=== PATIENT | female | born 1955 | race African-American/Black ===

== ENCOUNTER 2016-12-30 11:55 | Inpatient (IN) | payer SELFPAY ==
[2016-12-30 12:48] LABS: Prothrombin Time 13.9 SEC (12.0-14.7)
[2016-12-30 12:49] LABS: PTT 29.9 SEC (22.9-36.1)
[2016-12-30 13:04] LABS: Band 45 % (5-11); Hematocrit 48.2 % (36.0-47.0); Mean Platelet Volume 10.2 fL (7.4-10.4); Neutrophil 26 % (42-75); Red Blood Cell (RBC) Count 4.76 mill/uL (4.20-5.40); White Blood Cell (WBC) Count 3.5 thou/uL (4.8-10.8)
[2016-12-30 13:07] LABS: ALT (SGPT) 31 U/L (8-55); AST (SGOT) 71 U/L (5-34); Alkaline Phosphatase 111 U/L (40-150); Anion Gap 19 mmol/L (10-20); BUN (Urea Nitrogen) 55 mg/dL (9.8-20.1); Bilirubin, Total 0.6 mg/dL (0.2-1.2); CK (CPK) 674 U/L (29-168); Calc. Creatinine Clearance 0 mL/min (70-130); Calcium 8.8 mg/dL (7.8-10.44); Carbon Dioxide 21 mmol/L (23-31); Chloride 103 mmol/L (98-107); Estimated GFR-MDRD 24; Globulin 4.3 g/dL (2.4-3.5); Protein, Total 7.6 g/dL (6.0-8.3)
[2016-12-30 13:13] LABS: Troponin I 0.089 ng/mL (< 0.028)
[2016-12-30 13:51] LABS: Bilirubin Negative (Negative); Blood, Urine Trace (Negative); Glucose, Urine (Dipstick) Negative (Negative); Ketone, Urine Negative (Negative); Nitrite Positive (Negative); Protein, Urine (Dipstick) Negative (Neg-Trace)
[2016-12-30 13:54] LABS: Bacteria/HPF 4+ HPF (None Seen); Hyaline Casts/LPF 7-10 HYALINE CAST LPF (0-3 Hyaline); RBC/HPF 0-3 HPF (0-3); Squamous Epithelial 0-3 HPF (0-3); WBC/HPF 21-50 HPF (0-3)
--- NOTE | 2016-12-30 13:58 | RAD ---
SINGLE VIEW OF THE CHEST 12/30/16 COMPARISON: 07/31/16 HISTORY: Weakness on the right side with slurred speech. FINDINGS: Single view of the chest shows enlarged but stable cardiomediastinal silhouette with atherosclerotic calcifications in the aorta. The pacemaker is unchanged in position. There is no evidence of consol idation, mass or pleural effusions. IMPRESSION: Cardiomegaly without evidence of acute cardiopulmonary disease. POS: [facility]
--- NOTE | 2016-12-30 14:12 | CT ---
BRAIN CT WITH IV CONTRAST 12/30/16 HISTORY: 61-year-old female with altered mental status, right sided weakness. No focal mass or midline shift. No intra or extra-axial hemorrhage. There is some chronic white rodrigo er ischemic changes. Sinuses and mastoids show no acute process. IMPRESSION: Atrophy and chronic white matter ischemic change without mass or hemorrhage or other acute process. POS: [facility]
--- NOTE | 2016-12-30 14:22 | ULT ---
RIGHT LOWER EXTREMITY VENOUS ULTRASOUND: 12/30/16 COMPARISON: None. HISTORY: Right leg heaviness, weakness, and pain for two days. TECHNIQUE: Multiplanar santana scale and color doppler images were obtained in a right lower extremity venous ultr asound. Spectral analysis of the doppler waveforms were performed. FINDINGS: The right common femoral vein, profunda femoral vein, superficial femoral vein, and popliteal vein a re normal in appearance without visible thrombus. These vessels demonstrate normal compression, flow and augmentation. The posterior tibial vein and greater saphenous vein are also patent on the right . IMPRESSION: No evidence of right lower extremity DVT. POS: [facility]
--- NOTE | 2016-12-30 17:05 | HP ---
DATE OF ADMISSION: 12/30/2016 PRIMARY CARE PHYSICIAN: Dr. Shah in [place]. PRIMARY TRADE CLERK: In [place], she cannot recall the name. CHIEF COMPLAINT: Right leg weakness, slurred speech, cough. HISTORY OF PRESENT ILLNESS: Ms. Davidson is a 61-year-old female, who looks much older than her stated age, who presents to the emergency department today initially for cough and shortness of breath. She then got around and telling about some left leg weakness and generalized body aches. In the emergency department, she had a workup with ultrasound, chest x-ray, brain CT and lab work that was largely unremarkable. We were called for admission for possible TIA. In further talking with the patient, she has got weakness in both of her lower extremities and both of her arms. She is able to lift her left stump up higher likely because it has got less weight, but overall her muscle is just aching and it hurts more to move. She denies any change in vision or hearing, taste or smell. No weakness. No paresthesias anywhere else. She has had no seizure- like activity, no increase in memory difficulties. PAST MEDICAL HISTORY: Includes 1. Coronary artery disease. 2. Hypertension. 3. Anxiety. 4. CHF, unknown type, likely systolic, possibly combined. 5. Hyperlipidemia. 6. Severe obesity. 7. COPD. 8. Peripheral vascular disease. 9. Varicose veins. 10. CKD, likely initially stage 3. Creatinine today is 2.49, back in July it was 1.2. PAST SURGICAL HISTORY: Includes, 1. Left AKA. 2. Hysterectomy. 3. Right knee repair. 4. Breast biopsy and a permanent pacemaker placement. HOME MEDICATIONS: Include, 1. Coreg 12.5 mg p.o. b.i.d. 2. Digoxin 0.125 mg daily. 3. Lasix 40 mg b.i.d. 4. KCl 8 mEq b.i.d. 5. Lisinopril 20 mg daily. 6. Wellbutrin 150 mg p.o. b.i.d. 7. Isosorbide mononitrate 30 mg daily. 8. Klonopin 1 mg daily. 9. Colace 50 mg daily. ALLERGIES: NKDA. FAMILY HISTORY: Negative for clotting or bleeding disorder. No immune dysfunction, no premature coronary disease. SOCIAL HISTORY: Negative for tobacco. She states she only smokes a few cigarettes when does when she gets angry, but was smoking 3 packs per day at her maximum for a number of years. No IV drug use or alcohol history. She lives at home with family. REVIEW OF SYSTEMS: Ten-point review of systems was performed and is negative for all other systems except as stated per HPI. PHYSICAL EXAMINATION: VITAL SIGNS: Temperature 98.2, pulse 72, blood pressure 130/63, respiratory rate list is 22, but she is only breathing 16-18 times a minute. She is satting 93%-95% on 3 liters nasal cannula which is her home oxygen level. GENERAL: She is awake. She is alert. She is oriented x3. She is a chronically ill-appearing, disheveled looking female. She is severely obese. She is not slurring her speech at present. She is still difficult to understand. HEENT: Normocephalic, atraumatic. Pupils equal, round, reactive bilaterally, mucous membranes are moist. She has no visible lesions and no thrush. She has got a nasal cannula with a concentrator in place. NECK: Supple. She has no lymphadenopathy, no JVD, no thyromegaly. I do not appreciate any bruits. Her carotids have normal upstroke. CARDIOVASCULAR: Normal S1 and S2. She has a faint systolic ejection murmur. I do not hear any diastolic rumbles. LUNGS: Have good air movement bilaterally. She has a symmetric chest excursion. She has got a prolonged expiratory phase with end-expiratory high pitched wheezing. This is mild. ABDOMEN: Obese. It is nontender, nondistended with good bowel sounds. I cannot palpate internal organs. EXTREMITIES: No cyanosis or clubbing. She has a left twhfs-[id number]-jzun amputation. There is no edema or redness at the stump site. Her right leg is intact. She has got no edema. The skin is intact. SKIN: Otherwise, warm, moist, well perfused without any other rashes or lesions. MUSCULOSKELETAL: Her hips, right knee, shoulders and bilateral elbows appear normal. She has had no palpable joint effusions. No erythema or heat. She has good range of motion passive and active. There is no pain. Muscles in the thigh right lower extremity, bilateral arms and shoulders are somewhat tender to palpation. NEUROLOGIC: Cranial nerves II-XII are grossly intact without any focal neurologic deficits. She had no normal speech pattern, though she is difficult to understand what she is saying sometimes just to the way she speaks. She has got 4/5 strength in bilateral upper arms. She has got 3-4/5 strength in her left stump. She has got 4/5 strength to her left lower extremity. She got 5/5 plantar and dorsiflexion of her foot and is able to barely raise her leg a bit off the table with a straight leg. LABORATORY EVALUATION: CMP is fairly normal. Electrolytes look good, bicarbonate 21, creatinine is 2.49 with a BUN of 55. Back in July of this year , her creatinine was 1.2. Glucose 145. Alkaline phosphatase is normal. AST elevated at 71, ALT 31. CBC showed a white count 3.5, hemoglobin 15.6, hematocrit 48.4, platelets 118,000. Her CK is elevated 674. INR is 1.1, troponin I 0.089. CK-MB is 1.7. RADIOGRAPHIC STUDIES: She had a vascular ultrasound negative for DVT. She had chest x-ray with increased cardiomegaly. She had a brain CT that showed chronic white matter changes, but no acute intracranial abnormalities. ASSESSMENT AND PLAN: 1. Diffuse muscle ache and weakness. CK is up a little bit. Start her on some IV fluids. We will actually hold her pravastatin at present. I think this certainly could be related to dehydration or having pravastatin on board. She has been on it for quite some time though. 2. Shortness of breath and cough. She does have some reactive airway sounds. We will place her on steroids, neb treatments, and levofloxacin. We will re- evaluate in the morning. 3. Acute kidney injury on stage 2 chronic kidney disease: Creatinine 2.4 now and the BUN 55, ratio greater than 20:1. We will start on gentle hydration with normal saline at 50 mL an hour overnight, recheck in the morning. 4. History of systolic congestive heart failure: Chronic. We will get a 2-D echocardiogram, watch her I's and O's, and hold her Lasix for the time being. I think she might actually be dry. 5. Hyperlipidemia, as above. 6. Severe obesity. 7. Hypertension. We will continue her regular antihypertensives with the exception of her lisinopril and her Lasix. We will hold these for the above stated renal reasons. Place the patient in observation, watch her overnight and reevaluate in the morning. JILLIAN
[2016-12-30 18:15] LABS: Troponin I 0.092 ng/mL (< 0.028)
[2016-12-30] MEDS ORDERED: Ondansetron HCl/PF 4 MG/2 ML Vial IVP PRN (18:17)
[2016-12-30] MEDS ORDERED: Ondansetron ODT 4 MG TAB SL PRN (18:17)
[2016-12-30] MEDS ORDERED: Acetaminophen 325 MG TAB PO PRN (18:40)
[2016-12-30] MEDS ORDERED: Enoxaparin Sodium 30 MG/0.3 ML SYRINGE SC SCH (18:40)
[2016-12-30] MEDS ORDERED: Albuterol Sulfate 2.5 mg/3 ml Neb NEB PRN (18:40)
[2016-12-30] MEDS ORDERED: HYDROcodone/Acetaminophen 10/325 mg Tablet PO PRN (18:40)
[2016-12-30] MEDS ORDERED: predniSONE 20 MG TAB PO SCH (18:40)
[2016-12-30] MEDS ORDERED: HYDROcodone/Acetaminophen 5/325 mg Tablet PO PRN (18:40)
[2016-12-30] MEDS: Carvedilol 6.25 MG TAB PO SCH (21:20)
[2016-12-30] MEDS: Sodium Chloride 0.9% 1,000 ML IV SCH (21:22)
--- NOTE | 2016-12-30 23:24 | PDOC.EVN ---
Event Note - Event Note Event Note: RN called - Pt had short run of NSVT. Echo pend. Add Mg and digoxin level to AM labs.
[2016-12-31 05:10] LABS: #Lymphocytes 0.9 thou/uL (1.20-3.40); #Monocytes 0.1 thou/uL (0.11-0.59); #Neutrophils 2.4 thou/uL (1.40-6.50); %Basophils 0.6 % (0.0-1.0); %Eosinophils 0.1 % (0.0-10.0); %Lymphocytes 26.9 % (21.0-51.0); %Monocytes 1.7 % (0.0-10.0); Mean Platelet Volume 10.4 fL (7.4-10.4); Red Blood Cell (RBC) Count 4.42 mill/uL (4.20-5.40); White Blood Cell (WBC) Count 3.4 thou/uL (4.8-10.8)
[2016-12-31 05:27] LABS: Digoxin 1.29 ng/mL (0.8-2.0)
[2016-12-31 05:29] LABS: Anion Gap 15 mmol/L (10-20); BUN (Urea Nitrogen) 52 mg/dL (9.8-20.1); BUN/Creatinine Ratio 26.13; Calc. Creatinine Clearance 33 mL/min (70-130); Calcium 8.6 mg/dL (7.8-10.44); Carbon Dioxide 26 mmol/L (23-31); Chloride 105 mmol/L (98-107); Estimated GFR-MDRD 31; Magnesium 2.3 mg/dL (1.6-2.6); Phosphorus 3.6 mg/dL (2.3-4.7)
[2016-12-31] MEDS ORDERED: FLU VACC QS2017-18 36 mo. & older 0.5 ML SYRINGE IM ONE (09:00)
[2016-12-31] MEDS: predniSONE 20 MG TAB PO SCH (10:00)
[2016-12-31] MEDS: Aspirin 325 MG TAB PO SCH (10:01)
[2016-12-31] MEDS: Carvedilol 6.25 MG TAB PO SCH ×2 (10:04→20:37)
[2016-12-31] MEDS: Digoxin 0.125 MG TAB PO SCH (10:06)
--- NOTE | 2016-12-31 14:38 | PDOC.PN ---
- Subjective Encounter Start Date: 12/31/16 Encounter Start Time: 12:00 Pt seen and examined. overnight events reviewed. Pt feels a little better, but still weak. No f/c, no dysuria. non/V/d/C, no CP, SOB about the smae and at baseline CK improved, renal function improved. Pt has a short run on NSVT overnight. 10 point ROS performed and neg for all systems except as above - Objective Resuscitation Status: Resuscitation Status FULL:Full Resuscitation MAR Reviewed: Yes Vital Signs & Weight: Vital Signs (12 hours) Temp Pulse Resp BP BP Pulse Ox 12/31/16 14:27 61 18 100 12/31/16 11:35 97.4 F L 50 L 16 125/62 95 12/31/16 10:06 47 L 12/31/16 08:00 97.1 F L 47 L 16 12/31/16 07:35 97.1 F L 49 L 16 135/63 97 12/31/16 06:06 59 L 16 100 12/31/16 04:33 97.3 F L 55 L 18 117/59 L 94 L Weight Admit Weight 157 lb 4.8 oz Weight 157 lb 4.8 oz I&O: 12/30/16 12/31/16 01/01/17 06:59 06:59 06:59 Intake Total 500 Output Total 0 Balance 500 Result Diagrams: 12/31/16 04:39 12/31/16 04:39 Radiology Reviewed by me: Yes EKG Reviewed by me: Yes Phys Exam - Physical Examination HEENT: PERRLA, moist MMs, sclera anicteric, oral pharynx no lesions Neck: no nodes, no JVD, supple, full ROM Respiratory: no wheezing, no rales, no rhonchi, clear to auscultation bilateral Cardiovascular: RRR, no rub murmurs stable Gastrointestinal: soft, non-tender, no distention, positive bowel sounds no RLE edema, left stumps intact Neurological: non-focal, normal sensation, moves all 4 limbs strength in BLE about the same, UE better than LE, stable Lymphatic: no nodes Psychiatric: normal affect, A&O x 3 Skin: no rash, normal turgor, cap refill <2 seconds Dx/Plan (1) Chronic systolic CHF (congestive heart failure) Code(s): I50.22 - CHRONIC SYSTOLIC (CONGESTIVE) HEART FAILURE Status: Acute (2) Physical deconditioning Code(s): R53.81 - OTHER MALAISE Status: Acute (3) Moderate dehydration Code(s): E86.0 - DEHYDRATION Status: Acute (4) CKD (chronic kidney disease) stage 3, GFR 30-59 ml/min Code(s): N18.3 - CHRONIC KIDNEY DISEASE, STAGE 3 (MODERATE) Status: Acute (5) HERNESTO (acute kidney injury) Code(s): N17.9 - ACUTE KIDNEY FAILURE, UNSPECIFIED Status: Acute (6) Rhabdomyolysis Code(s): M62.82 - RHABDOMYOLYSIS Status: Acute (7) Chronic hypoxemic respiratory failure Code(s): J96.11 - CHRONIC RESPIRATORY FAILURE WITH HYPOXIA Status: Acute (8) CAD (coronary artery disease) Code(s): I25.10 - ATHSCL HEART DISEASE OF [place] CORONARY ARTERY W/O ANG PCTRS Status: Chronic Qualifiers: Coronary Disease-Associated Artery/Lesion type: [place] artery [place] vs. transplanted heart: [place] heart Associated angina: without angina Qualified Code(s): I25.10 - Atherosclerotic heart disease of [place] coronary artery without angina pectoris Comment: No evidence of ACS, continue ASA 325mg daily and Lipitor 10mg daily (9) COPD (chronic obstructive pulmonary disease) Status: Chronic Comment: Continue Duonebs, inv steroids (10) HLD (hyperlipidemia) Code(s): E78.5 - HYPERLIPIDEMIA, UNSPECIFIED Status: Chronic - Plan * . renal functioning improving. contnue gently hydration, hold lasix. recheck in AM doubt TIA. follow up on imaging. suspect all just deconditioning with possible muscle weakness form rhabdo CK improved. CCM with hydration Continue home meds except for lasix and ACEI and statin change to inpatient. triglycerides 375.
[2016-12-31] MEDS: Sodium Chloride 0.9% 1,000 ML IV SCH (16:22)
[2017-01-01 04:50] LABS: Anion Gap 13 mmol/L (10-20); BUN (Urea Nitrogen) 50 mg/dL (9.8-20.1); CK (CPK) 171 U/L (29-168); Calc. Creatinine Clearance 44 mL/min (70-130); Calcium 8.7 mg/dL (7.8-10.44); Carbon Dioxide 26 mmol/L (23-31); Chloride 105 mmol/L (98-107); Estimated GFR-MDRD 43
[2017-01-01 05:25] LABS: Band 23 % (5-11); Hematocrit 43.6 % (36.0-47.0); Mean Platelet Volume 10.8 fL (7.4-10.4); Neutrophil 43 % (42-75); Red Blood Cell (RBC) Count 4.27 mill/uL (4.20-5.40); White Blood Cell (WBC) Count 2.6 thou/uL (4.8-10.8)
[2017-01-01] MEDS: predniSONE 20 MG TAB PO SCH (09:02)
[2017-01-01] MEDS: Aspirin 325 MG TAB PO SCH (09:02)
[2017-01-01] MEDS: Carvedilol 6.25 MG TAB PO SCH (09:03)
[2017-01-01] MEDS: Ondansetron ODT 4 MG TAB PO PRN (10:59)
[2017-01-01] MEDS: Digoxin 0.125 MG TAB PO SCH (11:04)
[2017-01-01] MEDS: Sodium Chloride 0.9% 1,000 ML IV SCH (13:16)
--- NOTE | 2017-01-01 14:26 | PDOC.PN ---
- Subjective Encounter Start Date: 01/01/17 Encounter Start Time: 09:45 Pt seen and examined earlier on rounds. Pt has been bradycardic all night, in the 40s and 50s. Pacer kicks on at HR 40 and demand paces. Pt denies CP, some WEINSTEIN, no N/V/D/c, no cough. Still complains of wekaness, but denies syncope or presyncope. 10 point ROS performed and neg x as above - Objective Resuscitation Status: Resuscitation Status FULL:Full Resuscitation MAR Reviewed: Yes Vital Signs & Weight: Vital Signs (12 hours) Temp Pulse Resp BP BP Pulse Ox 01/01/17 12:00 97.7 F 46 L 20 128/59 L 99 01/01/17 11:09 97.7 F 01/01/17 11:04 49 L 01/01/17 09:03 131/61 01/01/17 08:59 97.7 F 49 L 20 100 01/01/17 08:00 42 L 20 131/61 100 01/01/17 06:37 60 16 01/01/17 04:00 98.3 F 41 L 18 118/66 99 Weight Admit Weight 157 lb 4.8 oz Weight 157 lb 4.8 oz I&O: 12/31/16 01/01/17 01/02/17 06:59 06:59 06:59 Intake Total 500 960 Output Total 0 0 Balance 500 960 Result Diagrams: 01/01/17 03:45 01/01/17 03:45 Radiology Reviewed by me: Yes EKG Reviewed by me: Yes Phys Exam - Physical Examination Constitutional: NAD HEENT: PERRLA, moist MMs, sclera anicteric Neck: no nodes, no JVD, supple, full ROM Respiratory: no wheezing, no rales, no rhonchi, clear to auscultation bilateral Cardiovascular: no significant murmur, no rub regular, liberty cardic, occasional ectopy Gastrointestinal: soft, non-tender, no distention, positive bowel sounds Musculoskeletal: no edema, pulses present Left AKA stump without edema or erythema Neurological: non-focal, normal sensation, moves all 4 limbs Lymphatic: no nodes Psychiatric: normal affect, A&O x 3 Skin: no rash, normal turgor, cap refill <2 seconds Dx/Plan (1) Chronic systolic CHF (congestive heart failure) Code(s): I50.22 - CHRONIC SYSTOLIC (CONGESTIVE) HEART FAILURE Status: Chronic (2) Physical deconditioning Code(s): R53.81 - OTHER MALAISE Status: Acute Comment: may be from bradycardia (3) Moderate dehydration Code(s): E86.0 - DEHYDRATION Status: Resolved (4) CKD (chronic kidney disease) stage 3, GFR 30-59 ml/min Code(s): N18.3 - CHRONIC KIDNEY DISEASE, STAGE 3 (MODERATE) Status: Chronic (5) HERNESTO (acute kidney injury) Code(s): N17.9 - ACUTE KIDNEY FAILURE, UNSPECIFIED Status: Resolved Comment : Cr down to 1.4. normal around 1.2-1.3 (6) Rhabdomyolysis Code(s): M62.82 - RHABDOMYOLYSIS Status: Resolved Qualifiers: Rhabdomyolysis type: non-traumatic Qualified Code(s): M62.82 - Rhabdomyolysis (7) Chronic hypoxemic respiratory failure Code(s): J96.11 - CHRONIC RESPIRATORY FAILURE WITH HYPOXIA Status: Chronic (8) CAD (coronary artery disease) Code(s): I25.10 - ATHSCL HEART DISEASE OF [place] CORONARY ARTERY W/O ANG PCTRS Status: Chronic Qualifiers: Coronary Disease-Associated Artery/Lesion type: [place] artery [place] vs. transplanted heart: [place] heart Associated angina: without angina Qualified Code(s): I25.10 - Atherosclerotic heart disease of [place] coronary artery without angina pectoris Comment: No evidence of ACS, continue ASA 325mg daily and Lipitor 10mg daily (9) COPD (chronic obstructive pulmonary disease) Status: Chronic Comment: Continue Duonebs, inv steroids (10) HLD (hyperlipidemia) Code(s): E78.5 - HYPERLIPIDEMIA, UNSPECIFIED Status: Chronic - Plan cont current plan of care, PT/OT, social security benefits interviewer will get pacer interrogated, hold BBlocker and dig, consult cardiology * .
[2017-01-02] MEDS: Ondansetron ODT 4 MG TAB PO PRN (02:42)
[2017-01-02 05:20] LABS: #Lymphocytes 0.7 thou/uL (1.20-3.40); #Monocytes 0.2 thou/uL (0.11-0.59); #Neutrophils 2.8 thou/uL (1.40-6.50); %Eosinophils 0.2 % (0.0-10.0); %Lymphocytes 18.6 % (21.0-51.0); %Monocytes 5.4 % (0.0-10.0); Hematocrit 43.3 % (36.0-47.0); Red Blood Cell (RBC) Count 4.24 mill/uL (4.20-5.40); White Blood Cell (WBC) Count 3.7 thou/uL (4.8-10.8)
[2017-01-02 05:29] LABS: Anion Gap 13 mmol/L (10-20); BUN (Urea Nitrogen) 47 mg/dL (9.8-20.1); Calc. Creatinine Clearance 49 mL/min (70-130); Calcium 9.1 mg/dL (7.8-10.44); Carbon Dioxide 26 mmol/L (23-31); Chloride 106 mmol/L (98-107); Estimated GFR-MDRD 49
--- NOTE | 2017-01-02 06:00 | CON ---
DATE OF CONSULTATION: 01/01/2017 HISTORY OF PRESENT ILLNESS: Verenice Davidson is a 61-year-old black female with longstanding history of cardiomyopathy with ejection fraction of approximately 15%, probably due to hypertensive cardiovascular disease and coronary artery disease. She apparently underwent cardiac catheterization at [facility] in 2001 or 2002 according to the patient, which demonstrated an occluded vessel. She never underwent any intervention and has been treated medically. In 10/2009, she had a nuclear scan in [place], showing a moderate size area of scarring of the proximal to distal inferior wall, but no ischemia. She was having frequent exacerbations of her congestive heart failure with multiple hospitalizations. There also was a question regarding compliance of her medications. She was cared for by [facility] for a period of time until they stopped using this hospital. I then assumes her care in 2011, although she has never come to the office for followup. In 11/2011, she underwent placement of a single-chamber ICD. In 02/2012, she was admitted with heart failure due to dietary noncompliance. She also ran out of Lasix for one week prior to the admission. She has had multiple other admissions for heart failure. Her last admission was in 07/2016 when she was admitted due to noncompliance with medicines and food. She now presents to the emergency room with complaining of cough and increased shortness of breath. She also states that she has had general body aches as well as severe weakness of her left leg with inability to lift it. She has been found to be extremely bradycardic at times, requiring ventricular pacing at 40 per minute with her single-chamber ICD. She denies any chest discomfort. PAST MEDICAL HISTORY: Coronary artery disease, hypertension, hyperlipidemia, severe cardiomyopathy, obesity, COPD, peripheral vascular disease, chronic kidney disease. OPERATIONS: A single-chamber ICD placement, left ylkkf-[id number] amputation, hysterectomy, right knee surgery, and breast biopsy. HOME MEDICATIONS: Include carvedilol 12.5 b.i.d., digoxin 0.125 q.a.m., Lasix 40 b.i.d., KCl 10 mEq b.i.d., lisinopril 20 daily, Wellbutrin 150 b.i.d., isosorbide mononitrate 30 q.a.m., Colace daily, and Klonopin 1 mg daily. ALLERGIES: None. SOCIAL HISTORY: She continues to smoke occasionally. She had smoked up to 3 packs per day in the past. No alcohol. FAMILY HISTORY: Negative for myocardial infarction, CABG. REVIEW OF SYSTEMS: A 12 point review of systems otherwise unremarkable. PHYSICAL EXAMINATION: VITAL SIGNS: Blood pressure 117/59, pulse of 45. HEENT: PERRL. NECK: Supple. CHEST: Reveals distant breath sounds. CARDIOVASCULAR: S1 and S2 are normal, without any S3, S4, or murmurs. ABDOMEN: Normal bowel sounds without tenderness or organomegaly. EXTREMITIES: Revealed left qmtyl-wvy-zvsg amputation. There is no right leg edema. NEUROLOGIC: Grossly intact. SKIN: Warm and dry. LABORATORY AND DIAGNOSTIC DATA: EKG revealed normal sinus rhythm with episodes of nonsustained ventricular tachycardia. Interrogation of her ICD also demonstrates that she has significant episodes of nonsustained ventricular tachycardia, especially in early August when she had approximately 8 in one day. Over the last 2 months, her episodes have been less frequent. She ventricularly paces 0.3% of the time; however, on the monitor here, she is ventricularly pacing quite frequently. She was in sinus rhythm, although at times has long pauses and is ventricularly paced. Echocardiogram reveals moderate left ventricular enlargement with ejection fraction of 10% to 15%, evidence of diastolic dysfunction, defibrillator via the right ventricle, large right ventricle, left atrium enlargement, [id number]-jn-[id number] mitral regurgitation , mitral annular calcification, and mild tricuspid regurgitation. Hemoglobin 14.3, hematocrit 43.6, white count 2600, platelets 114,000. INR 1.1, sodium 139 , potassium 4.5, chloride 105, carbon dioxide 26, BUN 50, creatinine 1.47. Cholesterol 160, triglycerides 375, HDL 9, LDL 76. Troponin I 0.092. IMPRESSION: 1. Chronic systolic congestive heart failure, EF 15%.. 2. Probable coronary artery disease from her history and finding of a fixed inferior defect on scan in the past. 3. Moderate mitral regurgitation. 4. Status post single-chamber ICD. 5. Smoker, [employer] exacerbation. 6. History of nonsustained ventricular tachycardia with multiple episodes up to 8 a day in early August. However, these seem to be less frequent present time. 7. Cocaine abuse in the past. 8. History of noncompliance. 9. Renal insufficiency 10. Hypercholesterolemia. 11. Probable UTI, on Levaquin. PLAN: With her extreme sinus bradycardia, carvedilol will be held. She probably needs to undergo upgrade to a dual chamber ICD. Certainly her severe bradycardia as well as ventricularly pacing with her ejection fraction of 15% that could explain her episode of severe weakness at home. Electrophysiology will be consulted regarding upgrade to a dual chamber ICD. JILLIAN
[2017-01-02] MEDS: Sodium Chloride 0.9% 1,000 ML IV SCH (06:13)
[2017-01-02] MEDS: predniSONE 20 MG TAB PO SCH (09:08)
[2017-01-02] MEDS: Aspirin 325 MG TAB PO SCH (09:08)
[2017-01-02] MEDS ORDERED: Benzonatate 100 MG CAP PO PRN (11:31)
--- NOTE | 2017-01-02 11:35 | PDOC.PN ---
- Subjective Encounter Start Date: 01/02/17 Encounter Start Time: 11:25 Subjective: f/u for dyspnea, cough in context of severe CM EF 15% with AICD. -: Feels better overall. HERNESTO resolving. EP evaluation for ICD upgrade to -: dual-chamber device. - Objective Resuscitation Status: Resuscitation Status DNR:Do Not Resuscitate MAR Reviewed: Yes Vital Signs & Weight: Vital Signs (12 hours) Temp Pulse Resp BP Pulse Ox 01/02/17 08:00 97.4 F L 65 22 H 143/64 H 99 01/02/17 07:31 64 15 97 01/02/17 04:29 97.7 F 68 18 142/72 H 98 01/02/17 03:46 99 01/02/17 00:27 62 16 98 01/02/17 00:16 97.4 F L 65 18 138/62 100 Weight Admit Weight 157 lb 4.8 oz Weight 157 lb 4.8 oz I&O: 01/01/17 01/02/17 01/03/17 06:59 06:59 06:59 Intake Total 960 1300 Output Total 0 150 Balance 960 1150 Result Diagrams: 01/02/17 03:56 01/02/17 03:56 Radiology Reviewed by me: Yes (2D echo - EF 10-15%, mod LAE, diast dysfxn) EKG Reviewed by me: Yes (Tele - sinus bradycardia, A-sensed, V-paced 40-50's) Phys Exam - Physical Examination Constitutional: NAD HEENT: PERRLA, oral pharynx no lesions Neck: no JVD, supple wheezing bilat, diminished in bases Cardiovascular: RRR Gastrointestinal: soft, non-tender, no distention, positive bowel sounds Musculoskeletal: no edema, pulses present Neurological: normal sensation, moves all 4 limbs Psychiatric: A&O x 3 Skin: normal turgor, cap refill <2 seconds Dx/Plan (1) HERNESTO (acute kidney injury) Code(s): N17.9 - ACUTE KIDNEY FAILURE, UNSPECIFIED Status: Resolved Comment : Improved, continue supportive mgmt, hold Lisinopril another 24h (2) CKD (chronic kidney disease) stage 3, GFR 30-59 ml/min Code(s): N18.3 - CHRONIC KIDNEY DISEASE, STAGE 3 (MODERATE) Status: Chronic Comment: See #1 (3) Chronic hypoxemic respiratory failure Code(s): J96.11 - CHRONIC RESPIRATORY FAILURE WITH HYPOXIA Status: Chronic Comment: Baseline O2 requirements (4) Chronic systolic CHF (congestive heart failure) Code(s): I50.22 - CHRONIC SYSTOLIC (CONGESTIVE) HEART FAILURE Status: Chronic Comment: Resume Lasix 40mg BID (5) Rhabdomyolysis Code(s): M62.82 - RHABDOMYOLYSIS Status: Resolved Qualifiers: Rhabdomyolysis type: non-traumatic Qualified Code(s): M62.82 - Rhabdomyolysis Comment: Resolving (6) Bradycardia Code(s): R00.1 - BRADYCARDIA, UNSPECIFIED Status: Acute Comment: ? subacute , off Coreg, evaluation for ICD upgrade per EP (7) CAD (coronary artery disease) Code(s): I25.10 - ATHSCL HEART DISEASE OF [place] CORONARY ARTERY W/O ANG PCTRS Status: Chronic Qualifiers: Coronary Disease-Associated Artery/Lesion type: [place] artery [place] vs. transplanted heart: [place] heart Associated angina: without angina Qualified Code(s): I25.10 - Atherosclerotic heart disease of [place] coronary artery without angina pectoris Comment: Continue ASA 325mg daily (8) HLD (hyperlipidemia) Code(s): E78.5 - HYPERLIPIDEMIA, UNSPECIFIED Status: Chronic Comment: Will hold statin another 48h then resume due to rhabdomyolysis (9) PVD (peripheral vascular disease) Code(s): I73.9 - PERIPHERAL VASCULAR DISEASE, UNSPECIFIED Status: Chronic - Plan continue antibiotics, PT/OT, drug abuse social worker, respiratory therapy Stable overall -: Continue ASA 325mg daily -: EP evaluation for AICD upgrade -: Palliative care screening appreciated -: PT for mobilization * Resume Lasix 40mg BID * Change Duonebs q4h * AM lab: BMP
[2017-01-02] MEDS: Furosemide 40 MG TAB PO SCH (14:15)
[2017-01-02] MEDS: clonazePAM 1 MG TAB PO SCH (21:30)
[2017-01-03] MEDS: Furosemide 40 MG TAB PO SCH ×2 (05:17→14:36)
[2017-01-03 05:32] LABS: Anion Gap 15 mmol/L (10-20); BUN (Urea Nitrogen) 37 mg/dL (9.8-20.1); Calc. Creatinine Clearance 53 mL/min (70-130); Calcium 9.3 mg/dL (7.8-10.44); Carbon Dioxide 25 mmol/L (23-31); Chloride 106 mmol/L (98-107); Estimated GFR-MDRD 52
[2017-01-03 05:41] LABS: Bilirubin Negative (Negative); Blood, Urine Negative (Negative); Glucose, Urine (Dipstick) Negative (Negative); Ketone, Urine Negative (Negative); Nitrite Negative (Negative); Protein, Urine (Dipstick) Negative (Neg-Trace); Urobilinogen 0.2 mg/dL (0.2-1.0)
[2017-01-03 05:44] LABS: Bacteria/HPF None Seen HPF (None Seen); Hyaline Casts/LPF 0-3 HYALINE CAST LPF (0-3 Hyaline); RBC/HPF 0-3 HPF (0-3); Squamous Epithelial 0-3 HPF (0-3); WBC/HPF None Seen HPF (0-3)
[2017-01-03] MEDS: predniSONE 20 MG TAB PO SCH (07:47)
[2017-01-03] MEDS: Aspirin 325 MG TAB PO SCH (07:50)
[2017-01-03] MEDS: clonazePAM 1 MG TAB PO SCH ×2 (07:50→21:31)
[2017-01-03] MEDS: Bupropion 150 MG SR TAB PO SCH ×2 (07:50→21:31)
[2017-01-03] MEDS ORDERED: Furosemide 40 MG/4 ML VIAL SLOW IVP SCH (08:00)
--- NOTE | 2017-01-03 08:14 | PDOC.EVN ---
Event Note - Event Note Event Note: called to evaluate pt for sob, rr- 28, sat 95 0n 2 lit chest- prolonged expiratory phase, some bibasilar rales a/p sob due to chf and component of copd will give one dose of 60 mg iv lasix, pt on prednisone, pt also got 2 neb rx f/u cxr and abg will put her on bipap and transfer to [facility]
[2017-01-03] MEDS ORDERED: Furosemide 100 MG/10 ML VIAL SLOW IVP SCH (08:15)
[2017-01-03] MEDS ORDERED: Morphine 4 MG/ML VIAL ONE (09:56)
--- NOTE | 2017-01-03 10:21 | CON ---
DATE OF CONSULTATION: 01/03/2017 REFERRING PHYSICIAN: Dr. Walt Frank. REASON FOR CONSULTATION: Cardiomyopathy and congestive heart failure combined with bradycardia - mel luation for upgrade of ICD to Dual chamber/cardiac resynchronization therapy system. HISTORY OF PRESENT ILLNESS: I was asked by Dr. Frank to provide electrophysiology consultation fo r Ms. Davidson, a 61-year-old lady known to our service with a history of single chamber ICD implantat ion in 2011. She has a known ejection fraction of approximately 15%. She was admitted to the [facility] on 12/31/2016 with increasing dyspnea and cough. She has decompensated congestive heart failure, and has been found to have periods of significant bradycardia. Her carvedilol has been held, and I a m asked to consider her for upgrade of her device to a dual chamber pacing system. Further, she has developed left bundle branch block and would be a candidate for a cardiac resynchronization therapy p acing. This morning, she is being moved to the [facility] due to severe hypoxia. On 2 liters nasal cannula oxygen her blood gas pO2 was 54. She is sitting upright in bed and has bilateral wheezes on exam. She is g asping for air. Her rhythm this morning is stable with a rate in the 60-70 beats per minute range. PAST MEDICAL HISTORY: 1. Chronic systolic congestive heart failure with ejection fraction of 15%. 2. History of moderate mitral regurgitation. 3. Single chamber ICD in situ. 4. Chronic obstructive pulmonary disease. 5. History of cocaine abuse. 6. History of noncompliance. 7. Renal insufficiency. CURRENT MEDICATIONS: Albuterol, aspirin, furosemide, isosorbide mononitrate, levofloxacin, prednison e. ALLERGIES: None. FAMILY HISTORY: No family history of arrhythmias. SOCIAL HISTORY: Continued tobacco use. No alcohol. REVIEW OF SYSTEMS: Twelve point system review was discussed with Ms. Davidson. Aside from a cough, w eakness and dyspnea others negative. PHYSICAL EXAMINATION: VITAL SIGNS: Blood pressure 126/72, pulse is 65 and regular. GENERAL: She is alert and oriented with appropriate affect. HEENT: Moist mucous membranes. Nonicteric sclerae. NECK: No bruits. Normal thyroid. No JVD. CHEST: Decreased breath sounds with bilateral rales. HEART: Regular rate and rhythm without murmurs or gallops auscultable. The PMI is laterally displac ed. ABDOMEN: Bowel sounds positive, normoactive and nontender. No hepatosplenomegaly or masses. EXTREMITIES: Left above the knee amputation. No edema. NEUROLOGIC: Grossly intact. DIAGNOSTIC DATA: EKG on admission demonstrates normal sinus rhythm at 87 beats per minute, left bund le branch block, nonspecific ST-T wave changes. WBC 3.7, hemoglobin 13.6, hematocrit 43.3, platelet count 144,000, BUN 37, creatinine 1.26, potassium 4.5. ABG on 2 liters nasal cannula, pO2 54, pH 7.4 8. IMPRESSION: 1. Severe cardiomyopathy with ejection fraction of 15%. 2. Decompensating congestive heart failure. 3. Chronic obstructive pulmonary disease. 4. Bradycardia/left bundle branch block. RECOMMENDATIONS: Ms. Davidson is certainly a candidate for upgrade of her single chamber ICD to a car diac resynchronization therapy device, which would hopefully improve her congestive heart failure and allow reintroduction of beta suzanne therapy. However, she is in respiratory distress currently and certainly cannot lay flat. She is moving to the [facility] now for more aggressive therapy including BiPAP and nebulizer therapies and further diuresis. When she is stable from a heart failure/pulmonary standpoint, we will plan upgrade of her device. I described to her the rationale for that procedure along with risks involved. She understands the ris ks include but are not limited to bleeding, infection, damage to blood vessels, hemo/pneumothorax, pe ricardial tamponade, stroke, myocardial infarction, . She would like to proceed after her pulmo nary status has improved.
--- NOTE | 2017-01-03 10:22 | RAD ---
PORTABLE CHEST: Comparison: 12-30-16 History: Shortness of breath. FINDINGS: Heart size is enlarged. Interstitial markings are slightly increased and appear slightly more promine nt than on the prior exam suggesting some element of edema. IMPRESSION: Cardiomegaly with chronic lung changes, however, the interstitial changes appear more prominent than on the prior exam suggesting there may be some element of edema present. POS: [facility]
--- NOTE | 2017-01-03 10:57 | CON ---
DATE OF CONSULTATION: 01/03/2017 HISTORY OF PRESENT ILLNESS: She is a 61-year-old DNR patient who was transferred from the [facility] to the [facility] for respiratory distress. She has been here in the hospital now for several days. She was to have some kind of a pacemaker adj ustment done. She has cardiomyopathy, ejection fraction 15%. At this stage it is difficult to get any additional information from her. She was placed on BiPAP fo r comfort measures. She has undergone extensive evaluation in the past at different areas. She is d enying any chest pain, chills, sweats, hemoptysis. She was found to be bradycardic on admission with a ventricular rate of 40, single chamber. I understand they want to switch her to a dual chamber. PAST MEDICAL HISTORY: Chronic obstructive pulmonary disease, coronary artery disease, hypertension, dyslipidemia, cardiomyopathy 15%, obesity, renal failure, peripheral vascular disease. PAST SURGICAL HISTORY: Multiple as outlined extensively including hysterectomy, knee, breast biopsy, pacemaker, stent, left [place] amputation. MEDICATIONS: Coreg 12.5, Lasix 40, Tessalon, potassium, ISMO 30, Lasix 20, bupropion 150, Zestril 20 . REVIEW OF SYSTEMS: Difficult to obtain. PHYSICAL EXAMINATION: VITAL SIGNS: Blood pressure 171/80, sats apparently low, now they are 100%, respirations 32, tempera ture 98. CHEST: She has bilateral crackles. CARDIAC: Normal S1-S2. ABDOMEN: Soft. No masses. LABORATORY: White count 3.7, H&H 13 and 43, platelet count is normal. Chemistry shows creatinine 1. 2. Electrolytes are normal. X-ray shows CHF. IMPRESSION: 1. Respiratory failure secondary to congestive heart failure. 2. Encephalopathy. 3. Bradycardiac. 4. Renal failure. 5. Chronic obstructive pulmonary disease. PLAN: I have added steroids, neb treatments, supportive care, noninvasive ventilation. I will follow while in the [facility].
[2017-01-03] MEDS ORDERED: Morphine PF 1 MG/ML SYR IVP PRN (12:11)
--- NOTE | 2017-01-03 15:12 | PDOC.PN ---
- Subjective Encounter Start Date: 01/03/17 Encounter Start Time: 12:00 Subjective: f/u for cough, dyspnea. Developed severe resp distress overnight requiring -: BiPAP and IV Lasix. Improved overall currently. Evaluation in progress for -: AICD upgrade. Off BiPAP currently. - Objective Resuscitation Status: Resuscitation Status DNR:Do Not Resuscitate MAR Reviewed: Yes Vital Signs & Weight: Vital Signs (12 hours) Temp Pulse Resp BP Pulse Ox 01/03/17 14:00 71 18 99 01/03/17 12:00 99.1 F 74 17 97/68 97 01/03/17 10:00 95 24 H 99 01/03/17 08:52 88 32 H 171/88 H 100 01/03/17 08:50 90 01/03/17 08:44 98.3 F 96 32 H 99 01/03/17 08:00 98.3 F 96 22 H 96 01/03/17 07:30 98.3 F 96 22 H 173/114 H 100 01/03/17 07:20 85 28 H 94 L 01/03/17 07:15 91 L 01/03/17 07:11 82 32 H 91 L 01/03/17 05:13 98.8 F 87 20 135/95 H 100 Weight Admit Weight 157 lb 4.8 oz Weight 162 lb 1.6 oz I&O: 01/02/17 01/03/17 01/04/17 06:59 06:59 06:59 Intake Total 1300 830 240 Output Total 150 1100 Balance 1150 -270 240 Result Diagrams: 01/02/17 03:56 01/03/17 05:03 Additional Labs: Microbiology 04/17/16 04:10 Urine voided Urine Culture - Final NO GROWTH AT 36 HOURS Laboratory Tests 02/25/16 03/26/16 04/15/16 08:48 Unknown 18:29 Creatinine 1.48 H Phosphorus Creatine Kinase B-Natriuretic Peptide 3686.8 H 3238.9 H 25-OH Vitamin D Total 04/15/16 04/16/16 04/16/16 18:29 05:53 05:53 Creatinine 1.60 H Phosphorus 4.8 H Creatine Kinase B-Natriuretic Peptide 451.7 H 25-OH Vitamin D Total 17.4 L 04/17/16 04/18/16 12/30/16 06:03 05:42 12:32 Creatinine 1.72 H Phosphorus 3.7 3.9 Creatine Kinase 674 H B-Natriuretic Peptide 25-OH Vitamin D Total 12/31/16 12/31/16 01/01/17 04:39 04:39 03:45 Creatinine 1.99 H 1.47 H Phosphorus Creatine Kinase 374 H 171 H B-Natriuretic Peptide 25-OH Vitamin D Total 01/02/17 03:56 Creatinine 1.33 H Phosphorus Creatine Kinase B-Natriuretic Peptide 25-OH Vitamin D Total Radiology Reviewed by me: Yes (PCXR - bilat pulm edema) EKG Reviewed by me: Yes (Tele - sinus liberty, V-paced) Phys Exam - Physical Examination Constitutional: NAD lethargic but answers questions HEENT: PERRLA, oral pharynx no lesions Neck: no JVD, supple basilar crackles Cardiovascular: RRR Gastrointestinal: soft, non-tender, no distention, positive bowel sounds Musculoskeletal: no edema, pulses present Neurological: moves all 4 limbs Psychiatric: A&O x 3 Skin: normal turgor, cap refill <2 seconds Dx/Plan (1) Acute on chronic systolic (congestive) heart failure Code(s): I50.23 - ACUTE ON CHRONIC SYSTOLIC (CONGESTIVE) HEART FAILURE Status : Acute Comment: EF 10-15%, likely more chronic component with acute exacerbation, Lasix, EP evaluation for AICD upgrade (2) HERNESTO (acute kidney injury) Code(s): N17.9 - ACUTE KIDNEY FAILURE, UNSPECIFIED Status: Resolved Comment : Improved, continue supportive mgmt, hold Lisinopril another 24h (3) CKD (chronic kidney disease) stage 3, GFR 30-59 ml/min Code(s): N18.3 - CHRONIC KIDNEY DISEASE, STAGE 3 (MODERATE) Status: Chronic Comment: See #1 (4) Chronic hypoxemic respiratory failure Code(s): J96.11 - CHRONIC RESPIRATORY FAILURE WITH HYPOXIA Status: Chronic Comment: Baseline O2 requirements (5) Chronic systolic CHF (congestive heart failure) Code(s): I50.22 - CHRONIC SYSTOLIC (CONGESTIVE) HEART FAILURE Status: Chronic Comment: Resume Lasix 40mg BID (6) Rhabdomyolysis Code(s): M62.82 - RHABDOMYOLYSIS Status: Resolved Qualifiers: Rhabdomyolysis type: non-traumatic Qualified Code(s): M62.82 - Rhabdomyolysis Comment: Resolving (7) Bradycardia Code(s): R00.1 - BRADYCARDIA, UNSPECIFIED Status: Acute Comment: ? subacute , off Coreg, evaluation for ICD upgrade per EP (8) CAD (coronary artery disease) Code(s): I25.10 - ATHSCL HEART DISEASE OF [place] CORONARY ARTERY W/O ANG PCTRS Status: Chronic Qualifiers: Coronary Disease-Associated Artery/Lesion type: [place] artery [place] vs. transplanted heart: [place] heart Associated angina: without angina Qualified Code(s): I25.10 - Atherosclerotic heart disease of [place] coronary artery without angina pectoris Comment: Continue ASA 325mg daily (9) HLD (hyperlipidemia) Code(s): E78.5 - HYPERLIPIDEMIA, UNSPECIFIED Status: Chronic Comment: Will hold statin another 48h then resume due to rhabdomyolysis (10) PVD (peripheral vascular disease) Code(s): I73.9 - PERIPHERAL VASCULAR DISEASE, UNSPECIFIED Status: Chronic - Plan continue antibiotics, PT/OT, adoption social worker, respiratory therapy Stable currently -: Continue Lasix 40mg BID -: EP for AICD upgrade -: Continue ASA 325mg daily -: Monitor I/O's and daily weight * AM lab: BMP, CBC * Transfer to Tele
[2017-01-03 17:46] LABS: Oxyhemoglobin 90.8 % (94.0-97.0); Sodium 142 mmol/L (135-148)
[2017-01-03 17:47] LABS: Mode 2LNC; Modified Allen's Test POSITIVE; Vent NO
[2017-01-04 05:16] LABS: Anion Gap 13 mmol/L (10-20); BUN (Urea Nitrogen) 38 mg/dL (9.8-20.1); Calc. Creatinine Clearance 53 mL/min (70-130); Calcium 8.8 mg/dL (7.8-10.44); Carbon Dioxide 32 mmol/L (23-31); Chloride 99 mmol/L (98-107); Estimated GFR-MDRD 51
[2017-01-04] MEDS: Furosemide 40 MG TAB PO SCH ×2 (06:12→14:32)
[2017-01-04] MEDS: clonazePAM 1 MG TAB PO SCH ×2 (10:33→20:32)
[2017-01-04] MEDS: Bupropion 150 MG SR TAB PO SCH ×2 (10:33→20:33)
[2017-01-04] MEDS: Aspirin 325 MG TAB PO SCH (10:33)
--- NOTE | 2017-01-04 11:48 | PDOC.PN ---
- Subjective Encounter Start Date: 01/04/17 Encounter Start Time: 11:30 Subjective: f/u for CHF, resp failure and ischemic cardiomyopathy. Overall feeling well -: No events overnight. Considering AICD upgrade to dual-chamber device. - Objective Resuscitation Status: Resuscitation Status DNR:Do Not Resuscitate MAR Reviewed: Yes Vital Signs & Weight: Vital Signs (12 hours) Temp Pulse Resp BP Pulse Ox 01/04/17 10:51 58 L 20 97 01/04/17 07:27 100 01/04/17 07:25 60 20 98 01/04/17 04:35 99 01/04/17 04:00 97.4 F L 64 20 158/73 H 100 01/04/17 01:54 60 18 100 01/04/17 00:00 97.8 F 56 L 16 143/77 H 99 Weight Admit Weight 157 lb 4.8 oz Weight 149 lb 11.2 oz I&O: 01/03/17 01/04/17 01/05/17 06:59 06:59 06:59 Intake Total 830 840 Output Total 1100 Balance -270 840 Result Diagrams: 01/02/17 03:56 01/04/17 04:45 EKG Reviewed by me: Yes (Tele - sinus liberty in 50's) Phys Exam - Physical Examination Constitutional: NAD alert, responsive HEENT: PERRLA, oral pharynx no lesions Neck: no JVD, supple few basilar crackles Cardiovascular: RRR Gastrointestinal: soft, non-tender, no distention, positive bowel sounds Musculoskeletal: pulses present Neurological: normal sensation, moves all 4 limbs Psychiatric: A&O x 3 Skin: normal turgor, cap refill <2 seconds Dx/Plan (1) Acute on chronic systolic (congestive) heart failure Code(s): I50.23 - ACUTE ON CHRONIC SYSTOLIC (CONGESTIVE) HEART FAILURE Status : Acute Comment: EF 10-15%, likely more chronic component with acute exacerbation, Lasix, EP evaluation for AICD upgrade (2) HERNESTO (acute kidney injury) Code(s): N17.9 - ACUTE KIDNEY FAILURE, UNSPECIFIED Status: Resolved Comment : Improved, continue supportive mgmt, hold Lisinopril another 24h (3) CKD (chronic kidney disease) stage 3, GFR 30-59 ml/min Code(s): N18.3 - CHRONIC KIDNEY DISEASE, STAGE 3 (MODERATE) Status: Chronic Comment: See #1 (4) Chronic hypoxemic respiratory failure Code(s): J96.11 - CHRONIC RESPIRATORY FAILURE WITH HYPOXIA Status: Chronic Comment: Baseline O2 requirements (5) Chronic systolic CHF (congestive heart failure) Code(s): I50.22 - CHRONIC SYSTOLIC (CONGESTIVE) HEART FAILURE Status: Chronic Comment: Resume Lasix 40mg BID (6) Rhabdomyolysis Code(s): M62.82 - RHABDOMYOLYSIS Status: Resolved Qualifiers: Rhabdomyolysis type: non-traumatic Qualified Code(s): M62.82 - Rhabdomyolysis Comment: Resolving (7) Bradycardia Code(s): R00.1 - BRADYCARDIA, UNSPECIFIED Status: Acute Comment: ? subacute , off Coreg, evaluation for ICD upgrade per EP (8) CAD (coronary artery disease) Code(s): I25.10 - ATHSCL HEART DISEASE OF [place] CORONARY ARTERY W/O ANG PCTRS Status: Chronic Qualifiers: Coronary Disease-Associated Artery/Lesion type: [place] artery [place] vs. transplanted heart: [place] heart Associated angina: without angina Qualified Code(s): I25.10 - Atherosclerotic heart disease of [place] coronary artery without angina pectoris Comment: Continue ASA 325mg daily (9) HLD (hyperlipidemia) Code(s): E78.5 - HYPERLIPIDEMIA, UNSPECIFIED Status: Chronic Comment: Will hold statin another 48h then resume due to rhabdomyolysis (10) PVD (peripheral vascular disease) Code(s): I73.9 - PERIPHERAL VASCULAR DISEASE, UNSPECIFIED Status: Chronic - Plan PT/OT, marriage and family social worker, respiratory therapy Stable overall -: EP re-eval for AICD upgrade to dual-chamber device -: Continue Lasix 40mg BID -: Continue Levaquin 250mg po daily -: Continue Solumedrol 40mg IV BID * Pt will consider hospice upon returning home and can discuss it with her scale manager * AM lab: BMP
--- NOTE | 2017-01-04 12:45 | PRG ---
DATE OF SERVICE: 01/04/2017 SUBJECTIVE: Verenice Davidson is awake, alert, and responsive. No shortness of breath. OBJECTIVE: VITAL SIGNS: Sats are 100% on 3 liters, temperature is 97, blood pressure 157/83. CHEST: Reveals no crackles or wheezing. CARDIAC: Normal S1 and S2. LABORATORY DATA: Creatinine 1.2. IMPRESSION: 1. Respiratory failure. 2. Congestive heart failure. 3. Renal failure. PLAN: Continue cardiac care. The patient apparently scheduled for cardiac intervention. We will follow while in the telemetry unit.
[2017-01-05] MEDS: Furosemide 40 MG TAB PO SCH ×2 (06:10→13:45)
[2017-01-05] MEDS: clonazePAM 1 MG TAB PO SCH ×2 (09:14→21:15)
[2017-01-05] MEDS: Bupropion 150 MG SR TAB PO SCH ×2 (09:15→21:15)
[2017-01-05] MEDS ORDERED: Gentamicin 80 MG/2 ML VIAL ONE (10:11)
[2017-01-05] MEDS ORDERED: CEFAZOLIN/Water 2 GM/20 ML SYRINGE ONE ×2 (10:11)
[2017-01-05] MEDS ORDERED: CEFAZOLIN 1 GM VIAL ONE (10:11)
[2017-01-05] MEDS ORDERED: Lidocaine 1% PF 5 ML VIAL ONE (10:14)
[2017-01-05] MEDS ORDERED: Propofol 200 MG/20 ML VIAL ONE (10:14)
[2017-01-05] MEDS ORDERED: Ondansetron HCl/PF 4 MG/2 ML Vial ONE (10:14)
[2017-01-05] MEDS ORDERED: Fentanyl 100 MCG/2 ML VIAL ONE (10:32)
[2017-01-05] MEDS ORDERED: traMADol HCl 50 MG TAB PO PRN (12:14)
[2017-01-05] MEDS ORDERED: diphenhydrAMINE 25 MG CAP PO PRN (12:14)
[2017-01-05] MEDS ORDERED: Acetaminophen 325 MG TAB PO PRN (12:14)
[2017-01-05] MEDS ORDERED: Ondansetron HCl/PF 4 MG/2 ML Vial IVP PRN (12:14)
[2017-01-05] MEDS ORDERED: Morphine PF 1 MG/ML SYR IVP PRN (12:16)
--- NOTE | 2017-01-05 12:23 | RAD ---
CHEST 1 VIEW: HISTORY: Defibrillator revision. FINDINGS: The cardiac silhouette is magnified and enlarged. Pulmonary vasculature is engorged. Mediastinum is midline with multilead left subclavian cardiac electronic device in place. Leads overlie the right atrium, right ventricle, and coronary sinus. There is no evidence of pneumothorax. equipment monitor phototypesetting leads overlie the chest. There is calcification in the arterial structures. IMPRESSION: 1. Left subclavian cardiac electronic device is in good radiographic position. 2. Cardiomegaly with pulmonary vascular congestion. 3. Atherosclerosis. POS: [facility]
--- NOTE | 2017-01-05 12:54 | PDOC.PN ---
- Subjective Encounter Start Date: 01/05/17 Encounter Start Time: 09:20 -: old records requested/rev Pt not seen by me for last three days. to laboratory engineer now for AICD upgrade to dual chamber pacing by Dr Baumann. Chart reviewed for last three days No F/C, no N/V/d/c, no CP or SOB at present, feels better and less weak. 10 point ROS performed and neg for all systems except as above - Objective Resuscitation Status: Resuscitation Status DNR:Do Not Resuscitate MAR Reviewed: Yes Vital Signs & Weight: Vital Signs (12 hours) Temp Pulse Resp BP Pulse Ox 01/05/17 08:11 100 01/05/17 08:09 62 20 01/05/17 07:25 62 16 177/86 H 01/05/17 04:00 97.5 F L 67 16 163/76 H 100 01/05/17 02:16 66 18 97 Weight Admit Weight 157 lb 4.8 oz Weight 152 lb 3.2 oz I&O: 01/04/17 01/05/17 01/06/17 06:59 06:59 06:59 Intake Total 840 Output Total 600 Balance 840 -600 Result Diagrams: 01/02/17 03:56 01/04/17 04:45 Radiology Reviewed by me: Yes EKG Reviewed by me: Yes Phys Exam - Physical Examination Constitutional: NAD HEENT: PERRLA, moist MMs, sclera anicteric, oral pharynx no lesions Neck: no nodes, no JVD, supple, full ROM Respiratory: no wheezing, no rhonchi bibasialr crackles stable Cardiovascular: RRR, no significant murmur, no rub liberty Gastrointestinal: soft, non-tender, no distention, positive bowel sounds Musculoskeletal: pulses present, edema present stump with edema as well Neurological: non-focal, normal sensation, moves all 4 limbs Lymphatic: no nodes Psychiatric: normal affect, A&O x 3 Skin: no rash, normal turgor, cap refill <2 seconds Dx/Plan (1) Chronic systolic CHF (congestive heart failure) Code(s): I50.22 - CHRONIC SYSTOLIC (CONGESTIVE) HEART FAILURE Status: Chronic Comment: Resume Lasix 40mg BID (2) Physical deconditioning Code(s): R53.81 - OTHER [place] Status: Acute Comment: from bradycardia (3) Moderate dehydration Code(s): E86.0 - DEHYDRATION Status: Resolved (4) CKD (chronic kidney disease) stage 3, GFR 30-59 ml/min Code(s): N18.3 - CHRONIC KIDNEY DISEASE, STAGE 3 (MODERATE) Status: Chronic Comment: See #1 (5) HERNESTO (acute kidney injury) Code(s): N17.9 - ACUTE KIDNEY FAILURE, UNSPECIFIED Status: Resolved Comment : Improved, continue supportive mgmt, hold Lisinopril another 24h (6) Rhabdomyolysis Code(s): M62.82 - RHABDOMYOLYSIS Status: Resolved Qualifiers: Rhabdomyolysis type: non-traumatic Qualified Code(s): M62.82 - Rhabdomyolysis Comment: Resolved (7) Chronic hypoxemic respiratory failure Code(s): J96.11 - CHRONIC RESPIRATORY FAILURE WITH HYPOXIA Status: Chronic Comment: Baseline O2 requirements (8) CAD (coronary artery disease) Code(s): I25.10 - ATHSCL HEART DISEASE OF [place] CORONARY ARTERY W/O ANG PCTRS Status: Chronic Qualifiers: Coronary Disease-Associated Artery/Lesion type: [place] artery [place] vs. transplanted heart: [place] heart Associated angina: without angina Qualified Code(s): I25.10 - Atherosclerotic heart disease of [place] coronary artery without angina pectoris Comment: Continue ASA 325mg daily (9) COPD (chronic obstructive pulmonary disease) Status: Chronic Comment: Continue Duonebs, inv steroids (10) HLD (hyperlipidemia) Code(s): E78.5 - HYPERLIPIDEMIA, UNSPECIFIED Status: Chronic Comment: Will hold statin another 48h then resume due to rhabdomyolysis - Plan * . follow up results of AICD upgrade. case discussed iwgenoveva Baumann, aniket well, no identified complications
[2017-01-05] MEDS: Aspirin 325 MG TAB PO SCH (13:45)
--- NOTE | 2017-01-05 14:40 | PDOC.CTH ---
<Yamini Cottrell - Last Filed: 01/05/17 14:53> Cardiology Progress Note - Subjective the pt seen and examined. No overnight events. No cardiac complaints. S/p AICD upgrade to dual chamber AICD today. She complains of very light discomfort at the procedure site. - Objective Vital Signs Temp Pulse Resp BP Pulse Ox 01/05/17 08:11 100 01/05/17 08:09 62 20 01/05/17 07:25 62 16 177/86 H 01/05/17 04:00 97.5 F L 67 16 163/76 H 100 Admit Weight 157 lb 4.8 oz Weight 152 lb 3.2 oz 01/04/17 01/05/17 01/06/17 06:59 06:59 06:59 Intake Total 840 120 Output Total 600 450 Balance 840 -600 -330 - Physical Examination General/Neuro: alert & oriented x3 Neck: no JVD present Lungs: other: (coases and diminished at bases) Heart: RRR Abdomen: soft Extremities: other: (Lt AKA; no edema in RLE) - Labs Result Diagrams: 01/02/17 03:56 01/04/17 04:45 Troponin/CKMB CK-MB (CK-2) 1.7 ng/mL (0-6.6) 12/30/16 12:32 Troponin I 0.092 ng/mL (< 0.028) H 12/30/16 17:44 - Assessment/Plan 1. Chronic systolic HF with EF 15% and S/p AICD placement - s/p AICD upgrade to dual chamber pacing by Dr Baumann today; The site is clean with dry Dressing; on Lasix 40mg PO BID; 2. mild CAD - on ASA and BBlocker; cont. monitor on tele 3. HTN - Start Coreg 12.5mg BID; cont. monitor 4. CKD stage 3 - stable; no VINICIUS at this moment; 5. Hyperlipidemia - LDL on 12/30 was 76; no on Statin med 6. UTI - on Antibiotic IV meds; managed by PCP 7. COPD - on Duonebs and inv steroids; managed by PCP 8. PVD with hx of [place] reviewed Review of Systems - Review of Systems Constitutional: reports: no symptoms reported EENTM: reports: no symptoms reported Respiratory: reports: no symptoms reported Cardiac (ROS): reports: no symptoms reported ABD/GI: reports: no symptoms reported : reports: no symptoms reported Musculoskeletal: reports: no symptoms reported <Tawnya Blackwell - Last Filed: 01/05/17 15:19> Cardiology Progress Note - Objective Vital Signs Temp Pulse Resp BP Pulse Ox 01/05/17 15:00 76 16 01/05/17 08:11 100 01/05/17 08:09 62 20 01/05/17 07:25 62 16 177/86 H 01/05/17 04:00 97.5 F L 67 16 163/76 H 100 Admit Weight 157 lb 4.8 oz Weight 152 lb 3.2 oz 01/04/17 01/05/17 01/06/17 06:59 06:59 06:59 Intake Total 840 120 Output Total 600 450 Balance 840 -600 -330 - Labs Result Diagrams: 01/02/17 03:56 01/04/17 04:45 Troponin/CKMB CK-MB (CK-2) 1.7 ng/mL (0-6.6) 12/30/16 12:32 Troponin I 0.092 ng/mL (< 0.028) H 12/30/16 17:44 - Assessment/Plan Pt. seen and eval. by me. Back from labor employment associate after new AICD. No complaints. I agree with the A/P by the SPECIAL EDUCATION SCIENCE TEACHER. Resume coreg.
[2017-01-05] MEDS ORDERED: Iopamidol 370 76% 50 ML VIAL FS ONE (17:19)
[2017-01-05] MEDS: Carvedilol 6.25 MG TAB PO SCH (18:10)
[2017-01-05] MEDS: CEFAZOLIN 1 GM, Syringe 2.5 ML in Sterile Water 7.5 ML SLOW IVP SCH (18:11)
--- NOTE | 2017-01-06 00:01 | PRG ---
DATE OF SERVICE: 01/05/2017 SUBJECTIVE: The patient was seen today. She is doing well status post pacemaker insertion. OBJECTIVE: VITAL SIGNS: Temperature 97, 97% on room air, pulse 67, blood pressure 160/76. CHEST: Decreased breath sounds, no wheezing. CARDIAC: Normal S1, S2. No gallops. ABDOMEN: Soft. No masses. LABORATORY AND X-RAY FINDINGS: Chest x-ray postprocedure shows significant encephalization, increase d markings, cardiomegaly. IMPRESSION: 1. Respiratory failure. 2. Congestive heart failure. PLAN: 1. Continue neb treatments, supportive care. 2. Discontinue steroids, discontinue morphine. 3. We will follow.
[2017-01-06] MEDS: CEFAZOLIN 1 GM, Syringe 2.5 ML in Sterile Water 7.5 ML SLOW IVP SCH ×2 (02:27→10:04)
[2017-01-06 04:54] LABS: #Lymphocytes 0.8 thou/uL (1.20-3.40); #Monocytes 0.5 thou/uL (0.11-0.59); #Neutrophils 8.4 thou/uL (1.40-6.50); %Basophils 0.2 % (0.0-1.0); %Eosinophils 0.1 % (0.0-10.0); %Lymphocytes 8.2 % (21.0-51.0); %Monocytes 5.5 % (0.0-10.0); Hematocrit 42.7 % (36.0-47.0); Mean Platelet Volume 9.6 fL (7.4-10.4); Red Blood Cell (RBC) Count 4.18 mill/uL (4.20-5.40); White Blood Cell (WBC) Count 9.8 thou/uL (4.8-10.8)
[2017-01-06 05:02] LABS: Anion Gap 13 mmol/L (10-20); BUN (Urea Nitrogen) 35 mg/dL (9.8-20.1); Calc. Creatinine Clearance 49 mL/min (70-130); Carbon Dioxide 33 mmol/L (23-31); Chloride 99 mmol/L (98-107); Estimated GFR-MDRD 51
[2017-01-06] MEDS: Furosemide 40 MG TAB PO SCH ×2 (05:23→15:00)
[2017-01-06] MEDS: Carvedilol 6.25 MG TAB PO SCH ×2 (09:51→18:10)
[2017-01-06] MEDS: Bupropion 150 MG SR TAB PO SCH ×2 (09:51→21:55)
[2017-01-06] MEDS: Aspirin 325 MG TAB PO SCH (09:52)
[2017-01-06] MEDS: clonazePAM 1 MG TAB PO SCH ×2 (09:52→21:56)
--- NOTE | 2017-01-06 10:30 | RAD ---
CHEST 2 VIEWS: Date: 01/06/17 HISTORY: Post pacemaker placement. COMPARISON: 11/30/11 exam and 01/05/17 study. FINDINGS: Heart size is enlarged. Internal defibrillator device is present. I do not see any signs of pneumotho rax. IMPRESSION: 1. Cardiomegaly. 2. No evidence of pneumothorax. POS: [facility]
[2017-01-06] MEDS ORDERED: Furosemide 40 MG/4 ML VIAL SLOW IVP SCH (10:45)
[2017-01-06] MEDS ORDERED: Lisinopril 20 MG TAB PO SCH (10:45)
--- NOTE | 2017-01-06 16:46 | PDOC.PN ---
- Subjective Encounter Start Date: 01/06/17 Encounter Start Time: 16:43 Patient seen and examined. No new complaints. No overnight events - Objective Resuscitation Status: Resuscitation Status DNR:Do Not Resuscitate MAR Reviewed: Yes Vital Signs & Weight: Vital Signs (12 hours) Temp Pulse Pulse Pulse Resp BP BP 01/06/17 15:07 67 18 01/06/17 14:51 66 67 166/105 H 01/06/17 14:08 01/06/17 14:07 67 15 01/06/17 11:37 97.7 F 71 17 01/06/17 09:51 170/95 H 01/06/17 08:00 97.6 F 65 16 01/06/17 07:33 01/06/17 07:32 65 16 01/06/17 07:10 97.6 F 68 18 BP BP Pulse Ox Pulse Ox Pulse Ox 01/06/17 15:07 134/85 93 L 01/06/17 14:51 134/85 91 L 93 L 01/06/17 14:08 98 01/06/17 14:07 98 01/06/17 11:37 164/85 H 90 L 01/06/17 09:51 01/06/17 08:00 99 01/06/17 07:33 99 01/06/17 07:32 99 01/06/17 07:10 170/95 H 99 Weight Admit Weight 157 lb 4.8 oz Weight 166 lb 12.8 oz I&O: 01/05/17 01/06/17 01/07/17 06:59 06:59 06:59 Intake Total 1260 Output Total 600 2025 Balance -600 -765 Result Diagrams: 01/06/17 04:42 01/06/17 04:42 Phys Exam - Physical Examination Constitutional: NAD HEENT: PERRLA Neck: no JVD Respiratory: no wheezing Cardiovascular: no significant murmur Gastrointestinal: non-tender, no distention Musculoskeletal: pulses present Neurological: moves all 4 limbs Psychiatric: A&O x 3 Dx/Plan (1) Physical deconditioning Code(s): R53.81 - OTHER MALAISE Status: Acute Comment: from bradycardia (2) CKD (chronic kidney disease) stage 3, GFR 30-59 ml/min Code(s): N18.3 - CHRONIC KIDNEY DISEASE, STAGE 3 (MODERATE) Status: Chronic Comment: See #1 (3) Chronic hypoxemic respiratory failure Code(s): J96.11 - CHRONIC RESPIRATORY FAILURE WITH HYPOXIA Status: Chronic Comment: Baseline O2 requirements (4) Acute on chronic systolic (congestive) heart failure Code(s): I50.23 - ACUTE ON CHRONIC SYSTOLIC (CONGESTIVE) HEART FAILURE Status : Acute Comment: EF 10-15%, likely more chronic component with acute exacerbation, Lasix, EP evaluation for AICD upgrade (5) CAD (coronary artery disease) Code(s): I25.10 - ATHSCL HEART DISEASE OF [place] CORONARY ARTERY W/O ANG PCTRS Status: Chronic Qualifiers: Coronary Disease-Associated Artery/Lesion type: [place] artery [place] vs. transplanted heart: [place] heart Associated angina: without angina Qualified Code(s): I25.10 - Atherosclerotic heart disease of [place] coronary artery without angina pectoris Comment: Continue ASA 325mg daily (6) HLD (hyperlipidemia) Code(s): E78.5 - HYPERLIPIDEMIA, UNSPECIFIED Status: Chronic Comment: Will hold statin another 48h then resume due to rhabdomyolysis (7) HTN (hypertension) Code(s): I10 - ESSENTIAL (PRIMARY) HYPERTENSION Status: Chronic Qualifiers: - Plan * 1. Chronic systolic HF with EF 15% and S/p AICD placement - s/p AICD upgrade to dual chamber pacing by Dr Baumann today; The site is clean with dry Dressing; on Lasix 40mg PO BID; 2. mild CAD - on ASA and BBlocker; cont. monitor on tele 3. HTN - Start Coreg 12.5mg BID; cont. monitor 4. CKD stage 3 - stable; no VINICIUS at this moment; 5. Hyperlipidemia - LDL on 12/30 was 76; no on Statin med 6. UTI - on Antibiotic IV meds 7. COPD - on Duonebs and inv steroids 8. PVD with hx of AMARI ACUÑA
--- NOTE | 2017-01-06 16:59 | PRG ---
DATE OF SERVICE: 01/06/2017 SUBJECTIVE: This morning, she denies any shortness of breath. OBJECTIVE: VITAL SIGNS: Blood pressure 170/95, sats are 99% on 3 liters, respirations are 18 and temperature 97 . CHEST: No wheezing. CARDIAC: Normal S1 and S2. ABDOMEN: Soft. No masses. IMPRESSION: 1. Status post respiratory failure, congestive heart failure. 2. Chronic obstructive pulmonary disease. 3. Bradycardia, status post pacemaker. PLAN: Her x-ray looks normal this morning. No acute infiltrates seen. We will switch over to oral prednisone. We will follow.
[2017-01-06] MEDS: Cefadroxil Hydrate 500 mg/5 ml Suspenion PO SCH (21:56)
[2017-01-07] MEDS: Furosemide 40 MG TAB PO SCH ×2 (05:50→13:28)
[2017-01-07] MEDS: Carvedilol 6.25 MG TAB PO SCH ×2 (08:58→17:35)
[2017-01-07] MEDS: Lisinopril 20 MG TAB PO SCH (08:58)
[2017-01-07] MEDS: predniSONE 20 MG TAB PO SCH (08:58)
[2017-01-07] MEDS: Bupropion 150 MG SR TAB PO SCH ×2 (08:59→20:19)
[2017-01-07] MEDS: clonazePAM 1 MG TAB PO SCH ×2 (08:59→20:19)
[2017-01-07] MEDS: Aspirin 325 MG TAB PO SCH (08:59)
[2017-01-07] MEDS: Cefadroxil Hydrate 500 mg/5 ml Suspenion PO SCH ×2 (08:59→20:20)
--- NOTE | 2017-01-07 12:56 | PRG ---
DATE OF SERVICE: 01/07/2017 SUBJECTIVE: This morning, she is doing better, less short of breath. She is unable to walk because of amputation of the leg. OBJECTIVE: VITAL SIGNS: Have been stable, blood pressure 130/73, temperature 97, respirations 18, sats are 96% on 1 liter. CHEST: Bilateral crackles, without any wheezing. CARDIAC: Normal S1, S2. No gallops. ABDOMEN: Soft, no masses. IMPRESSION: Congestive heart failure, status post pacemaker, respiratory failure, improved. PLAN: Continue empiric antibiotics. Low dose prednisone. Decision as per Cardiology.
--- NOTE | 2017-01-07 15:10 | PRG ---
DATE OF SERVICE: 01/07/2017 SUBJECTIVE: Ms. Davidson is feeling fine, awake, alert, no complaints. PHYSICAL EXAMINATION: VITAL SIGNS: Blood pressure 130/73, pulse is 60. LUNGS: Clear. CARDIAC: Normal S1, normal S2. ASSESSMENT: Congestive heart failure, status post upgrade of her pacemaker to defibrillator, plan to home anytime.
--- NOTE | 2017-01-07 16:14 | PDOC.PN ---
- Subjective Encounter Start Date: 01/07/17 Encounter Start Time: 16:13 Patient seen and examined. No new complaints. No overnight events - Objective Resuscitation Status: Resuscitation Status DNR:Do Not Resuscitate MAR Reviewed: Yes Vital Signs & Weight: Vital Signs (12 hours) Temp Pulse Resp BP BP Pulse Ox 01/07/17 14:06 61 16 96 01/07/17 08:58 138/73 01/07/17 07:25 60 20 95 01/07/17 07:10 97.4 F L 60 18 138/73 95 Weight Admit Weight 157 lb 4.8 oz Weight 145 lb 12.8 oz I&O: 01/06/17 01/07/17 01/08/17 06:59 06:59 06:59 Intake Total 1260 920 Output Total 2024 950 Balance -765 -30 Result Diagrams: 01/06/17 04:42 01/06/17 04:42 Phys Exam - Physical Examination Constitutional: NAD HEENT: PERRLA Neck: no JVD Respiratory: no wheezing Cardiovascular: no significant murmur Gastrointestinal: non-tender Musculoskeletal: pulses present Neurological: moves all 4 limbs Psychiatric: A&O x 3 Dx/Plan (1) Physical deconditioning Code(s): R53.81 - OTHER MALAISE Status: Acute Comment: from bradycardia (2) CKD (chronic kidney disease) stage 3, GFR 30-59 ml/min Code(s): N18.3 - CHRONIC KIDNEY DISEASE, STAGE 3 (MODERATE) Status: Chronic Comment: See #1 (3) Chronic hypoxemic respiratory failure Code(s): J96.11 - CHRONIC RESPIRATORY FAILURE WITH HYPOXIA Status: Chronic Comment: Baseline O2 requirements (4) Acute on chronic systolic (congestive) heart failure Code(s): I50.23 - ACUTE ON CHRONIC SYSTOLIC (CONGESTIVE) HEART FAILURE Status : Acute Comment: EF 10-15%, likely more chronic component with acute exacerbation, Lasix, EP evaluation for AICD upgrade (5) CAD (coronary artery disease) Code(s): I25.10 - ATHSCL HEART DISEASE OF [place] CORONARY ARTERY W/O ANG PCTRS Status: Chronic Qualifiers: Coronary Disease-Associated Artery/Lesion type: [place] artery [place] vs. transplanted heart: [place] heart Associated angina: without angina Qualified Code(s): I25.10 - Atherosclerotic heart disease of [place] coronary artery without angina pectoris Comment: Continue ASA 325mg daily (6) HLD (hyperlipidemia) Code(s): E78.5 - HYPERLIPIDEMIA, UNSPECIFIED Status: Chronic Comment: Will hold statin another 48h then resume due to rhabdomyolysis (7) HTN (hypertension) Code(s): I10 - ESSENTIAL (PRIMARY) HYPERTENSION Status: Chronic Qualifiers: - Plan * continue current mx * f/u card plan
[2017-01-08] MEDS: Furosemide 40 MG TAB PO SCH (05:05)
[2017-01-08 08:59] LABS: Anion Gap 14 mmol/L (10-20); BUN (Urea Nitrogen) 41 mg/dL (9.8-20.1); Calc. Creatinine Clearance 49 mL/min (70-130); Calcium 9.4 mg/dL (7.8-10.44); Carbon Dioxide 34 mmol/L (23-31); Chloride 95 mmol/L (98-107); Estimated GFR-MDRD 53
[2017-01-08] MEDS ORDERED: Digoxin 0.125 MG TAB PO SCH (09:00)
[2017-01-08] MEDS: Bupropion 150 MG SR TAB PO SCH (09:05)
[2017-01-08] MEDS: Carvedilol 6.25 MG TAB PO SCH (09:05)
[2017-01-08] MEDS: clonazePAM 1 MG TAB PO SCH (09:06)
[2017-01-08] MEDS: Lisinopril 20 MG TAB PO SCH (09:06)
[2017-01-08] MEDS: predniSONE 20 MG TAB PO SCH (09:06)
[2017-01-08] MEDS: Aspirin 325 MG TAB PO SCH (09:06)
[2017-01-08] MEDS: Cefadroxil Hydrate 500 mg/5 ml Suspenion PO SCH (09:07)
--- NOTE | 2017-01-08 10:56 | PRG ---
DATE OF SERVICE: 01/08/2017 SUBJECTIVE: She is in a wheelchair, ambulating. PHYSICAL EXAMINATION: VITAL SIGNS: Blood pressure 144/92, pulse 70, sats 92 on 1 liter. CHEST: Chest reveals decreased breath sounds, no wheezing. CARDIAC: Normal S1, S2. Creatinine 1.24. On examination she denies any difficulty breathing. CHEST: Chest reveals decreased breath sounds, no wheezing. CARDIAC: Normal S1, S2. ABDOMEN: Soft, no masses. IMPRESSION: 1. Status post pacemaker for bradycardia. 2. Congestive heart failure 3. Possible pneumonia/bronchitis. PLAN: Continue antibiotics. Discontinue prednisone after 2 days. She can be discharged home anytime. I will follow at a distance.
[2017-01-08 12:17] VITALS: BP 145/82; TEMP 97.5
--- NOTE | 2017-01-08 19:36 | DIS ---
DATE OF ADMISSION: 12/30/2016 DATE OF DISCHARGE: 01/08/2017 PRIMARY CARE PHYSICIAN: Listed as Nic Shah M.D. at [facility]. DISCHARGE DIAGNOSES: 1. Symptomatic bradycardia. 2. Chronic systolic congestive heart failure. 3. Ischemic cardiomyopathy. 4. Chronic kidney disease stage 3. 5. Chronic hypoxemic respiratory failure. 6. Acute on chronic systolic congestive heart failure. 7. History of coronary artery disease, without angina. 8. Hyperlipidemia. 9. Hypertension. CONSULTATIONS: 1. Cardiology, Dr. Walt Frank. 2. Pulmonary, Dr. Damian Conti. 3. Electrophysiology, Dr. John Hartley. PROCEDURES: None. HISTORY AND PHYSICAL: Ms. Davidson is a 61-year-old -[place] female whom I admitted from the emergency department initially on observation for what was built as left greater than right weakness. On evaluation, the patient seemed to be equally weak all over. She was found to be slightly hypotens sotero and looked to be dehydrated based on lab work. She had increased creatinine and BUN with creatin ine ratio greater than 20:1 and felt lethargic. She was started on IV fluid gently overnight and was placed in observation. Overnight 12/30/2016 to 12/31/2016, patient felt somewhat better, but certainly did not feel wanted t o go home. Her blood pressure remained stable. She still felt weak. Denied dysuria, nausea, vomiti ng, diarrhea, constipation. No chest pain. Creatinine improved from 2.5 down to 1.99. BUN improved down to 52. Blood counts remained stable. Lasix and VINICIUS inhibitor and statin were continued to be held. CK improved. Imaging negative for acute cerebrovascular incident. Pacer interrogation reques kulwant as she was found to have bradycardia down high 30s and low 40s. By 01/01/2017, Cardiology saw the patient. Requested EP evaluation. No further workup was recommend ed. By 01/02/2017, Dr. Zuñiga took over as I was off for a few days. He noted the patient was feeling somewhat better. EP evaluation was pending for possible ICD upgrade to dual-chamber device and the patient was continued on aspirin. On 01/03/2017, the was called to evaluate the patient for increased respiratory rate and patien t was noted to have a prolonged expiratory phase and bibasilar rales. She was placed on BiPAP and tr ansferred to the [facility]. She was seen later that morning by Dr. Hartley with Electrophysiology. He recommended upgrade of her single chamber ICD to a cardiac resynchronization therapy with a dual-c hamber device, but they recommended that do it when she was in more stable respiratory status. In [facility], she was seen by Dr. Conti who started on diuretics and continued BiPAP. The patient remained stable and improving in respiratory status with good urine output. On 01/05/2017, the patient was going to the catheter builder immediately after I saw her for her pacemaker up grade. The procedure was without difficulty and she was transferred back to the floor postoperative. By 01/06/2017, her heart rate was stable in the 60s and down to 30s. She was feeling somewhat strong er and improving. Her creatinine remained in the normal level and she was watched over the weekend, 01/06/2017 to 01/08/2017. By today, she is feeling back to her baseline. She was stable for dischar with outpatient followup. Due to lack of insurance, she was not able to get any rehabilitation or get home healthcare services. PHYSICAL EXAMINATION: The patient was seen and examined on the day of discharge. Discharge plan and disposition was discussed with the patient face to face at the bedside. DISCHARGE MEDICATIONS: 1. Tessalon 100 mg p.o. t.i.d. p.r.n. 2. Bupropion SR 150 mg p.o. b.i.d. 3. Carvedilol 12.5 mg p.o. b.i.d. 4. Cefadroxil 500 mg p.o. b.i.d. for 5 more days. 5. Klonopin 1 mg p.o. b.i.d. 6. Digoxin 0.125 mg p.o. daily. 7. Docusate p.r.n. 8. Lasix 40 mg p.o. b.i.d. 9. Isosorbide mononitrate 30 mg p.o. daily. 10. Zestril 20 mg p.o. daily. 11. Potassium 40 mEq daily. FOLLOWUP APPOINTMENTS: 1. Primary care physician within a week. 2. Cardiology with electrophysiology in a week with Dr. Borja for suture removal. 3. Hose Tender as scheduled. DISCHARGE ACTIVITY: Per cardiopulmonary limits and was placed on her amputation. DISCHARGE DIET: Heart healthy, diabetic. DISCHARGE INSTRUCTIONS: To follow with primary doctor or Cardiology with chest pain or difficulty br eathing, or to return to the nearest ER if she is in extremis.
--- NOTE | 2017-01-18 06:25 | CCL ---
DATE OF PROCEDURE: 01/05/2017 PREOPERATIVE DIAGNOSES: 1. Chronic ischemic cardiomyopathy (ejection fraction 10% to 15%). 2. History of class 3 congestive heart failure with left bundle branch block and ventricular dyssync hrony. 3. History of nonsustained ventricular tachycardia. 4. Remote history of single chamber ICD on 11/29/2011. POSTOPERATIVE DIAGNOSIS: Inducible ventricular tachycardia/ventricular fibrillation (correctly detec kulwant and terminated by Medtronic [id number], implantable cardioverter defibrillator generator with new ri ght atrial pacing lead, old right ventricular transvenous defibrillator lead, and new left ventricula r pacing lead; upgrade single chamber implantable cardioverter-defibrillator to atrial biventricular implantable cardioverter-defibrillator). PROCEDURES: 1. Electrophysiologic study (defibrillation threshold testing) during ICD implantation/upgrade. 2. Implantation of atrio-biventricular non-thoracotomy ICD generator with new right atrial pacing le ad, old right ventricular transvenous defibrillator lead, and new left ventricular pacing lead. Gene rator: Medtronic [id number] serial number [id number]. Atrial pacemaker lead: Medtronic 5076-45, seria l number [id number]. Transvenous defibrillator lead: Medtronic 6947-58, serial number [id number] (i mplanted 11/29/2011). Left ventricular lead: Medtronic 4598-88, serial number [id number]. 3. Explantation of implantable cardioverter defibrillator generator. Generator: Medtronic [id number], serial number [id number] (implanted 11/29/2011). COMPLICATIONS: None. DESCRIPTION OF PROCEDURE: This patient was brought to the Cardiac electrophysiology lab in a nonseda kulwant and post-absorptive state. The left chest area was prepped and sterile drapes applied. Lidocain e 1% was utilized for local infiltration. Sedation was provided by the Department of Anesthesiology. An incision was made above the old ICD generator. The generator was explanted and leads examined. The old right ventricular transvenous defibrillator lead had the following thresholds and measuremen ts: Bipolar tip negative 0.5 millisecond pulse width, 0.7 volts, 1.4 mA, 487 ohms, 10.7 millivolts. The left subclavian vein was cannulated with a peel-away introducer for introduction of the new righ t atrial pacing lead and a second venapuncture utilized for the left ventricular lead. The atrial le ad was positioned in the right atrium with thresholds and measurements as follows: Bipolar tip negat soteor 0.5 millisecond pulse width, 0.5 volts, 0.7 mA, 671 ohms, 4.0 millivolts. The coronary sinus was cannulated and was visualized with contrast. A pulmonary artery catheter and Terumo Glidewire were utilized. The left ventricular lead was placed in a posterolateral cardiac vein. The left ventricul ar thresholds and measurements were as follows: Bipolar tip negative 0.5 milliseconds pulse width, 1 .0 volts, 1.5 mA, 773 ohms, 18.7 millivolts. Ventricular fibrillation was induced utilizing a T-shoc k method. Ventricular fibrillation was successfully terminated with energy level of 20.0 joules with lead impedance of 48 ohms. All defibrillation was biphasic. The generator leads were secured in th e pocket with 0 Ethibond. Subsequent layers were closed with 2 layers of 2-0 PDS followed by subcuti cular 5-0 PDS. A sterile bandage was applied and the patient returned to [facility] bed in stable condi tion. IMPRESSION: Inducible ventricular tachycardia/ventricular fibrillation (correctly detected and termi nated by Medtronic [id number] atrial biventricular ICD generator with new right atrial pacing lead, old right ventricular transvenous defibrillator lead, and new left ventricular pacing lead; upgrade singl e chamber implantable cardioverter-defibrillator to atrial biventricular implantable cardioverter-def ibrillator). DISPOSITION: This patient has received nonpharmacologic therapy for the risk of ventricular tachyarr hythmia and recent congestive heart failure symptoms. She will follow up in electrophysiology clinic in approximately 2-3 weeks. POS: JOAQUIN
== END 2017-01-08 13:22 | disposition home health service (06) | DRG 226 ==
LOC: ERS 11:55 → OBSVTOIN 16:02 → 2SE 16:02 → IMCU/EMU 01-03 08:48 → 2NO 01-03 22:12
PROVIDERS: ADMIT Internal Medicine Infectious Disease; ATTEND Internal Medicine Infectious Disease
PROC: 5A09357 Assistance with Respiratory Ventilation, Less than 24 Consecutive Hours, Continuous Positive Airway Pressure (ICD-10-PCS; 2017-01-03)
PROC: 0JH609Z Insertion of Cardiac Resynchronization Defibrillator Pulse Generator into Chest Subcutaneous Tissue and Fascia, Open Approach (ICD-10-PCS; principal; 2017-01-05)
PROC: 02H43KZ Insertion of Defibrillator Lead into Coronary Vein, Percutaneous Approach (ICD-10-PCS; 2017-01-05)
PROC: 02H63KZ Insertion of Defibrillator Lead into Right Atrium, Percutaneous Approach (ICD-10-PCS; 2017-01-05)
PROC: 0JPT0PZ Removal of Cardiac Rhythm Related Device from Trunk Subcutaneous Tissue and Fascia, Open Approach (ICD-10-PCS; 2017-01-05)
DX: I13.0 Hypertensive heart and chronic kidney disease with heart failure and stage 1 through stage 4 chronic kidney disease, or unspecified chronic kidney disease (principal); I50.23 Acute on chronic systolic (congestive) heart failure; G93.40 Encephalopathy, unspecified; I47.2 Ventricular tachycardia; N17.9 Acute kidney failure, unspecified; I95.9 Hypotension, unspecified; J96.11 Chronic respiratory failure with hypoxia; N18.3 Chronic kidney disease, stage 3 (moderate); M62.82 Rhabdomyolysis; J44.1 Chronic obstructive pulmonary disease with (acute) exacerbation; N39.0 Urinary tract infection, site not specified; I25.5 Ischemic cardiomyopathy; E86.0 Dehydration; Z89.612 Acquired absence of left leg above knee; I73.9 Peripheral vascular disease, unspecified; R00.1 Bradycardia, unspecified; I25.10 Atherosclerotic heart disease of native coronary artery without angina pectoris; Z66 Do not resuscitate; E66.9 Obesity, unspecified; I44.7 Left bundle-branch block, unspecified; Z91.19 Patient's noncompliance with other medical treatment and regimen; I34.0 Nonrheumatic mitral (valve) insufficiency; F17.210 Nicotine dependence, cigarettes, uncomplicated; E78.00 Pure hypercholesterolemia, unspecified; F41.9 Anxiety disorder, unspecified; Z95.810 Presence of automatic (implantable) cardiac defibrillator
CPT/HCPCS: 33214; 33224; 36415; 51701; 70450; 71010; 71020; 80048; 80053; 80061; 80069; 80162; 81001; 81003; 81015; 82550; 82553; 82805; 83735; 84484; 85025; 85060; 85610; 85730; 93005; 93306; 93641; 94640; 94660; 96361; 96365; A4216; A4353; C1769; C1882; C1898; C1900; G8978-GP-CM; G8979-GP-CK; G8987-GO-CJ; G8988-GO-CI; G8996-GN-CI; G8997-GN-CI; G9162-GN-CJ; G9163-GN-CI; J0690; J0744; J1580; J1650; J1940; J2001; J2270; J2405; J2704; J2920; J3010; J7506; J7620; Q0162

== ENCOUNTER 2017-01-12 17:02 | Emergency (ER) | payer SELFPAY ==
[2017-01-12 18:01] LABS: Bilirubin Negative (Negative); Blood, Urine Moderate (Negative); Glucose, Urine (Dipstick) Negative (Negative); Ketone, Urine Negative (Negative); Nitrite Negative (Negative); Protein, Urine (Dipstick) Negative (Neg-Trace)
[2017-01-12 18:03] LABS: Bacteria/HPF None Seen HPF (None Seen); Squamous Epithelial 0-3 HPF (0-3); WBC/HPF 0-3 HPF (0-3)
[2017-01-12 18:13] LABS: Hyaline Casts/LPF 0-3 HYALINE CAST LPF (0-3 Hyaline)
[2017-01-12 18:24] LABS: #Basophils 0.1 thou/uL (0.0-0.2); #Lymphocytes 1.4 thou/uL (1.20-3.40); #Monocytes 0.5 thou/uL (0.11-0.59); %Basophils 2.8 % (0.0-1.0); %Eosinophils 1.2 % (0.0-10.0); %Lymphocytes 33.8 % (21.0-51.0); Hematocrit 44.8 % (36.0-47.0); Mean Platelet Volume 9.3 fL (7.4-10.4); Red Blood Cell (RBC) Count 4.44 mill/uL (4.20-5.40)
[2017-01-12 18:38] LABS: ALT (SGPT) 21 U/L (8-55); AST (SGOT) 39 U/L (5-34); Alkaline Phosphatase 104 U/L (40-150); Anion Gap 15 mmol/L (10-20); BUN (Urea Nitrogen) 37 mg/dL (9.8-20.1); Calc. Creatinine Clearance 0 mL/min (70-130); Calcium 8.6 mg/dL (7.8-10.44); Carbon Dioxide 21 mmol/L (23-31); Chloride 108 mmol/L (98-107); Estimated GFR-MDRD 28; Globulin 3.9 g/dL (2.4-3.5)
--- NOTE | 2017-01-12 18:48 | RAD ---
CHEST ONE VIEW 01/12/17 HISTORY: Hypotension. COMPARISON: 01/06/17. FINDINGS: Cardiac silhouette is magnified by projection. Pulmonary vasculature is unremarkable. Patient is rota kulwant rightward. Minimal linear atelectasis projects over the right base. Mediastinum is midline with a multilead left subclavian cardiac electronic device. No lobar consolidation or pneumothorax are appa rent. IMPRESSION: Chronic type findings are stable. No active cardiopulmonary abnormalities are demonstrated. POS: [facility]
[2017-01-12] MEDS ORDERED: Acetaminophen 325 MG TAB ONE (20:00)
--- NOTE | 2017-01-12 20:57 | ULT ---
RIGHT LOWER EXTREMITY VENOUS DUPLEX SONOGRAM: 01/12/17 Right leg pain and edema. FINDINGS: The right common femoral vein and greater saphenous junction evaluated along with the femoral, deep f emoral, popliteal, and posterior tibial veins. There is good color and spectral doppler flow, brittany cat and augmentation. IMPRESSION: No sonographic evidence of DVT within the right lower extremity. POS: [facility]
== END 2017-01-12 21:06 | disposition home or self-care (01) ==
LOC: ERS 17:02
DX: R53.1 Weakness (principal); I11.0 Hypertensive heart disease with heart failure; I50.9 Heart failure, unspecified; I25.10 Atherosclerotic heart disease of native coronary artery without angina pectoris; E78.5 Hyperlipidemia, unspecified; J44.9 Chronic obstructive pulmonary disease, unspecified; F17.210 Nicotine dependence, cigarettes, uncomplicated; F31.9 Bipolar disorder, unspecified; E66.9 Obesity, unspecified; I73.9 Peripheral vascular disease, unspecified; Z79.82 Long term (current) use of aspirin; Z79.899 Other long term (current) drug therapy
CPT/HCPCS: 36415; 51701; 71010; 80053; 81003; 81015; 85025; 93005; 93010; 96360; A4353

== ENCOUNTER 2017-01-14 20:41 | Observation (INO) | payer OTHER, SELFPAY ==
[2017-01-14 22:15] LABS: Troponin I 0.107 ng/mL (< 0.028)
[2017-01-15] MEDS ORDERED: Acetaminophen 500 MG TAB ONE (01:11)
[2017-01-15] MEDS ORDERED: Ondansetron ODT 4 MG TAB SL PRN (02:48)
[2017-01-15] MEDS ORDERED: Ondansetron HCl/PF 4 MG/2 ML Vial IVP PRN (02:48)
[2017-01-15] MEDS ORDERED: Acetaminophen 325 MG TAB PO PRN ×2 (02:48→02:54)
[2017-01-15] MEDS ORDERED: HYDROcodone/Acetaminophen 5/325 mg Tablet PO PRN (02:54)
[2017-01-15] MEDS ORDERED: HYDROcodone/Acetaminophen 10/325 mg Tablet PO PRN (02:54)
[2017-01-15] MEDS ORDERED: Ondansetron ODT 4 MG TAB PO PRN (02:54)
[2017-01-15 02:57] VITALS: BMI 23.6
[2017-01-15] MEDS: Sodium Chloride 0.9% 1,000 ML IV SCH ×3 (03:27→22:05)
[2017-01-15 05:11] LABS: Anion Gap 13 mmol/L (10-20); BUN (Urea Nitrogen) 27 mg/dL (9.8-20.1); Calc. Creatinine Clearance 32 mL/min (70-130); Carbon Dioxide 19 mmol/L (23-31); Chloride 111 mmol/L (98-107); Estimated GFR-MDRD 33
[2017-01-15 05:28] LABS: Band 5 % (5-11); Hematocrit 39.9 % (36.0-47.0); Mean Platelet Volume 9.7 fL (7.4-10.4); Neutrophil 54 % (42-75); Red Blood Cell (RBC) Count 4.04 mill/uL (4.20-5.40); White Blood Cell (WBC) Count 6.4 thou/uL (4.8-10.8)
--- NOTE | 2017-01-15 05:44 | HP ---
DATE OF ADMISSION: 01/15/2017 TIME OF SERVICE: 0030 PRIMARY CARE PHYSICIAN: Dr. Shah in [place]. CHIEF COMPLAINT: Low blood pressure. HISTORY OF PRESENT ILLNESS: Ms. Davidson is a 61-year-old -[place] female well known to me fr om her last hospital stay. She presented initially for weakness, marginal blood pressure and altered mental status. During that stay, she was found to be persistently bradycardic despite having an AIC D with pacing function present. She was here in the hospital for 11 days, she was given IV fluids to reverse her acute kidney injury, she also had an EP consultation and ended up getting an upgraded du al chamber pacemaker. She was discharged home about 10 days ago on home medications. Patient states that she is not really sure why she was brought to the hospital. She states her breat moris is fine, but she does continue to feel tired. No chest pain or shortness of breath at present. No nausea, vomiting, diarrhea, or constipation. In the emergency department, she was noted to have fairly normal labs, creatinine was noted to be inc reased from her new baseline, and after I had seen her and they agreed to admit the patient, she spik ed a fever to 102. She remains slightly tachypneic the entire time, but says she does not feel short of breath. PAST MEDICAL HISTORY: 1. Coronary artery disease. 2. Chronic systolic congestive heart failure. 3. Ischemic cardiomyopathy with an EF of 15%-20%. 4. Essential hypertension. 5. Anxiety. 6. Hyperlipidemia. 7. Obesity. 8. Chronic obstructive pulmonary disease. 9. Peripheral vascular disease. 10. Varicose veins of the lower extremities. 11. Chronic kidney disease 3. PAST SURGICAL HISTORY: 1. Left AKA. 2. Hysterectomy. 3. Right knee repair. 4. Breast biopsy. 5. AICD placement. 6. Dual chamber pacemaker upgrade in 12/2016. HOME MEDICATIONS: 1. Tessalon [place] 100 mg p.o. t.i.d. p.r.n. cough. 2. Bupropion SR 150 mg p.o. b.i.d. 3. Carvedilol 12.5 mg p.o. b.i.d. 4. Cefadroxil 500 mg p.o. b.i.d. for 5 more days, this will be completed on 01/13/2017. 5. Klonopin 1 mg p.o. b.i.d. 6. Digoxin 0.125 mg p.o. daily. 7. Lasix 40 mg p.o. b.i.d. 8. Isosorbide mononitrate 30 mg daily. 9. Zestril 20 mg daily. 10. KCl 40 mEq daily. ALLERGIES: No known drug allergies. FAMILY HISTORY: Negative for clotting or bleeding disorders. No immune dysfunction. SOCIAL HISTORY: She lives at home alone. She has family that lives nearby. She spends most of the day in a wheelchair and is able to transfer most of the time with her good leg from bed to wheelchair to potty chair and back. REVIEW OF SYSTEMS: A 10-point review of systems was performed, negative for all systems except as st ated as per HPI. PHYSICAL EXAMINATION: VITAL SIGNS: Temperature 98.2, pulse 78, blood pressure 132/59, respiratory rate 23, satting 97% on room air. T-max after I saw her was up to 102. GENERAL: She is awake. She is alert. She is chronically ill-appearing, obese -[place] valerie evans who was lying in bed. She opens her eyes and interacts to verbal stimuli. HEENT: Head is normocephalic, atraumatic. Pupils are equal and reactive to light bilaterally. Muco us membranes are moist without visible lesion, no thrush. NECK: Supple. There is no lymphadenopathy, JVD, or thyromegaly. She has normal carotid upstrokes. LUNGS: Clear to auscultation bilaterally, anteriorly. She has no wheezes, rales, or rhonchi. No pr olonged expiratory phase. She has some faint crackles present in the bilateral bases. CARDIOVASCULAR: She has a regular rhythm around 80. She has a 2-3/6 holosystolic murmur best heard at the apex. ABDOMEN: Obese. It is nontender and nondistended. She has normoactive bowel sounds. There is no r ebound, rigidity, or guarding. No peritoneal signs. EXTREMITIES: Show no cyanosis, no clubbing with 1+ edema of the right leg. Her left stump site was clean, dry, and intact with some minimal stump edema. SKIN: Otherwise warm, moist, and well perfused. MUSCULOSKELETAL: Otherwise normal to inspection without any inflamed joints and no palpable effusion s. NEUROLOGIC: Cranial nerves II through XII are grossly intact. She has no focal neurologic deficits. Strength is 4-5/5 in all 4 of her extremities. LABORATORY DATA AND X-RAY FINDINGS: CMP is normal except for a creatinine of 2.18. She was around 1 .2 on discharge. The remainder of her electrolytes remained normal. CBC showed a white count of 6.9 , hemoglobin 14.9, hematocrit of 49.4, platelet count of 137,000. Chest x-ray shows some mild pulmon jeffrey vascular congestion. ASSESSMENT AND PLAN: 1. Fever: 102 in the ER. Patient recently in the hospital. She was slightly tachypneic when she c kg in. She had some increased pulmonary vascular congestion, but I do feel like overall she is dehy drated. We will start her on antibiotics with cefepime and levofloxacin to cover for healthcare-asso ciated pneumonia. We will repeat chest x-ray in the morning. Oxygen as needed. Currently, satting 100% on room air. 2. Hypertension. We will continue home medications. We will hold the Lasix for right now. 3. Acute kidney injury: Creatinine up to 2.18 from 1.2. The patient I think is intravascularly vol ume depleted due to her Lasix. We will decrease the Lasix to 40 mg once a day once we get her rehydr ated. We will start her on IV fluids 60 mL per hour right now. 4. History of chronic systolic congestive heart failure. 5. Anxiety. 6. Hyperlipidemia. We will continue home medications. 7. History of chronic obstructive pulmonary disease, currently without exacerbation. 8. Chronic kidney disease 3 with acute kidney injury. The patient was placed in observation, we will gently hydrate, continue home medications, we will hol d the Lasix and restart at 40 mg once a day once her creatinine normalizes.
[2017-01-15] MEDS ORDERED: Carvedilol 25 MG TAB PO SCH (08:00)
--- NOTE | 2017-01-15 08:18 | RAD ---
PORTABLE CHEST: Date: 01/15/17 HISTORY: Fever, tachypnea. COMPARISON: 01/14/17. FINDINGS: Mild cardiomegaly. AICD leads. Aortic calcification. Lungs appear clear with no infiltrate or vascula r congestion. IMPRESSION: No acute lung process identified. POS: [facility]
[2017-01-15] MEDS ORDERED: Digoxin 0.125 MG TAB PO SCH ×2 (09:00→12:45)
[2017-01-15] MEDS ORDERED: Cefepime 1 GM in Sodium Chloride 0.9% 100 ML IVPB SCH (09:00)
--- NOTE | 2017-01-15 09:34 | PDOC.PN ---
- Subjective Encounter Start Date: 01/15/17 Encounter Start Time: 09:33 Subjective: occ sticking ant chest pain - Objective Resuscitation Status: Resuscitation Status FULL:Full Resuscitation MAR Reviewed: Yes Vital Signs & Weight: Vital Signs (12 hours) Temp Pulse Resp BP Pulse Ox 01/15/17 07:48 99.0 F 80 20 135/72 92 L 01/15/17 02:54 92 L 01/15/17 02:45 100.0 F H 86 24 H 01/15/17 02:42 100.0 F H 86 24 H 104/55 L 92 L Weight Weight 146 lb 6.4 oz I&O: 01/14/17 01/15/17 01/16/17 06:59 06:59 06:59 Intake Total 191 Balance 191 Result Diagrams: 01/15/17 04:48 01/15/17 04:48 Phys Exam - Physical Examination Constitutional: NAD Neck: no JVD Respiratory: clear to auscultation bilateral Cardiovascular: RRR, no significant murmur Gastrointestinal: soft, positive bowel sounds Musculoskeletal: no edema Dx/Plan (1) CAD in [place] artery Code(s): I25.10 - ATHSCL HEART DISEASE OF [place] CORONARY ARTERY W/O ANG PCTRS Status: Acute Comment: chronic, stable (2) Cardiomyopathy Code(s): I42.9 - CARDIOMYOPATHY, UNSPECIFIED Status: Acute Qualifiers: Cardiomyopathy type: unspecified Qualified Code(s): I42.9 - Cardiomyopathy , unspecified Comment: EF 10-15%, AICD in place, NYHA IV (3) Hypoxemia Code(s): R09.02 - HYPOXEMIA Status: Chronic Comment: ? chronic component, recheck RA saturations, may need Home O2 at d/c (4) Physical deconditioning Code(s): R53.81 - OTHER MALAISE Status: Chronic Comment: from bradycardia (5) CKD (chronic kidney disease), stage III Status: Chronic Comment: Stable (6) COPD (chronic obstructive pulmonary disease) Status: Chronic Comment: Continue Duonebs, inv steroids (7) HLD (hyperlipidemia) Code(s): E78.5 - HYPERLIPIDEMIA, UNSPECIFIED Status: Chronic Comment: Will hold statin another 48h then resume due to rhabdomyolysis (8) HTN (hypertension) Code(s): I10 - ESSENTIAL (PRIMARY) HYPERTENSION Status: Chronic Qualifiers: Hypertension type: essential hypertension - Plan cxr reveals no chf or infiltrate, WBC count Nl, blood C&S pending -: does have temp 100, monitor -: selected home meds * .
[2017-01-15] MEDS ORDERED: Carvedilol 6.25 MG TAB PO SCH (12:45)
[2017-01-15] MEDS: Famotidine 20 MG TAB PO SCH (12:46)
[2017-01-15] MEDS: Cefepime 1 GM, Admixture Fee 1 EACH in Sterile Water 10 ML SLOW IVP SCH ×2 (13:16→22:14)
[2017-01-15] MEDS: Enoxaparin Sodium 30 MG/0.3 ML SYRINGE SC SCH (13:16)
[2017-01-15] MEDS ORDERED: BUPROPION HCL 150 MG PO SCH (21:00)
[2017-01-15] MEDS: Bupropion 150 MG SR TAB PO SCH (22:02)
[2017-01-15] MEDS: Carvedilol 6.25 MG TAB PO SCH (22:13)
[2017-01-15] MEDS: clonazePAM 1 MG TAB PO SCH (22:14)
[2017-01-16] MEDS ORDERED: Docusate Sodium 100 MG/10 ML UDCUP PO SCH (09:00)
[2017-01-16] MEDS ORDERED: Lisinopril 20 MG TAB PO SCH (09:00)
[2017-01-16] MEDS ORDERED: Digoxin 0.125 MG TAB PO SCH (09:00)
[2017-01-16] MEDS ORDERED: Potassium Chloride 8 MEQ TAB PO SCH (09:00)
[2017-01-16] MEDS ORDERED: Furosemide 20 MG TAB PO SCH (09:00)
--- NOTE | 2017-01-16 09:53 | DIS ---
TRANSFER OF CARE NOTE PRIMARY CARE PROVIDER: Dr. Gregorio Shah DATE OF DISCHARGE: 01/16/2017 DISPOSITION: Discharged home. FINAL DIAGNOSES: 1. Fever, resolved. No source of any infection. 2. Chronic systolic heart failure. 3. Cardiac pacemaker. 4. Coronary artery disease. 5. Cardiomyopathy. 6. Chronic hypoxic respiratory failure. 7. Chronic kidney disease stage 3. 8. Chronic obstructive pulmonary disease. 9. Hypertension. 10. Hyperlipidemia. 11. Physical deconditioning. 12. Peripheral vascular disease. DISCHARGE MEDICATIONS: Coreg 12.5 mg twice a day, Bupropion 150 twice a day, digoxin 125 mcg a day, Klonopin 1 mg twice a day, Lasix 40 mg twice a day, Imdur 30 mg a day, lisinopril 20 mg a day, potass ium 8 mEq a day. ALLERGIES: No known drug allergies. PENDING AT THE TIME OF DISCHARGE: Nothing. CODE STATUS: Full. HOSPITAL COURSE: The patient was admitted to the [facility] through the emergenc y department with weakness. She had one temperature of 102. Her chest x-ray, no acute lung process, AICD, mild cardiomegaly. LABORATORY: Creatinine 1.86, BUN 27, sodium 139, potassium 4.2. White count 6.4 with no left shift, hemoglobin 13.3, platelet count 102,000. The patient had no fever after admission, she did have on admission, temperature of 100.0. Subsequen tly, they have all been within normal limits. Her vital signs were within normal limits. Cardioresp iratory exam is normal. Microbiology reveals negative cultures. She is being discharged home on her home medicines. CONSULTATIONS: None. PROCEDURES: None. When told she was being discharged home she said she wanted to be worked up for her headaches, that s he wanted to know why she had headaches. I told her she would need to follow up with her PCP. I hav e advised her to follow up with Dr. Shah within 1 week.
[2017-01-16] MEDS: Cefepime 1 GM, Admixture Fee 1 EACH in Sterile Water 10 ML SLOW IVP SCH (10:05)
[2017-01-16] MEDS: Enoxaparin Sodium 30 MG/0.3 ML SYRINGE SC SCH (10:06)
[2017-01-16] MEDS: Bupropion 150 MG SR TAB PO SCH (10:07)
[2017-01-16] MEDS: Carvedilol 6.25 MG TAB PO SCH (10:08)
[2017-01-16] MEDS: clonazePAM 1 MG TAB PO SCH (10:08)
[2017-01-16] MEDS: Famotidine 20 MG TAB PO SCH (10:09)
[2017-01-16 11:53] VITALS: BP 134/65; TEMP 97.9
== END 2017-01-16 12:49 | disposition home or self-care (01) ==
LOC: ERS 20:41 → 2SE 01-15
PROVIDERS: ADMIT Internal Medicine Infectious Disease; ATTEND Internal Medicine Infectious Disease
DX: R50.9 Fever, unspecified (principal); I13.0 Hypertensive heart and chronic kidney disease with heart failure and stage 1 through stage 4 chronic kidney disease, or unspecified chronic kidney disease; N18.3 Chronic kidney disease, stage 3 (moderate); I50.22 Chronic systolic (congestive) heart failure; I25.10 Atherosclerotic heart disease of native coronary artery without angina pectoris; J96.11 Chronic respiratory failure with hypoxia; J44.9 Chronic obstructive pulmonary disease, unspecified; E78.5 Hyperlipidemia, unspecified; R53.81 Other malaise; I73.9 Peripheral vascular disease, unspecified; F41.9 Anxiety disorder, unspecified; I42.9 Cardiomyopathy, unspecified; I83.93 Asymptomatic varicose veins of bilateral lower extremities; Z79.899 Other long term (current) drug therapy; Z95.810 Presence of automatic (implantable) cardiac defibrillator; Z89.612 Acquired absence of left leg above knee; Z90.710 Acquired absence of both cervix and uterus; Z98.890 Other specified postprocedural states; Z87.891 Personal history of nicotine dependence
CPT/HCPCS: 36415; 36416; 71010; 80048; 85025; 87040; 96360; 96361; 96365; 96366; 96372; A4216; G0378; J0692; J1650; J1956

== ENCOUNTER 2017-03-11 11:48 | Observation (INO) | payer OTHER, SELFPAY ==
[2017-03-11 12:57] LABS: Band 2 % (5-11); Hemoglobin 13.2 g/dL (12.0-16.0); Lymphocytes 58 % (21-51); MDiff Complete? YES; Mean Corpuscular HGB CONC 31.7 g/dL (32.0-36.0); Mean Corpuscular Hemoglobin 31.7 pg (27.0-31.0); Mean Platelet Volume 8.7 fL (7.4-10.4); Monocytes 13 % (0-10); Neutrophil 27 % (42-75); Platelet Count 288 thou/uL (130-400); Red Blood Cell (RBC) Count 4.15 mill/uL (4.20-5.40); White Blood Cell (WBC) Count 4.7 thou/uL (4.8-10.8)
[2017-03-11 13:08] LABS: CKMB 0.9 ng/mL (0-6.6); Troponin I 0.042 ng/mL (< 0.028)
--- NOTE | 2017-03-11 13:15 | RAD ---
SINGLE VIEW OF THE CHEST: COMPARISON: 01/15/17. HISTORY: Chest tightness and productive cough. FINDINGS: A single view of the chest shows an enlarged cardiomediastinal silhouette with atherosclerotic calcif ications in the aorta. The pacemaker is unchanged in position. There is no evidence of consolidatio n, mass, or pleural effusion. IMPRESSION: Cardiomegaly without evidence of acute cardiopulmonary disease. POS: ISAELH
[2017-03-11 13:17] LABS: Anion Gap 16 mmol/L (10-20); BUN (Urea Nitrogen) 13 mg/dL (9.8-20.1); Calc. Creatinine Clearance 0 mL/min (70-130); Calcium 9.2 mg/dL (7.8-10.44); Carbon Dioxide 22 mmol/L (23-31); Chloride 106 mmol/L (98-107); Estimated GFR-MDRD 61; Glucose 95 mg/dL (80-115); Potassium 3.6 mmol/L (3.5-5.1); Sodium 140 mmol/L (136-145)
[2017-03-11] MEDS ORDERED: Furosemide 20 MG/2 ML VIAL ONE (13:50)
[2017-03-11] MEDS ORDERED: methylPREDNISolone Sod Succ/PF 125 MG/2 ML VIAL ONE (13:50)
[2017-03-11] MEDS ORDERED: Water For Inject, Bacteriostat 30 ML ONE (13:50)
[2017-03-11 14:28] LABS: Bilirubin Negative (Negative); Blood, Urine Large (Negative); Clarity CLOUDY (Clear); Glucose, Urine (Dipstick) Negative (Negative); Leukocyte Moderate (Negative); Nitrite Positive (Negative); Protein, Urine (Dipstick) 100 mg/dL (Neg-Trace); Specific Gravity, Urine 1.018 (1.002-1.036); pH, Urine 5.5 (5.0-9.0)
[2017-03-11 14:30] LABS: Bacteria/HPF 2+ HPF (None Seen); Hyaline Casts/LPF 0-3 HYALINE CAST LPF (0-3 Hyaline); RBC/HPF GREATER THAN 50-TNTC HPF (0-3); Squamous Epithelial 0-3 HPF (0-3); WBC/HPF 21-50 HPF (0-3)
[2017-03-11] MEDS ORDERED: Ondansetron HCl/PF 4 MG/2 ML Vial IVP PRN (16:14)
[2017-03-11] MEDS ORDERED: Acetaminophen 325 MG TAB PO PRN (16:14)
[2017-03-11] MEDS ORDERED: Ondansetron ODT 4 MG TAB SL PRN (16:14)
[2017-03-11] MEDS ORDERED: HYDROcodone/Acetaminophen 5/325 mg Tablet PO PRN ×2 (16:14)
[2017-03-11] MEDS ORDERED: Enoxaparin Sodium 30 MG/0.3 ML SYRINGE SC SCH (17:00)
[2017-03-11] MEDS ORDERED: Furosemide 40 MG/4 ML VIAL SLOW IVP SCH (17:00)
[2017-03-11 18:22] VITALS: BMI 29.2
[2017-03-11] MEDS ORDERED: Benzonatate 100 MG CAP PO PRN (18:22)
--- NOTE | 2017-03-11 20:55 | HP-2 ---
CODE STATUS: FULL. PRIMARY CARE PHYSICIAN: Dandre thorpe. ATTENDING PHYSICIAN: Dr. Read. RESIDENT: Dr. Carranza. CHIEF COMPLAINT: Shortness of breath and insomnia. HISTORY OF PRESENT ILLNESS: This is a 61-year-old female with past medical history of systolic congestive heart failure with ejection fraction of 10% to 15 % as well as COPD that presented with a mildly worsening shortness of breath over the past 3 days as well as reported insomnia. She states that she has been unable to sleep for the past couple of days and has really been annoying her and eventually this has prompted her to come to the Emergency Department. She also does endorse an intermittent cough. The patient recently left hospice due to personal reasons. Hospice was filling medications and she has been out of some of her medications since leaving hospice. Prior to leaving hospice, patient was also on oxygen p.r.n.; however, she has also not been using this as she has not had it available to her. The patient endorses some orthopnea. Additionally, the patient has some suprapubic pain and has polyuria more so than usual. She also does endorse some musculoskeletal pain in her back and on her left stump. The patient was given furosemide 20 mg IV in the Emergency Department as well as Levaquin 750 mg, methylprednisolone 125 mg IV and DuoNeb treatment. PAST MEDICAL HISTORY: 1. Systolic congestive heart failure with an ejection fraction of 10% to 15% noted on echo in 12/2016. 2. Coronary artery disease. 3. Hyperlipidemia. 4. Hypertension. 5. Arthritis. 6. Chronic obstructive pulmonary disease. 7. Arrhythmia status post dual chamber automatic implantable cardioverter- defibrillator placement in 12/2016. 8. Obesity. 9. Peripheral vascular disease, status post left above-knee amputation. 10. Varicose leg ulcers. 11. Bipolar disorder. 12. Depression. PAST SURGICAL HISTORY: 1. Left above-knee amputation. 2. Pacemaker. 3. Dual chamber automatic implantable cardioverter-defibrillator. 4. Hysterectomy. 5. Right knee surgery. 6. Wrist biopsy. ALLERGIES: No known drug allergies. MEDICATIONS: 1. Benzonatate 100 mg capsule t.i.d. p.r.n. 2. Bupropion 150 mg b.i.d. 3. Carvedilol 12.5 mg b.i.d. 4. Clonazepam 1 mg p.o. b.i.d. 5. Digoxin 125 mcg p.o. daily. 6. Docusate sodium 50 mg capsule daily. 7. Furosemide 60 mg in the a.m. and 40 mg at night. 8. Isosorbide mononitrate 30 mg daily. 9. Lisinopril 20 mg daily. 10. Potassium chloride 8 mEq p.o. daily. FAMILY HISTORY: Noncontributory. SOCIAL HISTORY: The patient is a 4-pack per day smoker since the age of 13. She states that a couple weeks ago, she cut back to 5-10 cigarettes per day. She does endorse drinking socially and does have a history of marijuana abuse. REVIEW OF SYSTEMS: A 12-point review of systems was performed, which include general, eyes, ENT, respiratory, CV, GI, , skin, musculoskeletal, neuro and psych. All were negative except as listed in the HPI. PHYSICAL EXAMINATION: VITAL SIGNS: Blood pressure 147/89, pulse 100, respiratory rate 20, T-max 98.3 , pulse ox 96% on 2 liters and current weight 77 kilograms. GENERAL: The patient is alert and oriented x3, no acute distress, well- developed, well-nourished, obese. She does have some tangential thinking and is very distractable. EYES: Pupils are equally round and reactive to light and accommodation. ENT: Nasal mucosa within normal limits. Oropharynx within normal limits. NECK: Supple. CARDIOVASCULAR: Regular rate and rhythm. No murmurs. Radial pulses, pedal pulses 1+. RESPIRATORY: Normal effort. No retractions. Mild bibasilar rales. SKIN: Warm and dry. No cyanosis. No lesions. ABDOMEN: Soft, mildly tender to palpation in the suprapubic region. No masses or distention. EXTREMITIES: No clubbing, cyanosis or edema. MUSCULOSKELETAL: Structure within normal limits. NEUROLOGIC: No focal deficits. GCS 15. PSYCHIATRIC: Pressured speech and tangential thinking. LABORATORY AND RADIOGRAPHIC DATA: 1. CBC reveals a white blood cell count of 4.7, hemoglobin 13.2, hematocrit 41.5 and platelets 288. 2. CMP reveals sodium of 140, potassium 3.6, chloride 106, bicarbonate 22, BUN 13, creatinine 1.09, glucose 95 and calcium 9.2. 3. CK-MB is 0.9, troponin 0.042. 4. BNP 3775. 5. UA shows specific gravity 1.018 with large blood, 100 protein, moderate leukocyte esterase, positive nitrites, red blood cells greater than 50, white blood cells 21-50 and bacteria 2+. 6. Influenza negative. 7. Chest x-ray shows cardiomegaly without evidence of acute cardiopulmonary disease. ASSESSMENT AND PLAN: This is a 61-year-old female that presented with worsening shortness of breath and insomnia. 1. Mild chronic obstructive pulmonary exacerbation. The patient was admitted to telemetry for observation. She was given Levaquin in the Emergency Department as well as methylprednisolone and DuoNebs. Prednisone 40 mg will be continued for a period of 5 days. The patient will continue to get DuoNebs scheduled q.4 hours for treatment of chronic obstructive pulmonary disease exacerbation. 2. Chronic congestive heart failure with an ejection fraction of 10% to 15% noted on echo in 12/2016, appears stable at this time. The patient does not appear to be fluid overloaded. She did have some mild rales on clinical exam. Chest x-ray did not show any evidence of acute cardiopulmonary disease. The patient was given 20 mg IV Lasix in the Emergency Department. She was given additional 40 mg and will be continued on her home medications after this point. Additionally, she will be placed on 1800 mL fluid restriction diet. We will monitor strict I's and O's. 3. Hypertension. Continue home medications. 4. Urinary tract infection. The patient will be started on Macrobid b.i.d. for treatment of urinary tract infection. Urinary tract infection appears to be uncomplicated. 5. Peripheral vascular disease, status post amputation. The patient able to transfer by herself. We will put fall risks while in hospital. 6. Bipolar disorder. Uncertain whether or not patient has been taking her medications. Questionable whether or not she is in a manic phase, which is contributing to her recent insomnia as well as her pressured speech. We will continue her home medications while she is here in the hospital and continue to monitor. 7. Arthritis. We will give Tylenol or ibuprofen p.r.n. for pain. 8. Insomnia. The patient states she has been unable to sleep for the past few days. She does have some pressured speech. She has a history of bipolar disorder, uncertain whether or not she is currently in a manic episode, uncertain whether or not she has been taking her medications. We will continue home medications and if still unable to sleep, we will add on hydroxyzine. DISPOSITION AND LENGTH OF HOSPITAL STAY: One day. Symptomatic medications will be provided. History and physical exam as well as management were discussed with Dr. Read. JILLIAN
[2017-03-11] MEDS ORDERED: Furosemide 40 MG TAB PO SCH (21:00)
[2017-03-11] MEDS: Carvedilol 25 MG TAB PO SCH (21:24)
[2017-03-11] MEDS: Bupropion 150 MG SR TAB PO SCH (21:24)
[2017-03-11] MEDS: Nitrofurantoin Monohyd/M-Cryst 100 MG CAP PO SCH (21:25)
[2017-03-11] MEDS: clonazePAM 1 MG TAB PO SCH (21:25)
[2017-03-12 05:17] LABS: Anion Gap 17 mmol/L (10-20); BUN (Urea Nitrogen) 17 mg/dL (9.8-20.1); Calc. Creatinine Clearance 50 mL/min (70-130); Carbon Dioxide 23 mmol/L (23-31); Chloride 102 mmol/L (98-107); Estimated GFR-MDRD 53; Glucose 206 mg/dL (80-115); Potassium 3.9 mmol/L (3.5-5.1); Sodium 138 mmol/L (136-145)
[2017-03-12] MEDS ORDERED: predniSONE 20 MG TAB PO SCH (08:00)
[2017-03-12] MEDS: clonazePAM 1 MG TAB PO SCH (08:30)
[2017-03-12] MEDS: Bupropion 150 MG SR TAB PO SCH (08:31)
[2017-03-12] MEDS: Carvedilol 25 MG TAB PO SCH (08:32)
[2017-03-12] MEDS: Nitrofurantoin Monohyd/M-Cryst 100 MG CAP PO SCH (08:33)
[2017-03-12] MEDS ORDERED: Enoxaparin Sodium 30 MG/0.3 ML SYRINGE SC SCH (09:00)
[2017-03-12] MEDS ORDERED: Potassium Chloride 8 MEQ TAB PO SCH (09:00)
[2017-03-12] MEDS ORDERED: Furosemide 40 MG TAB PO SCH (09:00)
[2017-03-12] MEDS ORDERED: Docusate Sodium 100 MG/10 ML UDCUP PO SCH (09:00)
[2017-03-12] MEDS ORDERED: Digoxin 0.125 MG TAB PO SCH (09:00)
[2017-03-12] MEDS ORDERED: Lisinopril 20 MG TAB PO SCH (09:00)
--- NOTE | 2017-03-12 09:35 | PDOC.FM ---
- Subjective Subjective: Patient reports continued SOB overnight. Denies NUÑEZ, CP, N/V, Abd pain. Reports she feels like she's "smoking." - Objective MAR Reviewed: Yes Vital Signs & Weight: Vital Signs (12 hours) Temp Pulse Resp BP BP Pulse Ox 03/12/17 08:30 74 03/12/17 07:52 97.4 F L 71 28 H 140/75 95 03/12/17 04:00 98.2 F 76 20 144/79 H 94 L 03/12/17 02:12 74 16 95 03/12/17 00:44 134/81 03/11/17 22:38 77 16 95 Weight Weight 68.674 kg I&O: 03/11/17 03/12/17 03/13/17 06:59 06:59 06:59 Intake Total 210 Output Total 325 Balance -115 Result Diagrams: 03/11/17 12:29 03/12/17 04:00 <Stan Goff - Last Filed: 03/12/17 09:33> - Objective Vital Signs & Weight: Vital Signs (12 hours) Temp Pulse Resp BP Pulse Ox 03/12/17 15:45 97.5 F L 68 20 132/73 95 03/12/17 11:45 97.1 F L 63 16 126/77 92 L Weight Weight 68.674 kg I&O: 03/11/17 03/12/17 03/13/17 06:59 06:59 06:59 Intake Total 210 350 Output Total 325 Balance -115 350 Result Diagrams: 03/11/17 12:29 03/12/17 04:00 <Nasrin Mariee - Last Filed: 03/12/17 22:14> Phys Exam - Physical Examination Constitutional: NAD Neck: full ROM Respiratory: no wheezing, clear to auscultation bilateral Cardiovascular: RRR, no significant murmur Gastrointestinal: soft TTP on right side of stomach Musculoskeletal: no edema, pulses present Neurological: non-focal, normal sensation Psychiatric: normal affect <Stan Goff - Last Filed: 03/12/17 09:33> Dx/Plan (1) COPD exacerbation Code(s): J44.1 - CHRONIC OBSTRUCTIVE PULMONARY DISEASE W (ACUTE) EXACERBATION Status: Chronic Plan: mild continue with steroids no significant signs of fluid overload, but will continue with fluid restriction likely ok to discharge later today (2) CAD in [place] artery Code(s): I25.10 - ATHSCL HEART DISEASE OF [place] CORONARY ARTERY W/O ANG PCTRS Status: Acute (3) UTI (urinary tract infection) Status: Acute Plan: continue macrobid (4) HTN (hypertension) Code(s): I10 - ESSENTIAL (PRIMARY) HYPERTENSION Status: Chronic QualifierTitle: Hypertension type: essential hypertension (5) Chronic systolic CHF (congestive heart failure) Code(s): I50.22 - CHRONIC SYSTOLIC (CONGESTIVE) HEART FAILURE Status: Chronic <Stan Goff - Last Filed: 03/12/17 09:33> Attending Addendum - Attending Addendum I personally evaluated the patient and discussed the management with Dr. Goff. I agree with the History, Examination, Assessment and Plan documented above with any addition or exceptions noted below. The patient is feeling much better. She states breathing is at baseline. Restarting heart failure and copd meds. If continues to do well, will likely discharge. <Nasrin Mariee - Last Filed: 03/12/17 22:14>
--- NOTE | 2017-03-12 09:51 | HP ---
ATTENDING ADDENDUM DATE OF ADMISSION: 03/11/2017 DATE OF DICTATION: 03/12/2017 The patient was seen and examined and chart reviewed with Dr. Carranza and I agree with the assessme nt and plan. HISTORY: The patient is a 61-year-old black female with a past medical history of severe end-stage c ongestive heart failure with an ejection fraction of 10-15%, coronary artery disease, hyperlipidemia, hypertension, degenerative joint disease, chronic obstructive pulmonary disease, status post automat ic implantable cardioverter/defibrillator, peripheral vascular disease, status post left [id number] [id number] amputation, bipolar disorder and depression who was admitted for a mild congestive heart failure e xacerbation as the patient presented with the complaint of insomnia. When asked further, she states that she has been unable to lie down for the last 3 days and feels like she is smothering when she do es. She does not have any dyspnea on exertion; however, she does have a [place] Heart Class of 3 co ndition at baseline and has been out of her medication for the last several days to weeks, ever since hospice care was discontinued by the patient when she thought that "they might be wanting to kill me ". Otherwise she is having no chest pain, increased edema, nausea, vomiting. PAST MEDICAL HISTORY/MEDICATIONS: Please see the resident's report. PHYSICAL EXAMINATION: GENERAL: The patient is a well-nourished, well-developed black female in no acute distress, sitting upright in bed. NECK: She has no jugular venous distention. HEART: Her heart has a regular rhythm, rate of 80 without rub, murmur or gallop. CHEST: Her chest had bilateral breath sounds with bibasilar rales. LABORATORY: Her lab work is as reported by the resident with an elevated BNP of 3775. Urinalysis s hows 2+ bacteria, 20-50 white blood cells. The patient is being admitted for congestive heart failure exacerbation with mild chronic obstructive pulmonary disease exacerbation as well. The patient really appears to be in no acute distress. We will treat accordingly. She also had a mild urinary tract infection which can be treated as an outpa tient. The patient likely will be able to return home after a brief hospital stay. We had some discussion about the benefits of hospice care in light of her advanced coronary artery di sease and will have case management to assess in the morning and to reassess the possibility of reins tituting hospice care at home.
[2017-03-12 15:59] VITALS: BP 132/73; TEMP 97.5
--- NOTE | 2017-03-13 13:38 | DIS-2 ---
DATE OF ADMISSION: 03/11/2017 DATE OF DISCHARGE: 03/12/2017 ADMITTING ATTENDING: Parker Read M.D. DISCHARGE ATTENDING: Nasrin Mariee M.D. RESIDENT: Stan Goff D.O. CONSULTS: None. PROCEDURES: Chest x-ray on 03/11/2017 showing cardiomegaly without evidence of acute cardiopulmonary disease with no evidence of consolidation, mass or pleural effusion. PRIMARY DIAGNOSIS: Mild chronic obstructive pulmonary disease exacerbation. SECONDARY DIAGNOSES: 1. Coronary artery disease. 2. Urinary tract infection. 3. Hypertension. 4. Chronic systolic congestive heart failure. DISCHARGE MEDICATIONS: 1. Macrobid 100 mg p.o. daily. 2. Prednisone 40 mg p.o. daily with breakfast x5 days. 3. Carvedilol 12.5 mg p.o. b.i.d. 4. Digoxin 125 mcg p.o. daily. 5. Isosorbide mononitrate 30 mg p.o. daily. 6. Lisinopril 20 mg p.o. daily. 7. Tessalon Perles 100 mg p.o. t.i.d. p.r.n. cough. 8. Bupropion 150 mg p.o. b.i.d. 9. Clonazepam 1 mg p.o. b.i.d. 10. Furosemide 60 mg p.o. q.a.m. 11. Potassium chloride 8 mEq p.o. daily. 12. Docusate sodium 50 mg p.o. daily. 13. Furosemide 40 mg p.o. at bedtime. DISCONTINUED MEDICATIONS: None. HOSPITAL COURSE: The patient is a 61-year-old female who presented to the emergency room with shortn ess of breath over the past 3 days. The patient has a longstanding history of COPD and systolic hear t failure with an ejection fraction of 10-15% and has in the past been on hospice; however, recently left hospice due to personal reasons and as such she has been off of medications since that time. Ho wever, the patient reports that the true reason she ended up coming to the hospital is because her in somnia is keeping up and he was getting tired of this. On initial evaluation in the emergenc y room, patient's labs showed a BNP of 3775 which is about baseline for her. The patient did not marialuisa ear to be fluid overloaded; therefore conservative treatment was started with steroids and DuoNebs. In addition, the patient was given 20 mg of IV Lasix and restarted on all of her COPD and CHF home me dications. The following morning, the patient was found having reported improved sleep and breathing was improved. Therefore, the patient was clinically stable to be sent home on prednisone for 5 days and restarted on home medications. It is also worth noting that the patient did have a UTI and was started on Macrobid. As patient has been on hospice in the past, the Palliative Care team was consulted to help possibly s et up home health services as the patient has left hospice care and currently does not have any true caretakers at home. As of discharge, Palliative Care had contacted the home health company in [facility] where the patient lives; however, they reported that the patient was 10 miles outside of their [facility] area therefore, the palliative care RN stated that she would reach out to the [place] office to see if they would be able to see the patient and there is no further reports of success or failure o f the [place] office to contact the patient. DISPOSITION: Guarded. DISCHARGE INSTRUCTIONS: 1. Location: Home. 2. Diet: Fluid restricted 1500 mL daily and heart healthy. 3. Activity: As tolerated. 4. Followup: Follow up with [facility] as well as [facility] in the next 1-3 da ys.
--- NOTE | 2017-03-31 16:20 | EKG ---
Test Reason : Blood Pressure : / mmHG Vent. Rate : 091 BPM Atrial Rate : 091 BPM P-R Int : 098 ms QRS Dur : 160 ms QT Int : 450 ms P-R-T Axes : 092 -57 125 degrees QTc Int : 553 ms Atrial-sensed ventricular-paced rhythm Abnormal ECG Confirmed by MORIS MTZ M.D. ([id number]), medical editor JASMINA HALL ([id number]) on 03/31/2017 4:19:48 PM Referred By: Confirmed By:MORIS MTZ M.D.
== END 2017-03-12 17:11 | disposition home or self-care (01) ==
LOC: ERS 11:48 → 2SW 16:05
PROVIDERS: ADMIT Family Medicine; ATTEND Family Medicine
DX: I11.0 Hypertensive heart disease with heart failure (principal); I50.84 End stage heart failure; I50.23 Acute on chronic systolic (congestive) heart failure; I25.10 Atherosclerotic heart disease of native coronary artery without angina pectoris; I73.9 Peripheral vascular disease, unspecified; E78.5 Hyperlipidemia, unspecified; J44.1 Chronic obstructive pulmonary disease with (acute) exacerbation; M19.90 Unspecified osteoarthritis, unspecified site; F32.9 Major depressive disorder, single episode, unspecified; N39.0 Urinary tract infection, site not specified; I83.009 Varicose veins of unspecified lower extremity with ulcer of unspecified site; L97.909 Non-pressure chronic ulcer of unspecified part of unspecified lower leg with unspecified severity; G47.00 Insomnia, unspecified; Z79.899 Other long term (current) drug therapy; Z95.810 Presence of automatic (implantable) cardiac defibrillator; Z89.612 Acquired absence of left leg above knee; Z90.710 Acquired absence of both cervix and uterus; Z98.890 Other specified postprocedural states
CPT/HCPCS: 36415; 71045; 80048; 81003; 81015; 82553; 83880; 84484; 85025; 87804; 93005; 94640; 94760; 96372; 96374; 96375; 99406; G0378; J1650; J1940; J2930; J7506; J7620

== ENCOUNTER 2017-03-21 11:58 | Observation (INO) | payer SELFPAY ==
[2017-03-21 13:10] LABS: #Basophils 0.1 thou/uL (0.0-0.2); #Lymphocytes 1.7 thou/uL (1.20-3.40); #Monocytes 0.7 thou/uL (0.11-0.59); #Neutrophils 2.2 thou/uL (1.40-6.50); %Basophils 1.2 % (0.0-1.0); %Lymphocytes 35.5 % (21.0-51.0); %Monocytes 14.1 % (0.0-10.0); %Neutrophils 48.1 % (42.0-75.0); Hemoglobin 13.7 g/dL (12.0-16.0); Mean Corpuscular HGB CONC 31.2 g/dL (32.0-36.0); Mean Corpuscular Hemoglobin 31.5 pg (27.0-31.0); Mean Platelet Volume 9.3 fL (7.4-10.4); Platelet Count 257 thou/uL (130-400); RBC Distribution Width 15.4 % (11.5-14.5); Red Blood Cell (RBC) Count 4.34 mill/uL (4.20-5.40); White Blood Cell (WBC) Count 4.6 thou/uL (4.8-10.8)
--- NOTE | 2017-03-21 13:13 | RAD ---
SINGLE VIEW OF THE CHEST: HISTORY: Dyspnea. COMPARISON: 03/11/2017 FINDINGS: A single view of the chest shows an enlarged but stable cardiomediastinal silhouette. The pacemaker is unchanged in position. There is no evidence of consolidation, mass, or pleural effusion. IMPRESSION: Cardiomegaly without evidence of acute cardiopulmonary disease. POS: [facility]
[2017-03-21 13:16] LABS: INR-International Normal Ratio 1.2; PTT 30.9 SEC (22.9-36.1); Prothrombin Time 15.6 SEC (12.0-14.7)
[2017-03-21 13:31] LABS: ALT (SGPT) 18 U/L (8-55); AST (SGOT) 36 U/L (5-34); Albumin 3.8 g/dL (3.4-4.8); Alkaline Phosphatase 152 U/L (40-150); Anion Gap 15 mmol/L (10-20); BUN (Urea Nitrogen) 21 mg/dL (9.8-20.1); Bilirubin, Total 2.6 mg/dL (0.2-1.2); CK (CPK) 41 U/L (29-168); Calc. Creatinine Clearance 0 mL/min (70-130); Calcium 9.3 mg/dL (7.8-10.44); Carbon Dioxide 21 mmol/L (23-31); Chloride 108 mmol/L (98-107); Estimated GFR-MDRD 51; Globulin 4.2 g/dL (2.4-3.5); Glucose 106 mg/dL (80-115); Potassium 3.9 mmol/L (3.5-5.1); Sodium 140 mmol/L (136-145)
[2017-03-21 13:35] LABS: CKMB 1.5 ng/mL (0-6.6); Troponin I 0.043 ng/mL (< 0.028)
[2017-03-21] MEDS ORDERED: methylPREDNISolone Sod Succ/PF 125 MG/2 ML VIAL ONE (13:55)
[2017-03-21] MEDS ORDERED: Mag-Al 1200 mg/1200 mg/30 ML UDCUP PO PRN (14:15)
[2017-03-21] MEDS ORDERED: Azithromycin 500 MG in Sodium Chloride 0.9% 250 ML 250 ML IVPB SCH (14:15)
[2017-03-21] MEDS ORDERED: Calcium Carbonate 500 MG ChewTAB PO PRN (14:15)
[2017-03-21] MEDS ORDERED: Albuterol Sulfate 2.5 mg/3 ml Neb NEB PRN (14:15)
[2017-03-21] MEDS ORDERED: Acetaminophen 325 MG TAB PO PRN (14:15)
[2017-03-21] MEDS ORDERED: Ondansetron HCl/PF 4 MG/2 ML Vial IVP PRN (14:15)
[2017-03-21] MEDS ORDERED: Milk Of Magnesia 30 ML UDCUP PO PRN (14:15)
--- NOTE | 2017-03-21 16:44 | PDOC.EVN ---
Attending Addendum - Attending Addendum I personally evaluated the patient and discussed the management with Dr. Castro. I agree with the History, Examination, Assessment and Plan documented in her H& P with any addition or exceptions noted below. Patient with history of sCHF with last EF 10-15% s/p AICD placement, HTN, COPD, and CAD presenting with several days of feeling "ill", including abdominal pain , nausea,vomiting, and mild increase in shortness of breath. She was admitted here 10 days ago for COPD/CHF, and patient admits she has not taken any medications since discharge. Her exam is significant for rales in lung bases, and mild LE edema. Her abdominal exam is benign. Vitals overall stable. Lab work shows mild increase in creatinine above baseline, elevated BNP (though chronic), and indeterminate troponin. CXR did not show evidence of severe volume overload. Patient to be admitted for likely mild CHF exacerbation due to medication noncompliance. Strict I/O, trend trops, and diuresis. Resume home medications for other chronic conditions will likely result in symptom improvement. Palliative care consult as patient recently discontinued hospice services due to lack of knowledge about the program. Symptomatic meds for nausea /vomiting as needed. May need gentle fluids if renal function worsens overnight if she continues to have n/v.
[2017-03-21] MEDS ORDERED: Furosemide 20 MG/2 ML VIAL SLOW IVP SCH (17:00)
[2017-03-21 18:46] VITALS: BMI 29.5
[2017-03-21 18:55] LABS: Troponin I 0.026 ng/mL (< 0.028)
[2017-03-21] MEDS: Carvedilol 6.25 MG TAB PO SCH (20:26)
[2017-03-21] MEDS: clonazePAM 1 MG TAB PO SCH (20:27)
[2017-03-21] MEDS: Bupropion 150 MG SR TAB PO SCH (20:27)
[2017-03-21 22:34] LABS: Troponin I 0.032 ng/mL (< 0.028)
[2017-03-22] MEDS ORDERED: Furosemide 20 MG/2 ML VIAL SLOW IVP SCH (06:00)
[2017-03-22 06:20] LABS: Anion Gap 16 mmol/L (10-20); BUN (Urea Nitrogen) 22 mg/dL (9.8-20.1); Calc. Creatinine Clearance 51 mL/min (70-130); Calcium 9.2 mg/dL (7.8-10.44); Carbon Dioxide 23 mmol/L (23-31); Chloride 106 mmol/L (98-107); Estimated GFR-MDRD 53; Glucose 143 mg/dL (80-115); Potassium 4.2 mmol/L (3.5-5.1); Sodium 141 mmol/L (136-145)
--- NOTE | 2017-03-22 06:29 | HP-2 ---
DATE OF ADMISSION: 03/21/2017, the patient seen at 1439 hours. CODE STATUS: FULL. ATTENDING PHYSICIAN: Aaron Valentin M.D. ADMITTING RESIDENT: Maya Castro M.D., PGY-3 HISTORIAN: Patient. CHIEF COMPLAINT: Nausea, vomiting, abdominal pain, shortness of breath. HISTORY OF PRESENT ILLNESS: The patient is a 61-year-old black female who presents with a 1 day history of nausea and vomiting and abdominal pain. During the entirety of the history and physical, patient is not able to give me much detail other than she is having a lot of abdominal pain and feels as if she needs to vomit; however, is not able to vomit. She does endorse that her has been sick recently. Of note, patient was admitted for CHF and COPD approximately 10 days ago. She endorses that she did not pickler helper any of the prescribed medicines after she left the hospital. She also endorses that she has not taken any home medicines for approximately the last month and the only medicine she has taken were the one that were given during her last hospitalization. During the interview, she also states that she has had some skin burning over the site of her AICD pacemaker, which was placed in 12/2016, status post arrhythmia. During her stay, she was also diagnosed with reduced EF , congestive heart failure with an EF of 10% to 15%. She has been noncompliant with diet as well as medications. The patient states that she has also been short of breath over the last few days and has noticed increased fluid in her lower extremities. In the emergency department, the patient was given DuoNeb, azithromycin, Rocephin, and Solu-Medrol. PAST MEDICAL HISTORY: 1. Reduced EF congestive heart failure with EF of 10% to 15% in 12/2016. 2. Coronary artery disease. 3. Hyperlipidemia. 4. Hypertension. 5. Osteoarthritis. 6. Chronic obstructive pulmonary disease. 7. History of arrhythmia with AICD placement. 8. Obesity. 9. Peripheral vascular disease with history of left knpla-hod-qnoq amputation. 10. Varicose ulcers. 11. Bipolar disorder. 12. Depression. PAST SURGICAL HISTORY: 1. Left dlkqy-ype-zzju amputation. 2. AICD placement. 3. Hysterectomy. 4. Right knee surgery. 5. Wrist biopsy. ALLERGIES: No known drug allergies. MEDICATIONS: 1. Bupropion 150 mg b.i.d. 2. Carvedilol 12.5 mg b.i.d. 3. Clonazepam 1 mg p.o. b.i.d. 4. Digoxin 125 mcg p.o. daily. 5. Docusate sodium 50 mg capsule daily. 6. Furosemide 60 mg q.a.m. and 40 mg at bedtime. 7. Isosorbide mononitrate 30 mg 1 tab p.o. daily. 8. Lisinopril 20 mg 1 tab p.o. daily. 9. Potassium chloride 8 mEq 1 tab p.o. daily. FAMILY HISTORY: Noncontributory. PAST SOCIAL HISTORY: The patient states that she has been smoking 4 packs a day since the age of 13 but has reduced her smoking. The patient also endorses that she drinks socially and has previous history cannabis abuse. She lives in the [facility]. She does not work. She endorses her has been sick recently. REVIEW OF SYSTEMS: Ten point review of systems was conducted, pertinent positives are mentioned in HPI, all others are negative. PHYSICAL EXAMINATION: VITAL SIGNS: Blood pressure 155/103, pulse 88, respirations 22, T-max 97.4, pulse ox 100% on 2 liters, and current weight 77 kilograms. GENERAL: The patient is alert and oriented x3. She does appear in mild distress secondary to pain at her IV site and reported nausea. She is obese. She is a poor historian during the interview and exam. EYES: Pupils are equal, round, and reactive to light and accommodation. Extraocular muscles are intact. Conjunctivae within normal limits. ENT: Nasal mucosa and oropharynx moist without erythema. NECK: Supple. No lymphadenopathy. CARDIOVASCULAR: Regular rate and rhythm, no murmurs, gallops, clicks or rubs. Radial pulses and pedal pulses +2. RESPIRATORY: Normal effort, no retractions. Lungs have mild rhonchi and wheezing throughout. SKIN: Warm and dry, free of cyanosis or lesions. ABDOMEN: Soft, nontender to palpation. Bowel sounds present. No masses or distention. EXTREMITIES: No clubbing or cyanosis. There is trace lower extremity pitting edema. Of note, the patient has left AKA. MUSCULOSKELETAL: Structures are within normal limits other then left AKA. Tone is normal. The patient is able to move all of her extremities. NEUROLOGIC: No focal deficits. PSYCHIATRIC: The patient appears anxious and tearful. LABORATORY DATA: White count 4.6, hemoglobin 13.7, hematocrit 43.8, platelets 257, MCV 101. Sodium 140, potassium 3.9, chloride 108, bicarbonate 21, BUN 21, creatinine 1.28, glucose 106, calcium 9.3, AST 36, ALT 18, alkaline phosphatase 152, total bilirubin 2.6. Total protein 8.0. Albumin 3.8. PT, PTT, 30.9 and 15.6. INR 1.2. BNP 4540. CK 41, CK-MB 1.5, troponin 0.043. EKG shows atrial sensed ventricularly paced rhythm with frequent PVCs. ASSESSMENT AND PLAN: This is a 61-year-old female with: 1. Acute exacerbation of reduced ejection fraction congestive heart failure. We will place the patient under observation to the telemetry unit. The patient has been noncompliant with her medications that she has not taken any in over 1 month. Her BNP is elevated slightly above her baseline; however, she has had several admissions in her BNP often runs above the 2000 to 3000 range. Given her reported high dose of daily Lasix, we will start her on aggressive IV diuretics for this admission. We will restart her digoxin, Imdur, lisinopril, carvedilol. She has had a recent echo which showed an ejection fraction of 10% to 15%, so we will not obtain a new echo. We will record strict I's and O's. The patient has fluid and sodium restricted diet. We will educate her on congestive heart failure and try to set her up with [facility]. The patient does state that she is unfunded, so we will try to set her up with the free clinic. She is at high risk for readmission and often comes to the hospital for care of her congestive heart failure. 2. Nausea and vomiting, likely secondary to viral gastroenteritis. Given history of ill contacts, we will check flu swab. The patient's abdominal exam is benign, so we will administer some p.r.n. medications to aid with her abdominal pain. 3. History of arrhythmia. We will need to place the patient on telemetry for monitoring and she also has an AICD. 4. Hypertension. We will restart her home medications. 5. Depression and anxiety. The patient appears very tearful and anxious during the exam. We will restart her home Klonopin. 6. Tobacco abuse. We will provide tobacco cessation education for the patient and give her nicotine patch. 7. Peripheral vascular disease, this is already quite advanced. The patient has a left ogayi-alz-zwco amputation. We will continue with medical management. 8. Deep venous thrombosis prophylaxis. We will use Lovenox. DISPOSITION AND LENGTH OF STAY: Less than 2 days. Symptomatic medication will be provided. History and physical exam as well as management were discussed with Dr. Valentin. JILLIAN
[2017-03-22 06:53] LABS: Band 4 % (5-11); Lymphocytes 39 % (21-51); MDiff Complete? YES; Mean Corpuscular HGB CONC 31.9 g/dL (32.0-36.0); Mean Corpuscular Hemoglobin 32.1 pg (27.0-31.0); Mean Platelet Volume 9.6 fL (7.4-10.4); Monocytes 4 % (0-10); Neutrophil 53 % (42-75); Platelet Count 232 thou/uL (130-400); RBC Distribution Width 15.3 % (11.5-14.5); Red Blood Cell (RBC) Count 4.03 mill/uL (4.20-5.40); White Blood Cell (WBC) Count 2.5 thou/uL (4.8-10.8)
--- NOTE | 2017-03-22 08:26 | PDOC.FM ---
- Subjective Subjective: Patient doing well this morning. Reports that her SOB has improved some this AM and denies any chest pain or leg swelling. - Objective MAR Reviewed: Yes Vital Signs & Weight: Vital Signs (12 hours) Temp Pulse Resp BP BP BP BP 03/22/17 08:16 97.5 F L 03/22/17 07:56 96.0 F L 69 18 135/71 03/22/17 07:31 68 16 03/22/17 04:00 97.4 F L 60 20 131/78 03/22/17 01:30 03/21/17 23:48 61 22 H 131/77 03/21/17 21:31 92 18 03/21/17 20:28 98.0 F 92 20 151/85 H 135/85 03/21/17 20:26 148/79 H BP Pulse Ox 03/22/17 08:16 03/22/17 07:56 100 03/22/17 07:31 96 03/22/17 04:00 94 L 03/22/17 01:30 97 03/21/17 23:48 97 03/21/17 21:31 97 03/21/17 20:28 148/79 H 98 03/21/17 20:26 Weight Weight 68.538 kg I&O: 03/21/17 03/22/17 03/23/17 06:59 06:59 06:59 Output Total 240 Balance -240 Result Diagrams: 03/22/17 05:12 03/22/17 05:12 <Luanne Oconnor - Last Filed: 03/22/17 08:24> - Objective Vital Signs & Weight: Vital Signs (12 hours) Temp Pulse Resp BP Pulse Ox 03/22/17 08:54 71 03/22/17 08:16 97.5 F L 03/22/17 07:56 96.0 F L 69 18 135/71 100 03/22/17 07:31 68 16 96 03/22/17 04:00 97.4 F L 60 20 131/78 94 L 03/22/17 01:30 97 03/21/17 23:48 61 22 H 131/77 97 Weight Weight 68.538 kg I&O: 03/21/17 03/22/17 03/23/17 06:59 06:59 06:59 Output Total 240 Balance -240 Result Diagrams: 03/22/17 05:12 03/22/17 05:12 <Aaron Valentin Bala - Last Filed: 03/22/17 11:04> Phys Exam - Physical Examination Constitutional: NAD HEENT: moist MMs Respiratory: wheezing present rales in bilateral bases Cardiovascular: RRR, no significant murmur, no rub Gastrointestinal: soft, non-tender, no distention, positive bowel sounds Musculoskeletal: no edema, pulses present Neurological: non-focal, moves all 4 limbs Psychiatric: normal affect, A&O x 3 <Luanne Oconnor - Last Filed: 03/22/17 08:24> Dx/Plan (1) Acute on chronic systolic (congestive) heart failure Code(s): I50.23 - ACUTE ON CHRONIC SYSTOLIC (CONGESTIVE) HEART FAILURE Status : Chronic (2) Non compliance w medication regimen Code(s): Z91.14 - PATIENT'S OTHER NONCOMPLIANCE WITH MEDICATION REGIMEN Status : Acute (3) CKD (chronic kidney disease) stage 3, GFR 30-59 ml/min Code(s): N18.3 - CHRONIC KIDNEY DISEASE, STAGE 3 (MODERATE) Status: Chronic (4) COPD (chronic obstructive pulmonary disease) Status: Chronic (5) HLD (hyperlipidemia) Code(s): E78.5 - HYPERLIPIDEMIA, UNSPECIFIED Status: Chronic (6) HTN (hypertension) Code(s): I10 - ESSENTIAL (PRIMARY) HYPERTENSION Status: Chronic QualifierTitle: Hypertension type: essential hypertension - Plan Plan: 1. HFrEF exacerbation - EF 10-15% Patient was recently hospitalized for this and reported that she did not take any of her medications after discharge. BNP 4540, patient's BNP is routinely elevated in 3000s-4000s CXR showed cardiomegaly with no acute cardiopulmonary process -Lasix 40mg IV BID -Continue home Carvedilol, Lisinopril, Imdur, and Digoxin -Strict I/O's, Fluid Restrict 1800mL/day, Daily weights -Consult heart failure team -Consult palliative care, patient used to be on hospice, but is not anymore - would benefit from Palliative care services -Will wean off O2 as tolerated 2. COPD Patient has some wheezing on exam, her COPD could be contributing. -Will schedule duonebs -If patient's breathing status does not improve, will consider treatment for COPD exacerbation 3. Acute Gastroenteritis Patient had complaints of gastroenteritis on admission, but was not complaining of any N/V/D/abd pain this AM. -Zofran prn -Diet as tolerated 4. HTN -continue home meds 5. Bipolar/Anxiety/Depression -continue home meds 6. PVD Patient has AKA on left, continue medical management <Luanne Oconnor - Last Filed: 03/22/17 08:24> Attending Addendum - Attending Addendum I personally evaluated the patient and discussed the management with Dr. Oconnor. I agree with the History, Examination, Assessment and Plan documented above with any addition or exceptions noted below. Patient feeling somewhat better today. She is medically noncompliant and had return to hospital due to not taking her medications. She has minimal evidence of volume overload after resuming diuretics. She has mild wheezes, steroids have been restarted. If off O2 this afternoon and at baseline, likely discharge. <Aaron Valentin - Last Filed: 03/22/17 11:04>
[2017-03-22] MEDS: clonazePAM 1 MG TAB PO SCH (08:53)
[2017-03-22] MEDS: Furosemide 40 MG TAB PO SCH ×2 (08:53→13:43)
[2017-03-22] MEDS: Bupropion 150 MG SR TAB PO SCH (08:53)
[2017-03-22] MEDS: Carvedilol 6.25 MG TAB PO SCH (08:54)
[2017-03-22] MEDS ORDERED: Nicotine 21 MG PATCH TD SCH (09:00)
[2017-03-22] MEDS ORDERED: predniSONE 20 MG TAB PO SCH (09:00)
[2017-03-22] MEDS ORDERED: Enoxaparin Sodium 40 MG/0.4 ML SYRINGE SC SCH (09:00)
[2017-03-22] MEDS ORDERED: Digoxin 0.125 MG TAB PO SCH (09:00)
[2017-03-22] MEDS ORDERED: Lisinopril 20 MG TAB PO SCH (09:00)
[2017-03-22 12:12] LABS: HIV (1/2) Antibody/Antigen Non-Reactive (NonReactive); HIV 1/2 INDEX 0.21 S/CO (<1.00)
[2017-03-22 15:46] VITALS: BP 118/56; TEMP 97.4
--- NOTE | 2017-03-23 20:16 | DIS-2 ---
DATE OF ADMISSION: 03/21/2017 DATE OF DISCHARGE: 03/22/2017 ADMITTING RESIDENT: Maya Castro M.D. DISCHARGE RESIDENT: Luanne Oconnor M.D. ADMITTING ATTENDING: Aaron Valentin M.D. DISCHARGE ATTENDING: Aaron Valentin M.D. CONSULTATIONS: None. PROCEDURES: None. IMAGING DATA: Chest x-ray showed cardiomegaly without evidence of acute cardiopulmonary process. PRIMARY DIAGNOSES: 1. Acute exacerbation of heart failure with reduced ejection fraction. 2. Chronic obstructive pulmonary disease. 3. Acute gastroenteritis. SECONDARY DIAGNOSES: 1. Hypertension. 2. Bipolar. 3. Peripheral vascular disease. 4. Tobacco abuse. DISCHARGE MEDICATIONS: 1. Aspirin 81 mg p.o. daily. 2. Tessalon Perles 100 mg p.o. t.i.d. p.r.n. cough. 3. Bupropion 150 mg p.o. b.i.d. 4. Carvedilol 12.5 mg p.o. b.i.d. 5. Clonazepam 1 mg p.o. b.i.d. 6. Digoxin 125 mcg p.o. daily. 7. Colace 50 mg p.o. daily. 8. Lasix 40 mg p.o. q.a.m. 9. Lasix 40 mg p.o. at bedtime. 10. Isosorbide mononitrate 30 mg p.o. daily. 11. Lisinopril 20 mg p.o. daily. 12. Nitrofurantoin 100 mg p.o. b.i.d. 13. Potassium chloride 8 mEq p.o. daily. 14. Prednisone 40 mg p.o. q.a.m. with meals. DISCONTINUED MEDICATIONS: None. HISTORY OF PRESENT ILLNESS AND HOSPITAL COURSE: This is a 61-year-old female with a past medical his tory of CHF, ejection fraction of 10% to 15% and COPD who presented with a 1 day history of nausea, v omiting and abdominal pain. The patient was recently discharged from the hospital about 10 days ago for CHF and COPD exacerbation, did not pickers material handlers any of her medicines after she left the hospital and r eports that she has been very short of breath over the past few days and has noticed increased fluid in her lower extremities. The patient initially had a BNP of 4540. The patient was presumed to be i n a CHF exacerbation due to medication noncompliance. The patient was treated with IV Lasix and diur esed well. She was also put on fluid restriction and her home medications were continued which she w as likely not taking. The patient improved significantly after about 24 hours of treatment with this . She also was reporting symptoms of gastroenteritis, so she was treated symptomatically with Zofran and was given a diet as tolerated. IV fluids were not given as the patient did not appear to be deh ydrated and due to her severe CHF. The patient was counseled extensively on the importance of medica tion compliance and the patient was discharged home with medications for heart failure and her COPD. DISPOSITION: Stable. DISCHARGE INSTRUCTIONS: 1. Location: Home. 2. Diet: Heart healthy. 3. Activity: As tolerated. 4. Follow up with [facility] within 7 days.
--- NOTE | 2017-03-24 14:57 | EKG ---
Test Reason : Blood Pressure : / mmHG Vent. Rate : 088 BPM Atrial Rate : 088 BPM P-R Int : 098 ms QRS Dur : 142 ms QT Int : 438 ms P-R-T Axes : 037 -45 107 degrees QTc Int : 529 ms Atrial-sensed ventricular-paced rhythm with frequent Premature ventricular complexes Abnormal ECG Confirmed by JOSELIN WHITMAN DO ([id number]), editor managing director BERNICE LE ([id number]) on 03/24/2017 2:56:54 PM Referred By: Confirmed By:JOSELIN WHITMAN DO
== END 2017-03-22 18:54 | disposition home or self-care (01) ==
LOC: ERS 11:58 → SURG B 13:50 → 2SW 15:51
PROVIDERS: ADMIT Student in an Organized Health Care Education/Training Program; ATTEND Student in an Organized Health Care Education/Training Program
DX: I11.0 Hypertensive heart disease with heart failure (principal); I50.23 Acute on chronic systolic (congestive) heart failure; I25.10 Atherosclerotic heart disease of native coronary artery without angina pectoris; J44.9 Chronic obstructive pulmonary disease, unspecified; K52.9 Noninfective gastroenteritis and colitis, unspecified; I73.9 Peripheral vascular disease, unspecified; E78.5 Hyperlipidemia, unspecified; M19.90 Unspecified osteoarthritis, unspecified site; F31.9 Bipolar disorder, unspecified; F41.9 Anxiety disorder, unspecified; F17.210 Nicotine dependence, cigarettes, uncomplicated; E66.9 Obesity, unspecified; Z68.29 Body mass index [BMI] 29.0-29.9, adult; Z79.899 Other long term (current) drug therapy; Z89.612 Acquired absence of left leg above knee; Z90.710 Acquired absence of both cervix and uterus; Z95.810 Presence of automatic (implantable) cardiac defibrillator; Z98.890 Other specified postprocedural states
CPT/HCPCS: 36415; 71045; 80048; 80053; 82553; 83880; 84484; 85025; 85610; 85730; 87389; 93005; 94640; 96365; 96372; 96375; G0378; J0456; J0696; J1650; J1940; J2930; J7050; J7620

== ENCOUNTER 2017-03-25 00:28 | Inpatient (IN) | payer SELFPAY ==
[2017-03-25] MEDS ORDERED: Senokot 8.6 MG TAB PO PRN (06:16)
[2017-03-25] MEDS ORDERED: Benzonatate 100 MG CAP PO PRN (06:24)
[2017-03-25] MEDS ORDERED: Albuterol Sulfate 1.25 MG/3 ML NEB NEB PRN (06:25)
[2017-03-25] MEDS ORDERED: Furosemide 40 MG/4 ML VIAL ONE ×2 (07:17→14:21)
--- NOTE | 2017-03-25 07:20 | PDOC.EVN ---
Attending Addendum - Attending Addendum I personally evaluated the patient and discussed the management with Dr. Jamil Henderson. I agree with the History, Examination, Assessment and Plan documented in her H& P with any addition or exceptions noted below. Patient with history of CHFrEF, COPD, HTN, and medication noncompliance admitted here after worsening shortness of breath on exertion and at rest. Patient has 2 recent hospitalizations with subsequent bouncebacks due to non picking up her medications at the pharmacy. Hospice care was previously providing her meds until she revoked her care there. Now, she has Medicaid pending but no current funds to brass pickler rx. She complains of progressive symptoms since her last discharge. Denies chest pains, palpitations. Some worsening LE edema. Her exam is significant for no respiratory distress, mild rales in lung bases, and mild LE edema. Labs are overall stable from her last admission with a slight bump in her chronically elevated BNP. I believe her EF is 10-15% per last hospitalization. She will be admitted for CHF with exacerbation due to medication noncompliance. Resume home meds and diurese. Strict I/O. Consult Palliative care as well as CM to help arrange for financial assistance with outpatient medications as otherwise she will continue to revert to hospital for her medications.
[2017-03-25 07:28] LABS: Cardiac Risk 6.5 (Less than 4.5)
[2017-03-25 07:33] LABS: Troponin I 0.082 ng/mL (< 0.028)
[2017-03-25] MEDS ORDERED: clonazePAM 1 MG TAB ONE (08:25)
[2017-03-25] MEDS ORDERED: Digoxin 0.125 MG TAB ONE ×2 (09:24→09:44)
[2017-03-25] MEDS ORDERED: Enoxaparin Sodium 40 MG/0.4 ML SYRINGE ONE (09:24)
[2017-03-25] MEDS: Mometasone/Formoterol 120 PUFF INHALER INH SCH ×2 (10:22→18:58)
--- NOTE | 2017-03-25 15:04 | HP-2 ---
CODE STATUS: DNR. PRIMARY CARE PHYSICIAN: Unfunded. ATTENDING PHYSICIAN: Dr. Aaron Valentin. RESIDENT: Dr. Carolyn Henderson. HISTORIAN: Patient. CHIEF COMPLAINT: Shortness of breath. HISTORY OF PRESENT ILLNESS: This is a 61-year-old female with a past medical history of systolic and diastolic CHF and COPD, who presents from [place] with a chief complaint of shortness of breath and a BNP of 5986. Patient's BNP 2 days prior was around 4500. The patient states that she cannot afford her medications when she was discharged from the hospital 2 days ago. She is now with her and her son and has a provider who helps her at home because she does not have insurance. She drinks 3 cups of water a day and three cups of sodas per day. She is also complaining of chest pain, nausea, vomiting, and diaphoresis as well. In the ER, she received Lasix 40 IV, and DuoNebs 3 mL. PAST MEDICAL HISTORY: 1. Hypertension. 2. Bipolar. 3. PVD. 4. Tobacco abuse. 5. Medication noncompliance. 6. CAD. 7. CHF. 8. Systolic and diastolic. 9. COPD. 10. Pacemaker placed. 11. Left above the knee amputation. 12. History of ventricular tachycardia. 13. Chronic kidney disease. PAST SURGICAL HISTORY: 1. Pacemaker placement in 12/2016. 2. Echo completed in 12/2016 showed an ejection fraction of 10% to 15%, diastolic dysfunction, mitral regurg and mild tricuspid regurgitation. ALLERGIES: No known drug allergies. MEDICATIONS: 1. Bupropion 150 mg p.o. b.i.d. 2. Carvedilol 12.5 mg p.o. b.i.d. 3. Clonazepam 1 mg p.o. b.i.d. 4. Digoxin 125 mg b.i.d. 5. Colace 50 mg p.o. daily. 6. Lasix 40 mg p.o. b.i.d. 7. Isosorbide mononitrate 30 mg p.o. daily. 8. Lisinopril 20 mg daily. 9. Potassium chloride 8 mg daily. 10. Aspirin 81 mg daily. SOCIAL HISTORY: Denies tobacco, alcohol, and drug use. REVIEW OF SYSTEMS: GENERAL: Denies fevers or chills. EYES: No vision changes or eye pain. ENT: Denies nasal congestion or rhinorrhea. RESPIRATORY: Denies cough, congestion. Endorses shortness of breath. CARDIOVASCULAR: Endorses chest pain and diaphoresis. GI: Endorses nausea and vomiting. Denies diarrhea and constipation. GENITOURINARY: Denies incontinence, dysuria. SKIN: Denies rashes or lesions. MUSCULOSKELETAL: Denies pain or tenderness. NEURO: Denies weakness, numbness. PSYCHIATRIC: Anxiety, depression. PHYSICAL EXAMINATION: VITAL SIGNS: Blood pressure 145/91, pulse is 79, respiratory rate 26, T-max 98.7, pulse ox 77% on room air, increased to 90% on 3 liters. GENERAL: Alert and oriented x3, in no apparent distress. Obese. Difficult to elicit a good history from the patient. EYES: PERRLA, EOMI. NECK: Supple, no lymphadenopathy, or thyromegaly. CARDIOVASCULAR: Regular rate and rhythm. No murmur, rub or gallop. She has no murmur, S3 gallop present. 1+ pedal pulses. RESPIRATORY: Normal effort, no retractions. Crackles in the left lower lung base. ABDOMEN: Soft, obese, nontender. Hypoactive bowel sounds. EXTREMITIES: No edema. MUSCULOSKELETAL: The patient has a left utxje-avx-eloa amputation. NEUROLOGIC: No focal deficits. GCS 15. Cranial nerves II-XII intact. LABORATORY DATA: CBC 7.0, 12,8, 41.8, 207. CMP 138, 3.7, 104, 24, 21.3, glucose 138. GFR of 48. AST, ALT, alkaline phosphatase 31, 22, 130. Calcium 8.9, total protein 7.1, albumin 3.4. Lactic acid 1.8. BNP 5186, on 03/21/2017 BNP was 4540. Troponin 0.09. EKG normal sinus rhythm, paced LAD LVH, rate of 78. ASSESSMENT AND PLAN: This is a 61-year-old female with a past medical history of systolic and diastolic congestive heart failure, admitted for acute hypoxic respiratory failure secondary to systolic and diastolic congestive heart failure. 1. Acute hypoxic respiratory failure 2/2 systolic and diastolic congestive heart failure. We will admit the patient to tele obs. Patient does not have insurance. She cannot afford her medications when she was discharged from the hospital last time. She is a high risk for being a bounce back as there is difficulty in helping her to get her medications so that she can be compliant. We will continue to provide continuous pulse ox and with O2 goal 92%. We will order a case management consult to see if she can be assisted financially in any way. 2. Congestive heart failure exacerbation. We will start the patient on 40 mg IV of Lasix b.i.d. We will also restart her home medication. Counseled her on medication compliance and dietary compliance. I have ordered a lipid profile. We will start a statin likely a high intensity. We also order a director of casework services consult to help with financial assistance. 2. Hypertension. We will restart home meds, lisinopril. 3. Chronic obstructive pulmonary disease. The patient is never going to be on any home meds for chronic obstructive pulmonary disease. We will start her on Dulera here. Flonase for allergy like symptoms. Provide albuterol and DuoNebs p.r.n. 4. Bipolar disorder. We will restart the patient's home medications. DISPOSITION/LENGTH OF HOSPITAL STAY: 1-2 days. Symptomatic medications will be provided. History and physical exam as well management discussed with Dr. Aaron Valentin. JILLIAN
[2017-03-25] MEDS: Bupropion 150 MG SR TAB PO SCH ×2 (18:14→21:46)
[2017-03-25] MEDS: Carvedilol 25 MG TAB PO SCH ×2 (18:14→21:47)
[2017-03-25] MEDS: Digoxin 0.125 MG TAB PO SCH (18:14)
[2017-03-25] MEDS: clonazePAM 1 MG TAB PO SCH ×2 (18:14→21:47)
[2017-03-25] MEDS: Potassium Chloride 8 MEQ TAB PO SCH (18:14)
[2017-03-25] MEDS: Lisinopril 20 MG TAB PO SCH (18:15)
[2017-03-25] MEDS: Enoxaparin Sodium 40 MG/0.4 ML SYRINGE SC SCH (18:15)
[2017-03-25] MEDS: Docusate 100 MG CAP PO SCH ×2 (18:15→21:47)
[2017-03-25] MEDS: Furosemide 40 MG/4 ML VIAL SLOW IVP SCH (18:16)
[2017-03-25] MEDS ORDERED: FLU VACC QS2017-18 36 mo. & older 0.5 ML SYRINGE IM ONE (21:00)
[2017-03-25] MEDS: Atorvastatin Calcium 40 MG TAB PO SCH (21:47)
[2017-03-26 05:13] LABS: #Eosinphils 0.1 thou/uL (0.0-0.7); #Monocytes 0.5 thou/uL (0.11-0.59); %Basophils 0.6 % (0.0-1.0); %Eosinophils 2.3 % (0.0-10.0); %Lymphocytes 28.5 % (21.0-51.0); %Monocytes 13.6 % (0.0-10.0); Hemoglobin 11.9 g/dL (12.0-16.0); Mean Corpuscular Hemoglobin 31.5 pg (27.0-31.0); Mean Platelet Volume 9.4 fL (7.4-10.4); Platelet Count 201 thou/uL (130-400); RBC Distribution Width 15.1 % (11.5-14.5); Red Blood Cell (RBC) Count 3.77 mill/uL (4.20-5.40); White Blood Cell (WBC) Count 3.6 thou/uL (4.8-10.8)
[2017-03-26 05:42] LABS: Anion Gap 13 mmol/L (10-20); BUN (Urea Nitrogen) 17 mg/dL (9.8-20.1); Calc. Creatinine Clearance 51 mL/min (70-130); Calcium 8.4 mg/dL (7.8-10.44); Carbon Dioxide 27 mmol/L (23-31); Chloride 101 mmol/L (98-107); Estimated GFR-MDRD 59; Glucose 85 mg/dL (80-115); Potassium 3.6 mmol/L (3.5-5.1); Sodium 137 mmol/L (136-145)
[2017-03-26 05:43] LABS: Digoxin 0.36 ng/mL (0.8-2.0)
[2017-03-26] MEDS: Furosemide 40 MG/4 ML VIAL SLOW IVP SCH (06:57)
[2017-03-26] MEDS: Mometasone/Formoterol 120 PUFF INHALER INH SCH ×2 (07:27→19:47)
[2017-03-26 08:00] VITALS: BMI 27.5
[2017-03-26] MEDS: Potassium Chloride 8 MEQ TAB PO SCH (08:35)
[2017-03-26] MEDS: Digoxin 0.125 MG TAB PO SCH (08:36)
[2017-03-26] MEDS: Bupropion 150 MG SR TAB PO SCH ×2 (08:36→20:43)
[2017-03-26] MEDS: clonazePAM 1 MG TAB PO SCH ×2 (08:36→20:43)
[2017-03-26] MEDS: Carvedilol 25 MG TAB PO SCH ×2 (08:36→20:43)
[2017-03-26] MEDS: Enoxaparin Sodium 40 MG/0.4 ML SYRINGE SC SCH (08:37)
[2017-03-26] MEDS: Docusate 100 MG CAP PO SCH ×2 (08:37→20:43)
[2017-03-26] MEDS: Lisinopril 20 MG TAB PO SCH (08:37)
--- NOTE | 2017-03-26 09:18 | PDOC.FM ---
- Subjective Subjective: Patient is lying comfortably in bed. Reports she feels much improved from yesterday. No acute events overnight. - Objective MAR Reviewed: Yes Vital Signs & Weight: Vital Signs (12 hours) Temp Pulse Resp BP Pulse Ox 03/26/17 08:03 98.3 F 68 16 133/66 92 L 03/26/17 07:27 68 16 94 L 03/26/17 04:00 99.0 F 62 16 131/66 96 03/26/17 00:00 99.6 F 72 16 145/77 H 95 Weight Admit Weight 62.709 kg Weight 63.866 kg Result Diagrams: 03/26/17 04:09 03/26/17 04:09 Phys Exam - Physical Examination Constitutional: NAD HEENT: moist MMs, sclera anicteric Wheezing throughout Cardiovascular: RRR Systolic murmur Gastrointestinal: soft, non-tender Musculoskeletal: pulses present trace edema Neurological: moves all 4 limbs Lymphatic: no nodes Psychiatric: A&O x 3 Dx/Plan (1) Acute on chronic systolic (congestive) heart failure Code(s): I50.23 - ACUTE ON CHRONIC SYSTOLIC (CONGESTIVE) HEART FAILURE Status : Chronic (2) COPD (chronic obstructive pulmonary disease) Status: Chronic (3) HLD (hyperlipidemia) Code(s): E78.5 - HYPERLIPIDEMIA, UNSPECIFIED Status: Chronic (4) HTN (hypertension) Code(s): I10 - ESSENTIAL (PRIMARY) HYPERTENSION Status: Chronic Qualifiers: Hypertension type: essential hypertension Qualified Code(s): I10 - Essential (primary) hypertension (5) Physical deconditioning Code(s): R53.81 - OTHER [place] Status: Chronic (6) Bipolar disorder Code(s): F31.9 - BIPOLAR DISORDER, UNSPECIFIED Status: Acute (7) Tobacco abuse Code(s): Z72.0 - TOBACCO USE Status: Acute - Plan Plan: Acute on Chronic systolic CHF Exacerbation - patient continues to have bounceback admissions due to medication noncompliance - BNP significantly decreased from 5900 to 800 today with IV Lasix - Transition to home PO Lasix - continue home digoxin, carvedilol, Imdur, ASA - consult CM for resources to obtain home medications - Last EF 10-15% - Palliative care consult COPD - Continue Dulera - Duonebs q4h prn Physical Deconditioning - consult PT Tobacco Abuse - counseled on cessation HTN - continue home Lisinopril Bipolar disorder - Continue Buproprion Uninsured Status - consult CM - Patient working on filling out medicaid application
[2017-03-26] MEDS: Furosemide 40 MG TAB PO SCH (14:19)
[2017-03-26] MEDS: Atorvastatin Calcium 40 MG TAB PO SCH (20:43)
--- NOTE | 2017-03-27 06:42 | PDOC.FM ---
- Subjective Subjective: Patient resting comfortably in bed. Reports back pain and trouble getting up out of bed but otherwise feels better. Denies CP, SOB. Spoke with patient in depth about roadblocks to obtaining medications and care for her outside of the hospital. Patient expresses interest in hospice care. Addressed code status of DNR going forward and what hospice care means in depth. Patient reported understanding. - Objective MAR Reviewed: Yes Vital Signs & Weight: Vital Signs (12 hours) Temp Pulse Resp BP BP Pulse Ox 03/27/17 03:11 99.3 F 73 20 138/75 92 L 03/26/17 20:05 97.6 F 66 18 144/80 H 95 03/26/17 19:47 67 18 95 Weight Admit Weight 62.709 kg Weight 62.686 kg I&O: 03/25/17 03/26/17 03/27/17 06:59 06:59 06:59 Intake Total 1400 Balance 1400 Result Diagrams: 03/26/17 04:09 03/26/17 04:09 <Leonora Adames - Last Filed: 03/27/17 09:22> - Objective Vital Signs & Weight: Vital Signs (12 hours) Temp Pulse Resp BP BP Pulse Ox 03/27/17 10:35 76 16 99 03/27/17 10:15 137/83 03/27/17 10:13 73 03/27/17 08:00 98.6 F 73 18 137/83 96 03/27/17 03:11 99.3 F 73 20 138/75 92 L Weight Admit Weight 62.709 kg Weight 62.686 kg I&O: 03/26/17 03/27/17 03/28/17 06:59 06:59 06:59 Intake Total 1400 Balance 1400 Result Diagrams: 03/27/17 08:36 03/27/17 08:36 <Parker Read - Last Filed: 03/27/17 10:58> Phys Exam - Physical Examination Constitutional: NAD HEENT: moist MMs Neck: no nodes, no JVD expiratory wheezing throughout systolic murmur Gastrointestinal: soft, non-tender Musculoskeletal: no edema Neurological: non-focal, moves all 4 limbs Psychiatric: A&O x 3 Skin: cap refill <2 seconds <Leonora Adames - Last Filed: 03/27/17 09:22> Dx/Plan (1) Acute on chronic systolic (congestive) heart failure Code(s): I50.23 - ACUTE ON CHRONIC SYSTOLIC (CONGESTIVE) HEART FAILURE Status : Chronic (2) COPD (chronic obstructive pulmonary disease) Status: Chronic (3) HLD (hyperlipidemia) Code(s): E78.5 - HYPERLIPIDEMIA, UNSPECIFIED Status: Chronic (4) HTN (hypertension) Code(s): I10 - ESSENTIAL (PRIMARY) HYPERTENSION Status: Chronic QualifierTitle: Hypertension type: essential hypertension Qualified Code( s): I10 - Essential (primary) hypertension (5) Physical deconditioning Code(s): R53.81 - OTHER MALAISE Status: Chronic (6) Bipolar disorder Code(s): F31.9 - BIPOLAR DISORDER, UNSPECIFIED Status: Acute (7) Tobacco abuse Code(s): Z72.0 - TOBACCO USE Status: Acute - Plan Plan: Acute on Chronic systolic CHF Exacerbation - patient continues to have bounceback admissions due to medication noncompliance - BNP significantly decreased from 5900 to 800 with IV Lasix, now on home PO lasix and symptomatically improved - continue home digoxin, carvedilol, Imdur, ASA - consult CM for resources to obtain home medications - Last EF 10-15% - Palliative care consult - Hospice consult - change code status to DNR COPD - Continue Dulera - Duonebs q4h prn Physical Deconditioning - consult PT Tobacco Abuse - counseled on cessation HTN - continue home Lisinopril Bipolar disorder - Continue Buproprion Uninsured Status - consult CM - Patient working on filling out medicaid application <Leonora Adames - Last Filed: 03/27/17 09:22> Attending Addendum - Attending Addendum I personally evaluated the patient and discussed the management with Dr. Adames I agree with the History, Examination, Assessment and Plan documented above with any addition or exceptions noted below. Pt has decided she wants to be DNR and wants to discuss hospice. She is deconditioned but has been refusing PT. We will try to get her set up with home medications through hospice since she has not been able to obtain these on her own due to financial issues which has lead to multiple recent hospitalizations. <Parker Read - Last Filed: 03/27/17 10:58>
[2017-03-27] MEDS: Mometasone/Formoterol 120 PUFF INHALER INH SCH (07:37)
[2017-03-27 09:36] LABS: Anion Gap 10 mmol/L (10-20); BUN (Urea Nitrogen) 14 mg/dL (9.8-20.1); Calc. Creatinine Clearance 51 mL/min (70-130); Calcium 9.2 mg/dL (7.8-10.44); Carbon Dioxide 31 mmol/L (23-31); Chloride 100 mmol/L (98-107); Estimated GFR-MDRD 59; Glucose 92 mg/dL (80-115); Potassium 3.9 mmol/L (3.5-5.1); Sodium 137 mmol/L (136-145)
[2017-03-27] MEDS: Enoxaparin Sodium 40 MG/0.4 ML SYRINGE SC SCH (10:11)
[2017-03-27 10:13] LABS: Band 12 % (5-11); Eosinophils 5 % (0-10); Hemoglobin 12.6 g/dL (12.0-16.0); Lymphocytes 28 % (21-51); MDiff Complete? YES; Mean Corpuscular Hemoglobin 31.6 pg (27.0-31.0); Mean Platelet Volume 9.6 fL (7.4-10.4); Monocytes 20 % (0-10); Neutrophil 35 % (42-75); Platelet Count 225 thou/uL (130-400); White Blood Cell (WBC) Count 3.4 thou/uL (4.8-10.8)
[2017-03-27] MEDS: Digoxin 0.125 MG TAB PO SCH (10:13)
[2017-03-27] MEDS: clonazePAM 1 MG TAB PO SCH (10:15)
[2017-03-27] MEDS: Bupropion 150 MG SR TAB PO SCH (10:15)
[2017-03-27] MEDS: Potassium Chloride 8 MEQ TAB PO SCH (10:15)
[2017-03-27] MEDS: Docusate 100 MG CAP PO SCH (10:15)
[2017-03-27] MEDS: Lisinopril 20 MG TAB PO SCH (10:15)
[2017-03-27] MEDS: Carvedilol 25 MG TAB PO SCH (10:16)
[2017-03-27] MEDS: Furosemide 40 MG TAB PO SCH ×2 (10:16→15:13)
[2017-03-27 12:19] VITALS: TEMP 98
[2017-03-27 13:27] VITALS: BP 131/72
[2017-03-27] MEDS ORDERED: Acetaminophen 325 MG TAB PO SCH (15:15)
== END 2017-03-27 15:52 | disposition hospice, home (50) | DRG 291 ==
LOC: ERS 00:28 → ERHOLD 01:44 → 2NO 17:15
PROVIDERS: ADMIT Student in an Organized Health Care Education/Training Program; ATTEND Student in an Organized Health Care Education/Training Program
DX: I13.0 Hypertensive heart and chronic kidney disease with heart failure and stage 1 through stage 4 chronic kidney disease, or unspecified chronic kidney disease (principal); J96.01 Acute respiratory failure with hypoxia; I50.43 Acute on chronic combined systolic (congestive) and diastolic (congestive) heart failure; Z51.5 Encounter for palliative care; Z66 Do not resuscitate; F31.9 Bipolar disorder, unspecified; I73.9 Peripheral vascular disease, unspecified; I25.10 Atherosclerotic heart disease of native coronary artery without angina pectoris; J44.9 Chronic obstructive pulmonary disease, unspecified; N18.9 Chronic kidney disease, unspecified; F17.210 Nicotine dependence, cigarettes, uncomplicated; Z79.82 Long term (current) use of aspirin; Z79.899 Other long term (current) drug therapy; Z95.0 Presence of cardiac pacemaker; Z89.612 Acquired absence of left leg above knee; Z91.11 Patient's noncompliance with dietary regimen
CPT/HCPCS: 36415; 80048; 80061; 80162; 83735; 83880; 85025; 90471; 90682; 93798; 94640; 96372; 96374; G0008; G8978-GP-CK; G8979-GP-CI; J1650; J1940; J7620; Q2036

== ENCOUNTER 2017-04-10 11:06 | Inpatient (IN) | payer SELFPAY ==
--- NOTE | 2017-04-10 12:06 | CT ---
CT BRAIN WITHOUT CONTRAST: HISTORY: Altered mental status. The patient was found at home by her family members. COMPARISON: 12/30/2016 TECHNIQUE: Multiple contiguous axial images were obtained in a CT brain without contrast. FINDINGS: There are scattered hypodensities in the subcortical and periventricular white matter, likely seconda ry to small vessel ischemic disease. No large confluent infarction is seen. There is no evidence of hydrocephalus, intracranial hemorrhage, or extraaxial fluid collection. The calvarium and overlying soft tissues are unremarkable. The visualized paranasal sinuses and mast oid air cells are well aerated. IMPRESSION: 1. No evidence of acute intracranial abnormality. 2. Small vessel ischemic disease. POS: [facility]
[2017-04-10 12:24] LABS: Bilirubin Small (Negative); Blood, Urine Large (Negative); Clarity CLOUDY (Clear); Glucose, Urine (Dipstick) Negative (Negative); Leukocyte Negative (Negative); Nitrite Positive (Negative); Protein, Urine (Dipstick) 100 mg/dL (Neg-Trace)
[2017-04-10 12:26] LABS: Specific Gravity, Urine 1.021 (1.002-1.036)
[2017-04-10 12:29] LABS: Bacteria/HPF 3+ HPF (None Seen); Hyaline Casts/LPF NONE SEEN LPF (0-3 Hyaline); RBC/HPF GREATER THAN 50-TNTC HPF (0-3); WBC/HPF 0-3 HPF (0-3)
[2017-04-10 12:34] LABS: Amphetamine Not Detected (NotDetected); Barbiturates Screen Not Detected (NotDetected); Benzodiazepine Screen Not Detected (NotDetected); Cocaine Metabolite Screen Not Detected (NotDetected); Medtox Control Line Valid? VALID (VALID); Medtox Reader # READER 1; Methadone Not Detected (NotDetected); Methamphetamine Not Detected (NotDetected); Opiate Screen Detected (NotDetected); Oxycodone Screen Not Detected (NotDetected); Phencyclidine (PCP) Not Detected (NotDetected); THC/Cannabinoid Screen Not Detected (NotDetected); Tricyclic Screen Not Detected (NotDetected)
[2017-04-10] MEDS ORDERED: Meropenem 1 GM in Sterile Water 20 ML SLOW IVP SCH (13:00)
[2017-04-10 13:08] LABS: #Lymphocytes 1.2 thou/uL (1.20-3.40); #Monocytes 0.9 thou/uL (0.11-0.59); #Neutrophils 7.2 thou/uL (1.40-6.50); %Basophils 0.2 % (0.0-1.0); %Eosinophils 0.2 % (0.0-10.0); %Lymphocytes 13.1 % (21.0-51.0); %Monocytes 9.4 % (0.0-10.0); %Neutrophils 77.1 % (42.0-75.0); Hemoglobin 17.6 g/dL (12.0-16.0); Mean Corpuscular HGB CONC 30.9 g/dL (32.0-36.0); Mean Corpuscular Hemoglobin 31.1 pg (27.0-31.0); Platelet Count 264 thou/uL (130-400); RBC Distribution Width 15.1 % (11.5-14.5); Red Blood Cell (RBC) Count 5.66 mill/uL (4.20-5.40); White Blood Cell (WBC) Count 9.3 thou/uL (4.8-10.8)
[2017-04-10 13:14] LABS: ALT (SGPT) 22 U/L (8-55); AST (SGOT) 56 U/L (5-34); Albumin 3.8 g/dL (3.4-4.8); Alkaline Phosphatase 121 U/L (40-150); Anion Gap 19 mmol/L (10-20); BUN (Urea Nitrogen) 62 mg/dL (9.8-20.1); Bilirubin, Total 0.8 mg/dL (0.2-1.2); CK (CPK) 1332 U/L (29-168); Calc. Creatinine Clearance 0 mL/min (70-130); Calcium 9.9 mg/dL (7.8-10.44); Carbon Dioxide 21 mmol/L (23-31); Chloride 109 mmol/L (98-107); Estimated GFR-MDRD 12; Globulin 5.4 g/dL (2.4-3.5); Glucose 131 mg/dL (80-115); Lipase 12 U/L (8-78); Potassium 5.6 mmol/L (3.5-5.1); Protein, Total 9.2 g/dL (6.0-8.3); Sodium 143 mmol/L (136-145)
[2017-04-10 13:26] LABS: CKMB 3.4 ng/mL (0-6.6)
[2017-04-10 13:32] LABS: Troponin I 0.721 ng/mL (< 0.028)
[2017-04-10 13:36] LABS: Acetaminophen Less than 6.0 mcg/mL (10.0-30.0); Alcohol Less than 10 mg/dL (Less than 10); Salicylate Less than 8.0 mg/dL (15.0-30.0)
[2017-04-10 13:43] LABS: INR-International Normal Ratio 1.3; PTT 29.5 SEC (22.9-36.1); Prothrombin Time 16.5 SEC (12.0-14.7)
[2017-04-10] MEDS ORDERED: Aspirin 300 MG Suppository ONE (14:04)
[2017-04-10] MEDS ORDERED: Enoxaparin Sodium 80 MG/0.8 ML SYRINGE ONE (14:29)
[2017-04-10 17:07] LABS: Digoxin 1.27 ng/mL (0.8-2.0)
[2017-04-10 17:13] LABS: Critical Call Chem Troponin I RESULT DECREASING; Troponin I 0.555 ng/mL (< 0.028)
--- NOTE | 2017-04-10 18:45 | RAD ---
PORTABLE UPRIGHT FRONTAL CHEST RADIOGRAPH 04/10/17 COMPARISON: 03/24/17 HISTORY: Altered mental status. FINDINGS: Stable multilead AICD noted. Stable prominence of the cardiac silhouette present. Mild increased vane ear interstitial density noted. No pneumothorax, pleural fluid, focal consolidation or alveolar edema . IMPRESSION: No acute findings - stable appearance of the chest. POS: [facility]
[2017-04-10 20:11] LABS: Troponin I 0.584 ng/mL (< 0.028)
[2017-04-10] MEDS ORDERED: Ondansetron ODT 4 MG TAB SL PRN (20:25)
[2017-04-10] MEDS ORDERED: Sodium Chloride 0.9% 1,000 ML IV SCH (20:25)
[2017-04-10] MEDS ORDERED: Ondansetron HCl/PF 4 MG/2 ML Vial IVP PRN ×2 (20:25→20:38)
--- NOTE | 2017-04-10 20:33 | HP-2 ---
DATE OF ADMISSION: 04/10/2017 CODE STATUS: Chemical code and wants to be intubated, but no chest compressions. PRIMARY CARE PHYSICIAN: Dandre thorpe. ATTENDING: Lore Blackwood M.D. RESIDENT: Spencer Roberts, PGY1 CHIEF COMPLAINT: Confusion/weakness. HISTORY OF PRESENT ILLNESS: This is a 61-year-old -[place] Citizen female that comes in after being just confused and weak at this morning around 9:30 or 10:00 , said that she was not responding to family members and not getting up. The patient was only alert and oriented x1. She is very confused in the room, unable to obtain history from her. In talking with son, he said that over the last week she has been continually, progressively getting weak, has not been eating much, only had applesauce and mashed potatoes, not had much of an appetite for the last 2 days, that he has been manually having to get her up and help her. She does have an echo from 12/2016 that showed an EF of 10%-15%. PAST MEDICAL HISTORY: COPD, CHF with pacemaker defibrillator, hypertension, bipolar, peripheral vascular disease, COPD, and history of ventricular tachycardia, and chronic kidney disease. PAST SURGICAL HISTORY: She has a pacemaker placement and a left [id number] amputation. ALLERGIES: No known drug allergies. MEDICATIONS: Include bupropion 150 mg p.o. b.i.d., carvedilol 12.5 mg p.o. b.i.d., clonazepam 1 mg 2 times daily, digoxin 125 mg one time daily, Colace 50 mg p.o. daily, Lasix 40 mg p.o. b.i.d., isosorbide mononitrate 30 mg daily, potassium chloride 8 mEq daily, and aspirin 81 mg daily. She also reports that she takes [place] at home, but did not have it with her. SOCIAL HISTORY: Denies any tobacco, alcohol, or drug use. REVIEW OF SYSTEMS: Unable to obtain due to confusion. PHYSICAL EXAMINATION: VITAL SIGNS: Blood pressure is 121/65, pulse 75, respirations 16, temperature 98, pulse ox 95% on 2 liters. Current weight is 56 kilograms. GENERAL: She is alert and oriented x1, only to person. She is well-developed, well-nourished, a little obese, not appropriately interactive. EYES: Conjunctivae within normal limits. Has dry mucous membranes. NECK: Supple, no thyromegaly, no lymphadenopathy. CARDIOVASCULAR: Regular rate and rhythm, no murmurs, no gallops. Radial pulses , pedal pulses palpated bilaterally. RESPIRATORY: Normal breathing effort. No retractions. LUNGS: Clear to auscultation bilaterally. SKIN: Her right intact leg is very cool to the touch, but weak pulses are noted. ABDOMEN: Soft, nontender to palpation. Bowel sounds are normal in all 4 quadrants. No mass or distention. EXTREMITIES: She does have some mild edema and no pitting edema. MUSCULOSKELETAL: Structure in normal limits. She does not have full range of motion. She has 3-4/5 strength. NEUROLOGIC: No focal neuro deficits. PSYCHIATRIC: Not appropriate. LABORATORY DATA: White blood cell count is 9.3, hemoglobin is 17.6, hematocrit is 57.0, MCV is 101, 77.1% neutrophils, 7.2 number of neutrophils. Sodium is 143, potassium is 5.6, chloride 109, bicarb 21, BUN is 62, creatinine is 4.48, glucose is 131, calcium is 9.9, total protein 9.2, albumin is 3.8, total bilirubin is 0.8, AST is 56, ALT is 22, alkaline phosphatase is 121, PTT 29.5. PT is 16.5, INR is 1.3. TSH is 0.3050. BNP 733.5, lactic acid 2.0. Flu A and B negative. UA had large blood, 100 protein, nitrite positive, ketones trace, glucose negative, rbc 50, 0 to 3 white blood cells, 3+ bacteria and 4-6 squamous epithelial cells. EKG was paced. No ST elevation. IMAGING: CT head, no evidence of acute intracranial abnormality, small vessel ischemic disease. ASSESSMENT AND PLAN: 1. Acute on chronic kidney disease, 4.48 is elevated from her baseline and previous visits around 1. She has received 2 liters of normal saline bolus in the ER. We will continue intravenous fluids at a rate of 100. Gentle fluids. We will monitor I's and O's. We will recheck BMP in the morning. We will need to check her, make sure she does not get fluid overload. We will be holding her Lasix at this time. 2. Altered mental status possibly secondary to urinary tract infection versus dehydration. Again, we are giving her the fluids. We will give her Rocephin for IV antibiotics. Did get meropenem and Levaquin in the ER, but will switch to Rocephin. Get urine cultures, blood cultures pending. 3. Dehydration. Continue IV fluids. 4. History of chronic combined congestive heart failure. We will monitor for fluid overload, does not seem to be acutely fluid overload. Her BNP is actually improving at 733 from previous visits where it was up in the 1000s. 5. Urinary tract infection. Urine culture pending. Continue IV Rocephin. 6. Deconditioning. Patient's family discussed that they think she is ready for placement in a correction. We will consult case management. We will consult to help place in the correction around the [facility]. 7. Rhabdomyolysis. CK is 1332. Again, getting fluids were continued. Check CK in the morning. 8. Elevated troponin likely secondary to some rhabdo to demand ischemia. It is elevated 0.7-1 elevated from previous visit. She is not complaining of any chest pain at this time. We will continue to monitor tropes and trend them and see where to go. Cardiology, Dr. Oliver has been consulted. We will follow his recommendations. Again, we are holding his Lasix, but have started all her other chronic heart failure meds at this time. 9. Deep venous thrombosis prophylaxis. We also have her back to the plan for elevated troponin. We do have her on therapeutic Lovenox at this time until Dr. Oliver has seen her. [facility]ESEE HOSPITALDenise
[2017-04-10] MEDS ORDERED: Acetaminophen 650 MG Suppository PR PRN (20:38)
[2017-04-10] MEDS ORDERED: Bisacodyl 5 MG TAB PO PRN (20:38)
[2017-04-10] MEDS ORDERED: cefTRIAXone\\ROCEPHIN 1 GM in Sodium Chloride 0.9% 100 ML IVPB SCH (20:38)
[2017-04-10] MEDS ORDERED: Ondansetron ODT 4 MG TAB PO PRN (20:38)
[2017-04-10] MEDS ORDERED: Benzonatate 100 MG CAP PO PRN (20:38)
[2017-04-10] MEDS ORDERED: Bisacodyl 10 MG SUPP PR PRN (20:38)
[2017-04-10 21:16] LABS: Free T4 (Free Thyroxine) 1.52 ng/dL (0.70-1.48)
[2017-04-10] MEDS: clonazePAM 1 MG TAB PO SCH (21:55)
[2017-04-10] MEDS: Bupropion 150 MG SR TAB PO SCH (21:55)
[2017-04-10] MEDS: Carvedilol 25 MG TAB PO SCH (21:55)
[2017-04-10] MEDS: cefTRIAXone\\ROCEPHIN 1 GM, Syringe 0.4 ML in Sterile Water 9.6 ML SLOW IVP SCH (21:59)
[2017-04-10] MEDS: Sodium Chloride 0.9% 1,000 ML IV SCH (22:00)
[2017-04-10] MEDS ORDERED: Dextrose 50% Abboject 50 ML SYRINGE ONE (22:09)
--- NOTE | 2017-04-11 05:52 | PDOC.FM ---
- Subjective Subjective: Pt is only A&Ox1. Unable to obtain subjective from her this morning. Says she is thirsty and having pain in her remaining leg. - Objective MAR Reviewed: Yes Vital Signs & Weight: Vital Signs (12 hours) Temp Pulse Resp BP Pulse Ox 04/11/17 03:44 98.3 F 81 21 H 148/71 H 100 04/10/17 20:45 98.3 F 69 18 95 04/10/17 20:25 98.3 F 69 18 163/70 H 93 L Weight Weight 61.235 kg Result Diagrams: 04/11/17 05:37 04/11/17 05:37 Radiology Reviewed by me: Yes <Spencer Roberts - Last Filed: 04/11/17 08:23> - Objective Vital Signs & Weight: Vital Signs (12 hours) Temp Pulse Pulse Pulse Resp BP BP 04/11/17 13:05 85 75 167/81 H 164/78 H 04/11/17 12:00 97.8 F 74 17 04/11/17 10:50 71 71 141/65 H 156/74 H 04/11/17 08:00 98.8 F 87 18 04/11/17 03:44 98.3 F 81 21 H BP BP Pulse Ox Pulse Ox Pulse Ox 04/11/17 13:05 91 L 91 L 04/11/17 12:00 169/81 H 93 L 04/11/17 10:50 04/11/17 08:00 169/79 H 100 04/11/17 03:44 148/71 H 100 Weight Admit Weight 61.235 kg Weight 61.235 kg Result Diagrams: 04/11/17 05:37 04/11/17 05:37 <Nasrin Mariee - Last Filed: 04/11/17 15:28> Phys Exam - Physical Examination Constitutional: NAD HEENT: PERRLA, sclera anicteric Mucous membranes still dry Neck: no nodes, supple Respiratory: clear to auscultation bilateral Cardiovascular: RRR, no significant murmur, no rub Gastrointestinal: soft, non-tender, no distention, positive bowel sounds Musculoskeletal: no edema, pulses present LE chill Neurological: non-focal Lymphatic: no nodes Deviation from normal: A&Ox1 Skin: no rash, normal turgor <Spencer Roberts - Last Filed: 04/11/17 08:23> Dx/Plan (1) Altered mental status Code(s): R41.82 - ALTERED MENTAL STATUS, UNSPECIFIED Status: Acute (2) UTI (urinary tract infection) Status: Acute (3) HERNESTO (acute kidney injury) Code(s): N17.9 - ACUTE KIDNEY FAILURE, UNSPECIFIED Status: Resolved (4) COPD (chronic obstructive pulmonary disease) Status: Chronic (5) Chronic systolic CHF (congestive heart failure) Code(s): I50.22 - CHRONIC SYSTOLIC (CONGESTIVE) HEART FAILURE Status: Chronic (6) HLD (hyperlipidemia) Code(s): E78.5 - HYPERLIPIDEMIA, UNSPECIFIED Status: Chronic (7) HTN (hypertension) Code(s): I10 - ESSENTIAL (PRIMARY) HYPERTENSION Status: Chronic (8) PVD (peripheral vascular disease) Code(s): I73.9 - PERIPHERAL VASCULAR DISEASE, UNSPECIFIED Status: Chronic (9) Elevated troponin Code(s): R74.8 - ABNORMAL LEVELS OF OTHER SERUM ENZYMES Status: Acute (10) Physical deconditioning Code(s): R53.81 - OTHER MALAISE Status: Chronic (11) Rhabdomyolysis Code(s): M62.82 - RHABDOMYOLYSIS Status: Resolved (12) Moderate dehydration Code(s): E86.0 - DEHYDRATION Status: Resolved (13) Bradycardia Code(s): R00.1 - BRADYCARDIA, UNSPECIFIED Status: Chronic - Plan Plan: AMS 2/2 UTI, Dehydration -Urine cx pending. Tx with IV rocephin at this time. -Pt A&Ox1 upon admission. Will continue to assess for improvement. -Pt had not been eating much per report of son. Appears hemoconcentrated based on CBC. Giving gentle fluids at this time. HERNESTO on CKD -Pt Cr elevated at 4.48. GFR 12 -Giving gentle IV fluids at this time due to CHF. Will assess BMP Rhabdomyolysis -Pt had not been getting up out of bed the last few days. CK 1322, Gentle IV fluids, recheck CK today for improvement Physical Deconditioning -Pt not able to help herself or assist herself at home. -Family discussed they have home health at home but it is not enough. Said they are ready to begin exploring correction placement around [place] -CM consulted for correction assessment and placement -PT/OT consulted for assessment CHF (EF 10-15% 01/05) -Pt has end stage heart failure with EF of 10-15% on past echo in 01/05. -Pt not complaining of SOB. Pt does not appear to be acutely fluid overloaded. BNP is actually lower than recent past hospitilizations. -Continue home meds. Holding lasix. Will continue to monitor for signs of fluid overload as we are giving her fluids at this time Elevated Troponin -Continued to trend. Likely due to demand ischemia from dehydration, elevated due to HERNESTO and also rhabdo -Cardiology Consulted-Dr. Oliver- Follow recs COPD -Duonebs q4hr prn if needed. No sign of exacerbation at this time. On O2 2L at this time. HTN -continue home meds HLD -continue home meds PVD -Extremity cool to touch but has weak pulse. Will continue to watch and monitor <Spencer Roberts - Last Filed: 04/11/17 08:23> Attending Addendum - Attending Addendum Date/Time: 04/11/17 8927 I personally evaluated the patient and discussed the management with Dr. Roberts. I agree with the History, Examination, Assessment and Plan documented above with any addition or exceptions noted below. Continuing gentle iv fluids for HERNESTO which is improving. Pt oriented to self only. Will consult case mgmt for placement. Monitor for fluid overload. <Nasrin Mariee - Last Filed: 04/11/17 15:28>
[2017-04-11 06:13] LABS: #Eosinphils 0.1 thou/uL (0.0-0.7); #Lymphocytes 1.1 thou/uL (1.20-3.40); #Neutrophils 6.4 thou/uL (1.40-6.50); %Basophils 0.5 % (0.0-1.0); %Eosinophils 0.6 % (0.0-10.0); %Lymphocytes 13.2 % (21.0-51.0); %Monocytes 12.1 % (0.0-10.0); %Neutrophils 73.6 % (42.0-75.0); Hemoglobin 15.1 g/dL (12.0-16.0); Mean Corpuscular HGB CONC 31.3 g/dL (32.0-36.0); Mean Platelet Volume 9.8 fL (7.4-10.4); Platelet Count 243 thou/uL (130-400); RBC Distribution Width 14.9 % (11.5-14.5); Red Blood Cell (RBC) Count 4.72 mill/uL (4.20-5.40); White Blood Cell (WBC) Count 8.6 thou/uL (4.8-10.8)
[2017-04-11 06:25] LABS: Anion Gap 14 mmol/L (10-20); BUN (Urea Nitrogen) 51 mg/dL (9.8-20.1); CK (CPK) 959 U/L (29-168); Calc. Creatinine Clearance 22 mL/min (70-130); Calcium 9.1 mg/dL (7.8-10.44); Carbon Dioxide 20 mmol/L (23-31); Chloride 115 mmol/L (98-107); Estimated GFR-MDRD 23; Glucose 84 mg/dL (80-115); Potassium 4.3 mmol/L (3.5-5.1); Sodium 145 mmol/L (136-145)
[2017-04-11 06:29] LABS: CKMB 2.1 ng/mL (0-6.6)
[2017-04-11 06:32] LABS: Critical Call Chem Troponin I RESULT DECREASING; Troponin I 0.356 ng/mL (< 0.028)
[2017-04-11] MEDS: Sodium Chloride 0.9% 1,000 ML IV SCH ×2 (07:27→16:38)
[2017-04-11] MEDS ORDERED: Enoxaparin Sodium 40 MG/0.4 ML SYRINGE SC SCH (09:00)
[2017-04-11] MEDS ORDERED: FLU VACC QS2017-18 36 mo. & older 0.5 ML SYRINGE IM ONE (09:00)
[2017-04-11] MEDS: traMADol HCl 50 MG TAB PO PRN ×2 (09:16→20:28)
[2017-04-11] MEDS: Bupropion 150 MG SR TAB PO SCH ×2 (09:16→20:27)
[2017-04-11] MEDS: clonazePAM 1 MG TAB PO SCH ×2 (09:16→20:29)
[2017-04-11] MEDS: Carvedilol 25 MG TAB PO SCH ×2 (09:16→20:28)
[2017-04-11] MEDS: Enoxaparin Sodium 80 MG/0.8 ML SYRINGE SC SCH (09:17)
[2017-04-11] MEDS: Digoxin 0.125 MG TAB PO SCH (09:17)
[2017-04-11] MEDS ORDERED: Dextrose 50% Abboject 50 ML SYRINGE ONE (14:44)
--- NOTE | 2017-04-11 15:45 | EKG ---
Test Reason : Blood Pressure : / mmHG Vent. Rate : 085 BPM Atrial Rate : 085 BPM P-R Int : 114 ms QRS Dur : 142 ms QT Int : 388 ms P-R-T Axes : 056 -58 106 degrees QTc Int : 461 ms Electronic ventricular pacemaker When compared with ECG of 10-APR-2017 11:35, (Unconfirmed) Vent. rate has decreased BY 5 BPM Confirmed by ROCKY MCCARTY ([id number]) on 04/11/2017 3:45:04 PM Referred By: APPLE BLANDON Confirmed By:ROCKY MCCARTY
[2017-04-11] MEDS: cefTRIAXone\\ROCEPHIN 1 GM, Syringe 0.4 ML in Sterile Water 9.6 ML SLOW IVP SCH (20:29)
--- NOTE | 2017-04-11 21:18 | CON ---
DATE OF CONSULTATION: 04/11/2017 HISTORY OF PRESENT ILLNESS: Verenice Davidson is a 61-year-old black female with a longstanding history of ischemic cardiomyopathy with ejection fraction of approximately 15%, probably due to hypertensive cardiovascular disease and coronary artery disease. She apparently underwent cardiac catheterization at [facility] in 2001 or 2002 according to the patient. This demonstrated an occluded vessel. She never underwent any intervention and has been treated medically. In 10/2009, she had a nuclear scan in [place] showing moderate sized area of scarring of the proximal to distal inferior wall, but no ischemia. She had multiple hospitalizations with frequent exacerbations of her congestive heart failure. There was also was a question regarding compliance of her medications. She was cared for by [facility] for a period of time until they stopped using this hospital. I then assumed her care in 11/2011 , although she has never come to the office for followup despite multiple appointments being scheduled. In 11/2011, she underwent placement of a single chamber ICD. In 02/2012, she was admitted with heart failure due to dietary noncompliance. She also ran out of her Lasix for one week prior to admission. She has had multiple other admissions for heart failure. Usually this relates to noncompliance with salt intake or with running out of her medications. In 12/2016, she presented with coughing and increased shortness of breath. She also was extremely bradycardic with heart rates falling below 40 per minute and ventricular pacing from her ICD. She denied any chest discomfort. Echocardiogram revealed severe left ventricular dysfunction with ejection fraction of 10-15% with evidence for diastolic dysfunction, defibrillator lead in the right ventricle, moderately enlarged left atrium, mildly enlarged right atrium, mild to moderate mitral regurgitation, mitral annular calcification and mild tricuspid regurgitation. With intermittent ventricular pacing, Electrophysiology was requested to see her and upgrade her device to a biventricular dual chamber defibrillator. Her device was upgraded on 2016. After upgrading her device, she did feel stronger. She now is admitted from home due to being somewhat unresponsive, not responded to family members, not getting up. She denies any chest discomfort or shortness of breath to me. PAST MEDICAL HISTORY: Coronary artery disease, hypertension, hyperlipidemia, severe ischemic cardiomyopathy, obesity, COPD, peripheral vascular disease, chronic kidney disease. OPERATIONS: Single chamber ICD placement and then in 12/2016 this was upgraded to a biventricular pacemaker, left [id number]-csz-[id number] amputation, hysterectomy, right knee surgery, and breast biopsy. MEDICATIONS: At home include albuterol nebs, p.r.n. aspirin 325 daily, Tessalon 100 t.i.d. p.r.n., carvedilol 12.5 b.i.d., Klonopin 1 mg b.i.d., digoxin 0.125 daily, Lasix 40 b.i.d., DuoNebs p.r.n., isosorbide mononitrate 30 daily, KCl 20 mEq daily, Senokot 2 tablets p.o. p.r.n., Dulera inhaler 2 puffs b.i.d. ALLERGIES: None. SOCIAL HISTORY: She continues to smoke occasionally. She had smoked up to 3 packs per day in the past. No alcohol. She also abused cocaine previously. FAMILY HISTORY: Negative for myocardial infarction. REVIEW OF SYSTEMS: A 12 point review of systems otherwise unremarkable. PHYSICAL EXAMINATION: VITAL SIGNS: 162/77, pulse 83. HEENT: PERRL. NECK: Supple. LUNGS: Clear. CARDIAC: S1 and S2 are normal, without any S3 or S4. There is a 1/6 systolic murmur along the left sternal border. ABDOMEN: Normal bowel sounds, without tenderness or organomegaly. EXTREMITIES: Revealed no clubbing, cyanosis or edema on the right. On the left , there is [id number] amputation. NEUROLOGIC: Patient is somewhat confused. LABORATORY: EKG reveals ventricular pacing. Hemoglobin 15.1, hematocrit 48.2, white count 8600, platelets 243,000. INR 1.3. Sodium 145, potassium 4.3, chloride 115, carbon dioxide 20, BUN 51, creatinine 2.55. CK 959, CK-MB 2.1, troponin I 0.721. IMPRESSION: 1. Mental status changes. 2. Severe ischemic cardiomyopathy with ejection fraction of 10%-15%. 3. Status post upgrade to biventricular implantable cardioverter defibrillator. 4. Hypertension. 5. Hypercholesterolemia. 6. Smoker, chronic obstructive pulmonary disease. 7. History of nonsustained ventricular tachycardia. In 08/2016, she had up to 8 episodes per day. 8. Cocaine abuse in the past. 9. History of noncompliance. 10. Chronic kidney disease. 11. Questionable ST elevation myocardial infarction versus demand ischemia and elevated troponin I from her renal insufficiency. PLAN: I would be very hesitant to give consideration to perform any type of further cardiac evaluation in this lady with chronic kidney disease and ejection fraction of only 10%-15%. She will continue to be treated medically. Her ICD will be interrogated to check her OptiVol. MTDD
[2017-04-12] MEDS: Sodium Chloride 0.9% 1,000 ML IV SCH ×3 (03:00→22:58)
--- NOTE | 2017-04-12 06:28 | PDOC.FM ---
- Subjective Subjective: Pt still A&Ox1. Not able to obtain any accurate hx. Pt did not complain of anything to me at this time. - Objective MAR Reviewed: Yes Vital Signs & Weight: Vital Signs (12 hours) Temp Pulse Resp BP Pulse Ox 04/12/17 04:00 98.1 F 69 18 167/81 H 93 L 04/12/17 00:00 98.1 F 72 20 132/68 98 04/11/17 19:10 99.4 F 85 18 189/101 H 97 Weight Admit Weight 61.235 kg Weight 66.723 kg I&O: 04/10/17 04/11/17 04/12/17 06:59 06:59 06:59 Intake Total 2940 Balance 2940 Result Diagrams: 04/12/17 06:44 04/12/17 06:44 EKG Reviewed by me: Yes (Possible ST elevation) <Spencer Roberts - Last Filed: 04/12/17 08:22> - Objective Vital Signs & Weight: Vital Signs (12 hours) Temp Pulse Pulse Pulse Resp BP BP 04/12/17 16:00 97.0 F L 62 17 04/12/17 12:00 98.5 F 63 16 04/12/17 08:46 70 70 185/94 H 150/78 H 04/12/17 08:00 97.0 F L 71 17 04/12/17 07:52 97.0 F L 71 17 BP Pulse Ox Pulse Ox Pulse Ox 04/12/17 16:00 171/84 H 97 04/12/17 12:00 164/79 H 93 L 04/12/17 08:46 95 93 L 04/12/17 08:00 04/12/17 07:52 165/82 H 94 L Weight Admit Weight 61.235 kg Weight 66.723 kg I&O: 04/11/17 04/12/17 04/13/17 06:59 06:59 06:59 Intake Total 2940 Balance 2940 Result Diagrams: 04/12/17 06:44 04/12/17 06:44 <Nasrin Mariee - Last Filed: 04/12/17 18:25> Phys Exam - Physical Examination Constitutional: NAD HEENT: PERRLA, oral pharynx no lesions Neck: no nodes, supple, full ROM Respiratory: no wheezing, no rales, no rhonchi, clear to auscultation bilateral Cardiovascular: RRR, no significant murmur, no rub Gastrointestinal: soft, non-tender, no distention, positive bowel sounds Musculoskeletal: no edema, pulses present Pain on palpation of R. leg. Caused her to yell in pain Neurological: non-focal Lymphatic: no nodes Deviation from normal: A&Ox1 Skin: no rash, normal turgor <KlecanSpencer - Last Filed: 04/12/17 08:22> Dx/Plan (1) Altered mental status Code(s): R41.82 - ALTERED MENTAL STATUS, UNSPECIFIED Status: Acute (2) UTI (urinary tract infection) Status: Acute (3) HERNESTO (acute kidney injury) Code(s): N17.9 - ACUTE KIDNEY FAILURE, UNSPECIFIED Status: Resolved (4) COPD (chronic obstructive pulmonary disease) Status: Chronic (5) Chronic systolic CHF (congestive heart failure) Code(s): I50.22 - CHRONIC SYSTOLIC (CONGESTIVE) HEART FAILURE Status: Chronic (6) HLD (hyperlipidemia) Code(s): E78.5 - HYPERLIPIDEMIA, UNSPECIFIED Status: Chronic (7) HTN (hypertension) Code(s): I10 - ESSENTIAL (PRIMARY) HYPERTENSION Status: Chronic (8) PVD (peripheral vascular disease) Code(s): I73.9 - PERIPHERAL VASCULAR DISEASE, UNSPECIFIED Status: Chronic (9) Elevated troponin Code(s): R74.8 - ABNORMAL LEVELS OF OTHER SERUM ENZYMES Status: Acute (10) Physical deconditioning Code(s): R53.81 - OTHER MALAISE Status: Chronic (11) Rhabdomyolysis Code(s): M62.82 - RHABDOMYOLYSIS Status: Resolved (12) Moderate dehydration Code(s): E86.0 - DEHYDRATION Status: Resolved (13) Bradycardia Code(s): R00.1 - BRADYCARDIA, UNSPECIFIED Status: Chronic - Plan Plan: AMS 2/2 UTI, Dehydration -Urine cx pending. Tx with IV rocephin at this time. -Pt A&Ox1 upon admission. Will continue to assess for improvement. Still A&Ox1. Not shown much improvement. -Pt had not been eating much per report of son. Appears hemoconcentrated based on CBC. Giving gentle fluids at this time. -NS@100mls/hr HERNESTO on CKD -Pt Cr 4.46->2.23->1.46. - -Giving gentle IV fluids at this time due to CHF. Will assess BMP. -continuing to improve. May hold on fluids for short period Rhabdomyolysis -Pt had not been getting up out of bed the last few days. CK 1322->900, Gentle IV fluids. Improved at this time Physical Deconditioning -Pt not able to help herself or assist herself at home. -Family discussed they have home health at home but it is not enough. Said they are ready to begin exploring detention placement around [place] -CM consulted for detention assessment and placement -PT/OT consulted for assessment- recommends SNU placement CHF (EF 10-15% 01/05) -Pt has end stage heart failure with EF of 10-15% on past echo in 01/05. -Pt not complaining of SOB. Pt does not appear to be acutely fluid overloaded. BNP is actually lower than recent past hospitilizations. -Continue home meds. Holding lasix. Will continue to monitor for signs of fluid overload as we are giving her fluids at this time -Cardiology consulted- Dr. Frank Assess defribilator to make sure functioning properly Elevated Troponin -Continued to trend. Likely due to demand ischemia from dehydration, elevated due to HERNESTO and also rhabdo -Cardiology Consulted-Dr. Frank- follow recs STEMI vs Demand vs Kidney dz -recommends medical management -On therapeutic lovenox COPD -Duonebs q4hr prn if needed. No sign of exacerbation at this time. On O2 2L at this time. HTN -continue home meds HLD -continue home meds PVD -Extremity cool to touch but has weak pulse. Will continue to watch and monitor Having some pain in the leg to palpation. Probably due to poor circulation <Spencer Roberts - Last Filed: 04/12/17 08:22> Attending Addendum - Attending Addendum Date/Time: 04/12/171823 I personally evaluated the patient and discussed the management with Dr. Roberts. I agree with the History, Examination, Assessment and Plan documented above with any addition or exceptions noted below. Patient RLE is cold but pulses are palpable. Patient is having severe pain in the leg. Will get arterial doppler to evaluate blood flow. Case management is looking at placement. <Nasrin Mariee - Last Filed: 04/12/17 18:25>
[2017-04-12 07:01] LABS: #Eosinphils 0.3 thou/uL (0.0-0.7); #Lymphocytes 1.3 thou/uL (1.20-3.40); #Monocytes 0.7 thou/uL (0.11-0.59); #Neutrophils 3.1 thou/uL (1.40-6.50); %Basophils 0.4 % (0.0-1.0); %Eosinophils 5.8 % (0.0-10.0); %Monocytes 13.1 % (0.0-10.0); %Neutrophils 56.7 % (42.0-75.0); Hemoglobin 14.5 g/dL (12.0-16.0); Mean Corpuscular HGB CONC 31.6 g/dL (32.0-36.0); Mean Corpuscular Hemoglobin 31.8 pg (27.0-31.0); Mean Platelet Volume 9.6 fL (7.4-10.4); Platelet Count 221 thou/uL (130-400); RBC Distribution Width 14.6 % (11.5-14.5); Red Blood Cell (RBC) Count 4.57 mill/uL (4.20-5.40); White Blood Cell (WBC) Count 5.5 thou/uL (4.8-10.8)
[2017-04-12 07:17] LABS: Anion Gap 10 mmol/L (10-20); BUN (Urea Nitrogen) 26 mg/dL (9.8-20.1); Calc. Creatinine Clearance 42 mL/min (70-130); Calcium 8.8 mg/dL (7.8-10.44); Carbon Dioxide 21 mmol/L (23-31); Chloride 114 mmol/L (98-107); Estimated GFR-MDRD 44; Glucose 92 mg/dL (80-115); Potassium 4.3 mmol/L (3.5-5.1); Sodium 141 mmol/L (136-145)
[2017-04-12] MEDS ORDERED: Carvedilol 25 MG TAB PO SCH ×3 (08:28→17:00)
[2017-04-12] MEDS: Digoxin 0.125 MG TAB PO SCH (09:33)
[2017-04-12] MEDS: clonazePAM 1 MG TAB PO SCH ×2 (09:34→21:36)
[2017-04-12] MEDS: Bupropion 150 MG SR TAB PO SCH ×2 (09:34→21:36)
[2017-04-12] MEDS: Enoxaparin Sodium 80 MG/0.8 ML SYRINGE SC SCH (09:34)
[2017-04-12] MEDS: Carvedilol 25 MG TAB PO SCH (18:00)
--- NOTE | 2017-04-12 19:18 | CON ---
DATE OF CONSULTATION: 04/12/2017 HISTORY OF PRESENT ILLNESS: This is a 61-year-old lady that I had previously seen for a couple of ye ars in 2012 and 2013 with severe peripheral vascular disease and continued smoking history. At that time, she underwent several interventions to the left popliteal and pedal vessels to maintain limb sa lvage. She did not return for followup and has had multiple admissions at [facility] since then. 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 In an y event, she was admitted this week with altered mental status of short duration. It is unclear as t o the etiology of this. She was noted to have a cool right lower extremity with tenderness to palpat ion. Although the history is very sketchy talking to her and her , she has been complaining o f right leg weakness and pain for many months. There is a little documentation and multiple past adm issions in regards to her leg. On examination today, I am unable to palpate a right femoral pulse, w linda was present in the past. She has a high pitched Doppler signal in her right femoral artery and I do not appreciate any popliteal signal or pedal signals and she did have a posterior tibial signal several years ago. Her toes are pink with good capillary refill. She has no significant motor funct ion in her foot with minimal ankle movement. No dorsi or plantar flexion. She is slightly tender ov er the anterior compartment, but it is soft. CPKs were mildly elevated on this admission and I suspect at some point in the past she lost the circ ulation to her right leg, whether this was related to progression of her vascular disease or possible embolic event from her left ventricle is not clear. In any event, essentially she is unable to lift her legs off the bed or move her foot, has a nonfunctioning leg and see no reason for angiographic i ntervention at this point. Ultimately, she will require amputation of her leg and this may also be p roblematic due to poor circulation and wound healing issues. She does have severe cardiomyopathy and hospice probably should be a consideration.
[2017-04-12] MEDS: Acetaminophen 325 MG TAB PO PRN (22:09)
[2017-04-12] MEDS: traMADol HCl 50 MG TAB PO PRN (22:09)
[2017-04-12] MEDS: cefTRIAXone\\ROCEPHIN 1 GM, Syringe 0.4 ML in Sterile Water 9.6 ML SLOW IVP SCH (22:55)
[2017-04-13 05:34] LABS: Anion Gap 11 mmol/L (10-20); BUN (Urea Nitrogen) 18 mg/dL (9.8-20.1); Calc. Creatinine Clearance 51 mL/min (70-130); Carbon Dioxide 20 mmol/L (23-31); Chloride 113 mmol/L (98-107); Estimated GFR-MDRD 55; Glucose 77 mg/dL (80-115); Potassium 4.5 mmol/L (3.5-5.1); Sodium 139 mmol/L (136-145)
[2017-04-13 06:02] LABS: Band 4 % (5-11); Eosinophils 2 % (0-10); Lymphocytes 42 % (21-51); MDiff Complete? YES; Mean Corpuscular HGB CONC 30.4 g/dL (32.0-36.0); Mean Corpuscular Hemoglobin 31.1 pg (27.0-31.0); Mean Platelet Volume 9.6 fL (7.4-10.4); Monocytes 7 % (0-10); Neutrophil 45 % (42-75); PLT Morphology Comment Appears Adequate; Platelet Count 203 thou/uL (130-400); RBC Distribution Width 14.5 % (11.5-14.5); White Blood Cell (WBC) Count 4.6 thou/uL (4.8-10.8)
--- NOTE | 2017-04-13 06:29 | PDOC.FM ---
- Subjective Subjective: Pt A&Ox1. Only to person. Pt seems to be comfortable. Pt denies any pain at this time. in room. Discussed at length prognosis with patient's . Let him know about no blood flow in her R. leg. Discussed with him what Dr. Cool said. Said that she is not a good surgical canidate. Discussed with him how recommended care is Hospice. Told we would come back and talk later as well. Let him know thats about our only option at this time as she is a poor surgical canidate. - Objective MAR Reviewed: Yes Vital Signs & Weight: Vital Signs (12 hours) Temp Pulse Resp BP Pulse Ox 04/12/17 20:00 97.8 F 75 16 148/76 H 96 Weight Admit Weight 61.235 kg Weight 66.451 kg I&O: 04/11/17 04/12/17 04/13/17 06:59 06:59 06:59 Intake Total 2940 Balance 2940 Result Diagrams: 04/13/17 05:01 04/13/17 05:01 Radiology Reviewed by me: Yes <Spencer Roberts - Last Filed: 04/13/17 09:12> - Objective Vital Signs & Weight: Vital Signs (12 hours) Temp Pulse Resp Pulse Ox 04/13/17 09:27 75 04/13/17 08:00 97.2 F L 75 18 95 Weight Admit Weight 61.235 kg Weight 66.451 kg I&O: 04/12/17 04/13/17 04/14/17 06:59 06:59 06:59 Intake Total 2940 Balance 2940 Result Diagrams: 04/13/17 05:01 04/13/17 05:01 <Nasrin Mariee - Last Filed: 04/13/17 10:58> Phys Exam - Physical Examination Pt altered. Appears to be comfortable HEENT: moist MMs Neck: no nodes, supple, full ROM Respiratory: no wheezing mild rales Cardiovascular: RRR, no significant murmur, no rub Gastrointestinal: soft, non-tender, no distention, positive bowel sounds Musculoskeletal: no edema, pulses present weak pedal pulse palpated. No tibial pulses R. leg cool to touch Neurological: non-focal Lymphatic: no nodes Deviation from normal: A&Ox1 Skin: no rash, normal turgor <Spencer Roberts - Last Filed: 04/13/17 09:12> Dx/Plan (1) Altered mental status Code(s): R41.82 - ALTERED MENTAL STATUS, UNSPECIFIED Status: Acute (2) UTI (urinary tract infection) Status: Acute (3) HERNESTO (acute kidney injury) Code(s): N17.9 - ACUTE KIDNEY FAILURE, UNSPECIFIED Status: Resolved (4) COPD (chronic obstructive pulmonary disease) Status: Chronic (5) Chronic systolic CHF (congestive heart failure) Code(s): I50.22 - CHRONIC SYSTOLIC (CONGESTIVE) HEART FAILURE Status: Chronic (6) HLD (hyperlipidemia) Code(s): E78.5 - HYPERLIPIDEMIA, UNSPECIFIED Status: Chronic (7) HTN (hypertension) Code(s): I10 - ESSENTIAL (PRIMARY) HYPERTENSION Status: Chronic (8) PVD (peripheral vascular disease) Code(s): I73.9 - PERIPHERAL VASCULAR DISEASE, UNSPECIFIED Status: Chronic (9) Elevated troponin Code(s): R74.8 - ABNORMAL LEVELS OF OTHER SERUM ENZYMES Status: Acute (10) Physical deconditioning Code(s): R53.81 - OTHER MALAISE Status: Chronic (11) Rhabdomyolysis Code(s): M62.82 - RHABDOMYOLYSIS Status: Resolved (12) Moderate dehydration Code(s): E86.0 - DEHYDRATION Status: Resolved (13) Bradycardia Code(s): R00.1 - BRADYCARDIA, UNSPECIFIED Status: Chronic - Plan Plan: AMS 2/2 UTI, Dehydration -Urine cx pending-NGTD. Tx with IV rocephin at this time. -Pt A&Ox1 upon admission. Will continue to assess for improvement. Still A&Ox1. Not shown much improvement. -Pt had not been eating much per report of son. Appears hemoconcentrated based on CBC. Giving gentle fluids at this time. -NS@100mls/hr HERNESTO on CKD -Pt Cr 4.46->2.23->1.46. -1.1.9 -Giving gentle IV fluids at this time due to CHF. Will assess BMP. -continuing to improve. May hold on fluids for short period PVD -Extremity cool to touch but has weak pulse. Will continue to watch and monitor Having some pain in the leg to palpation. Probably due to poor circulation -Arterial Doppler 04/12- No flow past popliteal artery. -CV surgery consulted- Dr. Cool- will follow recs -Needs Leg amputated due to no blood flow but does not think good canidate due to heart function and poor healing due to blood flow -Recommends hospice Rhabdomyolysis -Pt had not been getting up out of bed the last few days. CK 1322->900, Gentle IV fluids. Improved at this time Physical Deconditioning -Pt not able to help herself or assist herself at home. -Family discussed they have home health at home but it is not enough. Said they are ready to begin exploring care home placement around [place] -CM consulted for care home assessment and placement -PT/OT consulted for assessment- recommends SNU placement CHF (EF 10-15% 01/05) -Pt has end stage heart failure with EF of 10-15% on past echo in 01/05. -Pt not complaining of SOB. Pt does not appear to be acutely fluid overloaded. BNP is actually lower than recent past hospitilizations. -Continue home meds. Holding lasix. Will continue to monitor for signs of fluid overload as we are giving her fluids at this time -Cardiology consulted- Dr. Frank Assess defribilator to make sure functioning properly Elevated Troponin -Continued to trend. Likely due to demand ischemia from dehydration, elevated due to HERNESTO and also rhabdo -Cardiology Consulted-Dr. Frank- follow recs STEMI vs Demand vs Kidney dz -recommends medical management -On therapeutic lovenox COPD -Duonebs q4hr prn if needed. No sign of exacerbation at this time. On O2 2L at this time. HTN -continue home meds HLD -continue home meds Case management consulted. Working on placement in [facility] with hospice. Pt is good hospice canidate at this time. Surgery is not recommended for PVD due to poor heart and weak healing. Pt likely needs hospice care. Discussed end of life care with in depth. said he will speak with hospice. Let him know all our options and pts prognosis. appears to be taking it in. Said i will come back and talk with him later. <Spencer Roberts - Last Filed: 04/13/17 09:12> Attending Addendum - Attending Addendum Date/Time: 04/13/17 [id number] I personally evaluated the patient and discussed the management with Dr. Roberts. I agree with the History, Examination, Assessment and Plan documented above with any addition or exceptions noted below. Patient is not a surgical candidate. She has a poor appetite, confusion is at baseline and would be appropriate for hospice. Will work with case mgmt on discharge planning. <Nasrin Mariee - Last Filed: 04/13/17 10:58>
[2017-04-13 09:09] VITALS: BMI 28.5
[2017-04-13] MEDS: Enoxaparin Sodium 80 MG/0.8 ML SYRINGE SC SCH (09:26)
[2017-04-13] MEDS: Digoxin 0.125 MG TAB PO SCH (09:27)
[2017-04-13] MEDS: Bupropion 150 MG SR TAB PO SCH ×2 (09:27→22:29)
[2017-04-13] MEDS: Carvedilol 25 MG TAB PO SCH ×2 (09:28→17:25)
[2017-04-13] MEDS: clonazePAM 1 MG TAB PO SCH ×2 (09:28→22:29)
[2017-04-13] MEDS: Acetaminophen 325 MG TAB PO PRN ×2 (12:34→22:29)
[2017-04-13] MEDS: traMADol HCl 50 MG TAB PO PRN ×2 (12:34→22:29)
[2017-04-13] MEDS: cefTRIAXone\\ROCEPHIN 1 GM, Syringe 0.4 ML in Sterile Water 9.6 ML SLOW IVP SCH (22:33)
[2017-04-14 06:58] LABS: Anion Gap 11 mmol/L (10-20); BUN (Urea Nitrogen) 16 mg/dL (9.8-20.1); Calc. Creatinine Clearance 50 mL/min (70-130); Calcium 9.2 mg/dL (7.8-10.44); Carbon Dioxide 25 mmol/L (23-31); Chloride 110 mmol/L (98-107); Estimated GFR-MDRD 55; Glucose 88 mg/dL (80-115); Potassium 4.2 mmol/L (3.5-5.1); Sodium 142 mmol/L (136-145)
--- NOTE | 2017-04-14 07:53 | PDOC.FM ---
- Subjective Subjective: Pt doing well over night with no acute events. She is at what appears to be her baseline A&O. Her only complaints today are R leg pain with motion - Objective Vital Signs & Weight: Weight Admit Weight 61.235 kg Weight 66.95 kg I&O: 04/13/17 04/14/17 04/15/17 06:59 06:59 06:59 Intake Total 600 Balance 600 Result Diagrams: 04/13/17 05:01 04/14/17 06:26 <Gregorio Chavez - Last Filed: 04/14/17 07:51> - Objective Vital Signs & Weight: Vital Signs (12 hours) Temp Pulse Resp BP Pulse Ox 04/14/17 09:18 74 04/14/17 07:40 99.0 F 65 17 164/90 H 100 Weight Admit Weight 61.235 kg Weight 66.95 kg I&O: 04/13/17 04/14/17 04/15/17 06:59 06:59 06:59 Intake Total 600 Balance 600 Result Diagrams: 04/13/17 05:01 04/14/17 06:26 <Nasrin Mariee - Last Filed: 04/14/17 11:34> Phys Exam - Physical Examination Constitutional: NAD HEENT: PERRLA, moist MMs Neck: no nodes Respiratory: clear to auscultation bilateral Cardiovascular: RRR, no significant murmur Gastrointestinal: soft, non-tender Musculoskeletal: no edema Pulses are not palpable on L LE. R BKA Psychiatric: normal affect Deviation from normal: A&O x2. Pt does not know year Skin: no rash <Gregorio Chavez - Last Filed: 04/14/17 07:51> Dx/Plan (1) Altered mental status Code(s): R41.82 - ALTERED MENTAL STATUS, UNSPECIFIED Status: Chronic (2) Elevated troponin Code(s): R74.8 - ABNORMAL LEVELS OF OTHER SERUM ENZYMES Status: Acute (3) UTI (urinary tract infection) Status: Acute (4) Bradycardia Code(s): R00.1 - BRADYCARDIA, UNSPECIFIED Status: Chronic (5) COPD (chronic obstructive pulmonary disease) Status: Chronic (6) Chronic systolic CHF (congestive heart failure) Code(s): I50.22 - CHRONIC SYSTOLIC (CONGESTIVE) HEART FAILURE Status: Chronic (7) HLD (hyperlipidemia) Code(s): E78.5 - HYPERLIPIDEMIA, UNSPECIFIED Status: Chronic (8) HTN (hypertension) Code(s): I10 - ESSENTIAL (PRIMARY) HYPERTENSION Status: Chronic (9) PVD (peripheral vascular disease) Code(s): I73.9 - PERIPHERAL VASCULAR DISEASE, UNSPECIFIED Status: Chronic (10) Physical deconditioning Code(s): R53.81 - OTHER MALAISE Status: Chronic (11) HERNESTO (acute kidney injury) Code(s): N17.9 - ACUTE KIDNEY FAILURE, UNSPECIFIED Status: Resolved (12) Moderate dehydration Code(s): E86.0 - DEHYDRATION Status: Resolved (13) Rhabdomyolysis Code(s): M62.82 - RHABDOMYOLYSIS Status: Resolved - Plan Plan: AMS 2/2 UTI, Dehydration -Urine cx pending-NGTD. Tx with IV rocephin at this time. -Pt A&Ox1 upon admission. A&O x2 today. -Pt had not been eating much per report of son. Appears hemoconcentrated based on CBC. Giving gentle fluids at this time. -NS@100mls/hr. Consider stopping today to avoid overload if pt will take PO. HERNESTO has resolved. HERNESTO on CKD -Resolved. -Monitor BMP PVD -Extremity cool to touch, no palpable pulse today -Arterial Doppler 04/12- No flow past popliteal artery. -CV surgery consulted- Dr. Cool- will follow recs -Needs Leg amputated due to no blood flow but does not think good canidate due to heart function and poor healing due to blood flow -Recommends hospice Rhabdomyolysis -Resolved Physical Deconditioning -Pt not able to help herself or assist herself at home. -Family discussed they have home health at home but it is not enough. Said they are ready to begin exploring senior living placement around [place] -CM consulted for senior living assessment and placement -PT/OT consulted for assessment- recommends SNU placement CHF (EF 10-15% 01/05) -Appears stable -Pt has end stage heart failure with EF of 10-15% on past echo in 01/05. -Pt not complaining of SOB. -Continue home meds. Holding lasix. Will continue to monitor for signs of fluid overload as we are giving her fluids at this time -Cardiology consulted- Dr. Frank Assess defribilator to make sure functioning properly Elevated Troponin -Cardiology Consulted-Dr. Frank- follow recs STEMI vs Demand vs Kidney dz -recommends medical management -On therapeutic lovenox COPD -Duonebs q4hr prn if needed. No sign of exacerbation at this time. On O2 2L at this time. HTN -continue home meds HLD -continue home meds Case management consulted. Working on placement in [facility] with hospice. Pt is good hospice canidate at this time. Surgery is not recommended for PVD due to poor heart and weak healing. Pt likely needs hospice care. Discussed end of life care with in depth yesterday. Per nursing he may be coming around on hospice. <Gregorio Chavez - Last Filed: 04/14/17 07:51> Attending Addendum - Attending Addendum Date/Time: 04/14/17 2572 I personally evaluated the patient and discussed the management with Dr. Chavez. I agree with the History, Examination, Assessment and Plan documented above with any addition or exceptions noted below. Will add IV morphine to help with leg pain. Family has gone back and forth on hospice. Anticipating discharge in 2 days to [facility]. <Nasrin Mariee - Last Filed: 04/14/17 11:34>
[2017-04-14] MEDS: Carvedilol 25 MG TAB PO SCH ×2 (09:18→17:36)
[2017-04-14] MEDS: traMADol HCl 50 MG TAB PO PRN (09:18)
[2017-04-14] MEDS: Bupropion 150 MG SR TAB PO SCH ×2 (09:18→20:55)
[2017-04-14] MEDS: Digoxin 0.125 MG TAB PO SCH (09:18)
[2017-04-14] MEDS: clonazePAM 1 MG TAB PO SCH ×2 (09:21→20:55)
[2017-04-14] MEDS: Enoxaparin Sodium 80 MG/0.8 ML SYRINGE SC SCH (09:22)
[2017-04-14] MEDS: Acetaminophen 325 MG TAB PO PRN (09:22)
[2017-04-14] MEDS: traMADol HCl 50 MG TAB PO SCH ×3 (13:42→23:57)
--- NOTE | 2017-04-14 17:46 | EKG ---
Test Reason : AMS Blood Pressure : / mmHG Vent. Rate : 090 BPM Atrial Rate : 016 BPM P-R Int : 000 ms QRS Dur : 254 ms QT Int : 498 ms P-R-T Axes : 000 -56 104 degrees QTc Int : 609 ms Ventricular-paced rhythm Abnormal ECG Confirmed by MILLI SPARKS, JOSELIN ([id number]), acquisitions editor JASMINA HALL ([id number]) on 04/14/2017 5:46:11 PM Referred By: Confirmed By:JOSELIN MORLEY MD
[2017-04-14] MEDS: cefTRIAXone\\ROCEPHIN 1 GM, Syringe 0.4 ML in Sterile Water 9.6 ML SLOW IVP SCH (20:55)
[2017-04-15] MEDS: traMADol HCl 50 MG TAB PO SCH ×4 (05:39→23:29)
--- NOTE | 2017-04-15 07:52 | PDOC.FM ---
- Subjective Subjective: Pt did well over night per nursing. She is getting scheduled tramadol which is helping pain somewhat. The only time pain is an issue is when she is turned. She did not eat much last night, but did take about half of an ensure. Pt was drowsy, but arousable this morning and had no specific complaints. She seemed to be at baseline mentation - Objective Vital Signs & Weight: Vital Signs (12 hours) Temp Pulse Resp BP BP Pulse Ox 04/15/17 07:49 99.0 F 93 18 174/95 H 96 04/15/17 04:41 98.3 F 94 20 167/98 H 97 04/15/17 00:27 98.7 F 82 20 140/85 97 Weight Admit Weight 61.235 kg Weight 66.95 kg I&O: 04/14/17 04/15/17 04/16/17 06:59 06:59 06:59 Intake Total 600 320 Balance 600 320 Result Diagrams: 04/13/17 05:01 04/14/17 06:26 <Gregorio Chavez - Last Filed: 04/15/17 07:50> - Objective Vital Signs & Weight: Vital Signs (12 hours) Temp Pulse Resp BP BP Pulse Ox 04/15/17 11:00 98.2 F 66 16 150/83 H 98 04/15/17 09:17 83 04/15/17 09:10 152/81 H 04/15/17 08:00 99 F 83 18 96 04/15/17 07:49 99.0 F 93 18 174/95 H 96 04/15/17 04:41 98.3 F 94 20 167/98 H 97 Weight Admit Weight 61.235 kg Weight 66.95 kg I&O: 04/14/17 04/15/17 04/16/17 06:59 06:59 06:59 Intake Total 600 320 Balance 600 320 Result Diagrams: 04/13/17 05:01 04/14/17 06:26 <Nasrin Mariee - Last Filed: 04/15/17 14:20> Phys Exam - Physical Examination HEENT: PERRLA, moist MMs Neck: supple, full ROM Respiratory: clear to auscultation bilateral Cardiovascular: RRR, no significant murmur Gastrointestinal: soft, non-tender, no distention Left LE TTP especially with motion. Limb is cool to touch. Faint fem pulse Neurological: non-focal, normal sensation Psychiatric: normal affect Deviation from normal: A&O x2, does not know year. Same as yesterday. Skin: no rash, normal turgor <Gregorio Chavez - Last Filed: 04/15/17 07:50> Dx/Plan (1) Altered mental status Code(s): R41.82 - ALTERED MENTAL STATUS, UNSPECIFIED Status: Chronic (2) Elevated troponin Code(s): R74.8 - ABNORMAL LEVELS OF OTHER SERUM ENZYMES Status: Acute (3) UTI (urinary tract infection) Status: Acute (4) Bradycardia Code(s): R00.1 - BRADYCARDIA, UNSPECIFIED Status: Chronic (5) COPD (chronic obstructive pulmonary disease) Status: Chronic (6) Chronic systolic CHF (congestive heart failure) Code(s): I50.22 - CHRONIC SYSTOLIC (CONGESTIVE) HEART FAILURE Status: Chronic (7) HLD (hyperlipidemia) Code(s): E78.5 - HYPERLIPIDEMIA, UNSPECIFIED Status: Chronic (8) HTN (hypertension) Code(s): I10 - ESSENTIAL (PRIMARY) HYPERTENSION Status: Chronic (9) PVD (peripheral vascular disease) Code(s): I73.9 - PERIPHERAL VASCULAR DISEASE, UNSPECIFIED Status: Chronic (10) Physical deconditioning Code(s): R53.81 - OTHER MALAISE Status: Chronic (11) HERNESTO (acute kidney injury) Code(s): N17.9 - ACUTE KIDNEY FAILURE, UNSPECIFIED Status: Resolved (12) Moderate dehydration Code(s): E86.0 - DEHYDRATION Status: Resolved (13) Rhabdomyolysis Code(s): M62.82 - RHABDOMYOLYSIS Status: Resolved - Plan Plan: AMS 2/2 UTI, Dehydration -s/p 5 days of Rocephin. Stop abx today -Pt A&Ox1 upon admission. A&O x2 today. HERNESTO on CKD -Resolved. -Monitor BMP PVD -Extremity cool to touch, faint fem pulse -Arterial Doppler 04/12- No flow past popliteal artery. -CV surgery consulted- Dr. Cool- will follow recs -Needs Leg amputated due to no blood flow but does not think good canidate due to heart function and poor healing due to blood flow -Recommends hospice Rhabdomyolysis -Resolved Physical Deconditioning -Pt not able to help herself or assist herself at home. -Family discussed they have home health at home but it is not enough. Said they are ready to begin exploring long-term placement around [place] -CM consulted for long-term assessment and placement -PT/OT consulted for assessment- recommends SNU placement CHF (EF 10-15% 01/05) -Appears stable -Pt has end stage heart failure with EF of 10-15% on past echo in 01/05. -Pt not complaining of SOB. -Continue home meds. Holding lasix. Will continue to monitor for signs of fluid overload as we are giving her fluids at this time -Cardiology consulted- Dr. Frank Assess defribilator to make sure functioning properly Elevated Troponin -Cardiology Consulted-Dr. Frank- follow recs STEMI vs Demand vs Kidney dz -recommends medical management -On therapeutic lovenox COPD -Duonebs q4hr prn if needed. No sign of exacerbation at this time. On O2 2L at this time. HTN -continue home meds HLD -continue home meds Case management consulted. Working on placement in [facility] with hospice. Pt is good hospice canidate at this time. Surgery is not recommended for PVD due to poor heart and weak healing. Pt needs hospice care. Discussed end of life care with in depth yesterday. Per nursing he may be coming around on hospice. Will dc tomorrow. <Gregorio Chavez - Last Filed: 04/15/17 07:50> Attending Addendum - Attending Addendum Date/Time: 04/15/17 5929 I personally evaluated the patient and discussed the management with Dr. Chavez. I agree with the History, Examination, Assessment and Plan documented above with any addition or exceptions noted below. The patient is comfortable this morning. She would qualify for hospice but we are not sure if family is ready for it. She will discharge to [facility] tomorrow. <Nasrin Mariee - Last Filed: 04/15/17 14:20>
[2017-04-15] MEDS: Enoxaparin Sodium 80 MG/0.8 ML SYRINGE SC SCH (09:13)
[2017-04-15] MEDS: Bupropion 150 MG SR TAB PO SCH ×2 (09:15→20:03)
[2017-04-15] MEDS: Digoxin 0.125 MG TAB PO SCH (09:17)
[2017-04-15] MEDS: Carvedilol 25 MG TAB PO SCH ×2 (09:19→16:51)
[2017-04-15] MEDS: clonazePAM 1 MG TAB PO SCH ×2 (09:20→20:03)
[2017-04-16] MEDS: traMADol HCl 50 MG TAB PO SCH ×3 (05:31→18:37)
[2017-04-16] MEDS ORDERED: Enoxaparin Sodium 80 MG/0.8 ML SYRINGE SC SCH (09:00)
--- NOTE | 2017-04-16 09:29 | PDOC.FM ---
- Subjective Subjective: Patient did well overnight. She reports that her pain is controlled except when she is moved. The pain is mostly in her leg. She does not have a very big appetite. She denies N/V, SOB, CP. - Objective MAR Reviewed: Yes Vital Signs & Weight: Vital Signs (12 hours) Temp Pulse Resp BP BP Pulse Ox 04/16/17 08:00 98.9 F 77 18 160/93 H 99 04/16/17 04:00 98.6 F 81 20 168/99 H 97 04/16/17 01:04 97.4 F L 71 18 166/92 H 98 Weight Admit Weight 61.235 kg Weight 66.95 kg I&O: 04/15/17 04/16/17 04/17/17 06:59 06:59 06:59 Intake Total 320 205 Balance 320 205 Result Diagrams: 04/13/17 05:01 04/14/17 06:26 <Luanne Oconnor - Last Filed: 04/16/17 09:27> - Objective Vital Signs & Weight: Vital Signs (12 hours) Temp Pulse Resp BP Pulse Ox 04/16/17 16:00 98.1 F 69 18 146/85 H 04/16/17 12:09 97.1 F L 71 16 150/85 H 97 04/16/17 09:39 77 04/16/17 08:00 98.9 F 77 18 160/93 H 99 Weight Admit Weight 61.235 kg Weight 66.95 kg I&O: 04/15/17 04/16/17 04/17/17 06:59 06:59 06:59 Intake Total 320 205 270 Balance 320 205 270 Result Diagrams: 04/13/17 05:01 04/14/17 06:26 <Keny Stallings - Last Filed: 04/16/17 18:17> Phys Exam - Physical Examination Constitutional: NAD HEENT: moist MMs Respiratory: no wheezing, no rales, no rhonchi, clear to auscultation bilateral Cardiovascular: RRR, no significant murmur, no rub Gastrointestinal: soft, non-tender, no distention, positive bowel sounds Musculoskeletal: no edema No pulses in RLE Neurological: non-focal Psychiatric: normal affect, A&O x 3 Skin: no rash, cap refill <2 seconds <Luanne Oconnor - Last Filed: 04/16/17 09:27> Dx/Plan (1) Altered mental status Code(s): R41.82 - ALTERED MENTAL STATUS, UNSPECIFIED Status: Chronic (2) PVD (peripheral vascular disease) Code(s): I73.9 - PERIPHERAL VASCULAR DISEASE, UNSPECIFIED Status: Chronic (3) Physical deconditioning Code(s): R53.81 - OTHER MALAISE Status: Chronic (4) Bipolar disorder Code(s): F31.9 - BIPOLAR DISORDER, UNSPECIFIED Status: Acute (5) Cardiomyopathy Code(s): I42.9 - CARDIOMYOPATHY, UNSPECIFIED Status: Acute QualifierTitle: Cardiomyopathy type: unspecified Qualified Code(s): I42.9 - Cardiomyopathy, unspecified (6) Non compliance w medication regimen Code(s): Z91.14 - PATIENT'S OTHER NONCOMPLIANCE WITH MEDICATION REGIMEN Status : Acute (7) Tobacco abuse Code(s): Z72.0 - TOBACCO USE Status: Acute (8) UTI (urinary tract infection) Status: Acute QualifierTitle: Urinary tract infection type: acute cystitis Hematuria presence: without hematuria Qualified Code(s): N30.00 - Acute cystitis without hematuria (9) Acute on chronic systolic (congestive) heart failure Code(s): I50.23 - ACUTE ON CHRONIC SYSTOLIC (CONGESTIVE) HEART FAILURE Status : Chronic (10) CKD (chronic kidney disease) stage 3, GFR 30-59 ml/min Code(s): N18.3 - CHRONIC KIDNEY DISEASE, STAGE 3 (MODERATE) Status: Chronic (11) COPD (chronic obstructive pulmonary disease) Status: Chronic QualifierTitle: COPD type: unspecified COPD Qualified Code(s): J44.9 - Chronic obstructive pulmonary disease, unspecified (12) HLD (hyperlipidemia) Code(s): E78.5 - HYPERLIPIDEMIA, UNSPECIFIED Status: Chronic QualifierTitle: Hyperlipidemia type: unspecified Qualified Code(s): E78.5 - Hyperlipidemia, unspecified (13) HTN (hypertension) Code(s): I10 - ESSENTIAL (PRIMARY) HYPERTENSION Status: Chronic QualifierTitle: Hypertension type: essential hypertension (14) HERNESTO (acute kidney injury) Code(s): N17.9 - ACUTE KIDNEY FAILURE, UNSPECIFIED Status: Resolved (15) Moderate dehydration Code(s): E86.0 - DEHYDRATION Status: Resolved (16) Rhabdomyolysis Code(s): M62.82 - RHABDOMYOLYSIS Status: Resolved QualifierTitle: Rhabdomyolysis type: non-traumatic - Plan Plan: AMS 2/2 UTI, Dehydration -s/p 5 days of Rocephin. abx stopped on 04/15 -Pt A&Ox1 upon admission. A&O x2 today. HERNESTO on CKD -Resolved. PVD -Extremity cool to touch, faint fem pulse -Arterial Doppler 04/12- No flow past popliteal artery. -CV surgery consulted- Dr. Cool- will follow recs -Needs Leg amputated due to no blood flow but does not think good canidate due to heart function and poor healing due to blood flow -Recommends hospice Rhabdomyolysis -Resolved Physical Deconditioning -Pt not able to help herself or assist herself at home. -Family discussed they have home health at home but it is not enough. Said they are ready [place] [facility] [place] -CM consulted for [place] [facility] [place] and [place] -PT/OT consulted for assessment- recommends SNU placement CHF (EF 10-15% 01/05) -Appears stable -Pt has end stage heart failure with EF of 10-15% on past echo in 01/05. -Pt not complaining of SOB. -Continue home meds. Holding lasix. Will continue to monitor for signs of fluid overload as we are giving her fluids at this time -Cardiology consulted- Dr. Frank Assess defibrillator to make sure functioning properly Elevated Troponin -Cardiology Consulted-Dr. Frank- follow recs STEMI vs Demand vs Kidney dz -recommends medical management -On therapeutic lovenox COPD -Duonebs q4hr prn if needed. No sign of exacerbation at this time. On O2 2L at this time. HTN -continue home meds HLD -continue home meds Case management consulted. Placement in [place] [facility]. Pt is good hospice candidate at this time, but family not on board at this time. Surgery is not recommended for PVD due to poor heart and weak healing. Pt needs hospice care. Discussed end of life care with in depth yesterday. Per nursing he may be coming around on hospice. Will dc tomorrow. <Luanne Oconnor - Last Filed: 04/16/17 09:27> Attending Addendum - Attending Addendum Date/Time: 04/16/171816 I personally evaluated the patient and discussed the management with Dr. Oconnor. I agree with the History, Examination, Assessment and Plan documented above with any addition or exceptions noted below. Possible discharge. <Keny Stallings - Last Filed: 04/16/17 18:17>
[2017-04-16] MEDS: Digoxin 0.125 MG TAB PO SCH (09:39)
[2017-04-16] MEDS: Bupropion 150 MG SR TAB PO SCH (09:40)
[2017-04-16] MEDS: clonazePAM 1 MG TAB PO SCH (09:41)
[2017-04-16] MEDS: Carvedilol 25 MG TAB PO SCH ×2 (09:41→16:23)
[2017-04-16 16:09] VITALS: BP 146/85; TEMP 98.1
--- NOTE | 2017-04-23 06:57 | DIS-2 ---
DATE OF ADMISSION: 04/10/2017 DATE OF DISCHARGE: 04/16/2017 ADMITTING ATTENDING: Nasrin Mariee M.D. DISCHARGE ATTENDING: Dr. Stallings. RESIDENT: Spencer Roberts M.D., PGY1. CONSULTATIONS: Cardiology, Dr. Walt Frank; and Cardiovascular Surgery, Dr. Darren Cool. PROCEDURES: No procedures IMAGIN04/10/2017, chest x-ray showed no acute findings, stable appearance of the chest, 8. Brain CT showed, 1. No evidence of acute intracranial abnormality. 2. Small vessel ischemic disease. 3. 04/10/2017, ultrasound showed unable to find any pulses to complete the arterial study in the rig ht leg. DISCHARGE MEDICATIONS: Include, albuterol sulfate 1.25 mg nebulizer p.r.n., aspirin 325 mg p.o. cece y, Tessalon 100 mg p.o. t.i.d. p.r.n., bupropion 150 mg p.o. b.i.d., carvedilol 12.5 mg p.o. b.i.d., clonazepam 1 mg p.o. b.i.d., digoxin 125 mcg p.o. daily, Colace 100 mg p.o. daily, furosemide 20 mg p .o. at 9:00 and 1400 hours, DuoNeb 3 mL nebulized p.r.n., isosorbide mononitrate 30 mg p.o. daily, mo metasone and formoterol 100, Dulera inhaler 2 puffs inhaler b.i.d., potassium chloride/K-Dur 20 mEq p .o. daily, Senokot 2 tabs p.o. p.r.n., and tramadol 50 mg p.o. q.6 hours. PRIMARY DIAGNOSES: 1. Altered mental status secondary to urinary tract infection/dehydration. 2. Acute kidney injury on chronic kidney disease. 3. Peripheral vascular disease with no blood flow past the popliteal artery. 4. Rhabdomyolysis. 5. Physical deconditioning. 6. Congestive heart failure with an EF of 10%-15%. 7. Elevated troponin, (ST-elevation myocardial infarction versus demand versus kidney disease). 8. Chronic obstructive pulmonary disease. 9. Hypertension. 10. Hyperlipidemia. BRIEF HOSPITAL COURSE: This is a 61-year-old female that came in confused and being very weak. Per family members, she has been getting weaker and confused throughout last week, came in being very weak. Son said that he could not help her up anymore and says that she has had a very decreased appetite the last 2 days, and when speaking with the patient, she was only alert and orient ed x1. It should be noted that this patient had been in multiple times in the last few months with r ecurrent confusion, heart problems due to her decreased ejection fraction 10%-15%. In the past, she had denied (48). When she came in, her potassium was 5.6, her creatinine was 4.48, and her t roponin was 0.721, which was very much elevated from past troponins that [facility] visits. Her BNP was 733.5, but this is actually decreased from past visits, wher e BNP would be around the 1000s. At this time, the EKG did show some ST-elevation as well. Patient had not had much of an appetite and was dehydrated. We ended up getting a UA, which showed positive nitrites, 0-3 white blood cells, 3+ bacteria. At this time, we call that a UTI. We stated her alter ed mental status and that her acute kidney injury was likely due to dehydration plus mixed UTI jerome e. We are not sure if her troponin was elevated as well just due to her severe kidney disease, even though with her echo being very decreased in the 15%, patient did not seem fluid overloaded at this t anisa, so we decided to give her fluids at rate of 100. Again, it was hard to get a full history from the patient, as she was very much confused, talking with family. Also, when she came in, it should b e noted that her hematocrit and her hemoglobin seemed hemoconcentrated; that is going along with the dehydration picture. The patient also had not been getting enough her CK was 1322, diagnosed w ith rhabdomyolysis. Again, she is getting fluids due to this. We held her Lasix while she was here. At this time, with ST-elevation and an elevated troponin, we consulted Cardiology, Dr. Walt maldonado. She did have peripheral vascular disease. Her left leg had already been amputated above the kn ee. Right leg was very cool to touch when she was admitted as well, but at this time, we could feel weak faint pulse in the pedial pulse. At this time, we consulted Dr. Leon Hampton on the , who said that her elevated troponin was either STEMI versus demand ischemia versus the acute kidney injur y. He recommended with as bad as her outlook was looking that we continue to treat her medically. S o, we would keep her on therapeutic Lovenox. At this time due to the patient's weakness and recurren t hospitalizations, we also consulted the case management team, consulted palliative care as well and did talk about possible placement for the patient for the time being. The next day on the , her troponins were trended from 0.7 to 0.055 to 0.584 to 0.256. Creatinine was bumped down to 2.55 with . Her CK would go down to 959 which creatinine the next done on the was down to 1.46 whi ch came down again to 1.19 to 1.20. She did get gentle fluids at a rate of 100. On the , she wa s complaining of severe leg pain still. Leg was still cool to touch at this time. We finally decide d to get arterial Dopplers. At this time, it was found that she had no popliteal artery. At t his time, we consulted Cardiovascular Surgery, who recommended that with her poor heart failure and h er kidney disease and outlook, she was not a good medical candidate for surgery, and at this time dec ided that hospice would be the best option for her. I talked with her about going on hospice . seemed to understand the situation, but at this time, he was not ready for her to go on a hospice. We got her approved [facility] jail [facility] in [place], but we are waiting on placement f or her. On Sunday we gave her fluid break. The patient never did seem to be fluid overloaded. We d id consult hospice to come talk with the , but at that time he denied hospice care. She did c ontinue getting fluids until the . Dr. Frank put an order in on the to make sure jobyi llator was working properly for her heart failure. It was found on Sunday that she would have placem ent and bed on Sunday. Patient would hang on again getting fluids, getting treated with therapeutic Lovenox for her NSTEMI. On Sunday, the patient was stable. Creatinine had finally improved. She ag ain was still complaining of some leg pain and with the tramadol. The patient was still . Pain was in her leg, but again Dr. Cool was not going to do the surgery due to poor surgical nayan date due to heart failure. Again, at this time, our recommendations were for patient to go home with hospice, but again was not agreeable at this time. She did go to jail unit in [place]. We will continue recommending hospice to them, as there is not much more with multiple of her condit ions and her alertness. DISPOSITION: Guarded. DISCHARGE INSTRUCTIONS: 1. Location: [facility]. 2. Activity: Activity as tolerated. We will need PT and OT. 3. Diet: Heart healthy diet, low salt, fluid restriction. 4. Followup: Will need to follow up with primary care doctor within a week for close followup.
== END 2017-04-16 19:37 | DRG 682 ==
LOC: ERS 11:06 → 2NO 14:24 → T4-B 04-14 18:22
PROVIDERS: ADMIT Family Medicine; ATTEND Family Medicine
DX: N17.9 Acute kidney failure, unspecified (principal); I21.3 ST elevation (STEMI) myocardial infarction of unspecified site; I13.0 Hypertensive heart and chronic kidney disease with heart failure and stage 1 through stage 4 chronic kidney disease, or unspecified chronic kidney disease; I50.84 End stage heart failure; N30.00 Acute cystitis without hematuria; M62.82 Rhabdomyolysis; I47.1 Supraventricular tachycardia; I50.22 Chronic systolic (congestive) heart failure; N39.0 Urinary tract infection, site not specified; E86.0 Dehydration; Z51.5 Encounter for palliative care; Z89.612 Acquired absence of left leg above knee; I73.9 Peripheral vascular disease, unspecified; J44.9 Chronic obstructive pulmonary disease, unspecified; Z23 Encounter for immunization; Z95.810 Presence of automatic (implantable) cardiac defibrillator; F17.210 Nicotine dependence, cigarettes, uncomplicated; I25.5 Ischemic cardiomyopathy; I25.10 Atherosclerotic heart disease of native coronary artery without angina pectoris; E66.9 Obesity, unspecified; E78.00 Pure hypercholesterolemia, unspecified; Z91.11 Patient's noncompliance with dietary regimen; Z91.14 Patient's other noncompliance with medication regimen; Z68.26 Body mass index [BMI] 26.0-26.9, adult; F31.9 Bipolar disorder, unspecified; N18.3 Chronic kidney disease, stage 3 (moderate)
CPT/HCPCS: 36415; 36416; 51701; 70450; 71045; 80048; 80053; 80162; 80306; 80307; 81003; 81015; 82140; 82550; 82553; 83605; 83690; 83880; 84439; 84443; 84481; 84484; 85025; 85610; 85730; 87040; 87086; 90471; 90682; 90732; 93005; 93010; 94760; 96361; 96365; 96366; 96372; 96374; A4216; A4353; G0008; G0009; G8978-GP-CM; G8979-GP-CK; G8987-GO-CN; G8988-GO-CL; G8996-GN-CI; G8997-GN-CI; J0696; J1650; J1956; J2185; Q0162; Q2036